=== PATIENT | female | born 1990 | race Caucasian/White ===

== ENCOUNTER 2016-12-09 02:15 | Emergency (ER) | payer MEDICAID, OTHER ==
[2016-12-09] MEDS ORDERED: KETOROLAC 30 MG/ML VIAL (J1885) As Ordered ONE (03:25)
[2016-12-09] MEDS ORDERED: CLINDAMYCIN INJ 900MG/6ML VIAL As Ordered ONE (03:25)
[2016-12-09] MEDS ORDERED: methylPREDNISolone INJ 125 MG/2 ML VIAL (J2930) As Ordered ONE (03:25)
[2016-12-09] MEDS ORDERED: ONDANSETRON 4MG/2ML VIAL (J2405) As Ordered ONE (03:44)
[2016-12-09] MEDS ORDERED: MORPHINE 4 MG/ML 1ML SYRINGE As Ordered ONE ×3 (03:44→06:43)
[2016-12-09 04:11] LABS: BASO % 0.3 % (0.0-1.0); EOS # 0.1 K/mm3 (0.0-0.50); LARGE UNSTAINED CELL # 0.2 K/mm3 (0.0-0.4); LARGE UNSTAINED CELL % 1.7 % (0.0-4.0); LYMPH # 2.5 K/mm3 (1.5-6.5); MEAN CORPUSCULAR HEMOGLOBIN 30.3 pg (27.0-33.0); MEAN CORPUSCULAR HGB CONC 34.3 g/dl (32.0-36.5); MEAN CORPUSCULAR VOLUME 88.3 fl (80.0-96.0); MONO # 0.6 K/mm3 (0.0-0.8); MONO % 5.1 % (0.0-5.0); NEUTROPHILS # 8.8 K/mm3 (1.8-7.7); NEUTROPHILS % 71.9 % (36.0-66.0); PLATELET COUNT, AUTOMATED 168 k/mm3 (150-450); RED CELL DISTRIBUTION WIDTH 12.3 % (11.5-14.5); WHITE BLOOD COUNT 12.3 K/mm3 (4.0-10.0)
[2016-12-09 04:25] LABS: CONTROL LINE HCG INT CTR LINE PRESENT
[2016-12-09 04:27] LABS: ERYTHROCYTE SEDIMENTATION RATE 10 mm/hr (0-20)
[2016-12-09 04:33] LABS: ALBUMIN 4.3 GM/DL (3.2-5.2); ALBUMIN/GLOBULIN RATIO 1.39 (1.00-1.93); ALKALINE PHOSPHATASE 79 U/L (45-117); ALT/SGPT 13 U/L (12-78); ANION GAP 9 MEQ/L (8-16); AST/SGOT 8 U/L (15-37); BILIRUBIN,TOTAL 0.6 MG/DL (0.2-1.0); BLOOD UREA NITROGEN 14 MG/DL (7-18); CALCIUM LEVEL 8.6 MG/DL (8.5-10.1); CARBON DIOXIDE LEVEL 25 MEQ/L (21-32); CHLORIDE LEVEL 108 MEQ/L (98-107); CREATININE FOR GFR 0.98 MG/DL (0.55-1.02); GLOMERULAR FILTRATION RATE > 60.0 (>60); GLUCOSE, FASTING 87 MG/DL (70-105); POTASSIUM SERUM 3.8 MEQ/L (3.5-5.1); SODIUM LEVEL 142 MEQ/L (136-145); TOTAL PROTEIN 7.4 GM/DL (6.4-8.2)
[2016-12-09] MEDS ORDERED: ISOVUE-370 76% 100ML VIAL (Q9967) As Ordered ONE (05:32)
--- NOTE | 2016-12-09 06:00 | REPUSA ---
HISTORY: Soft tissue infection. COMPARISON: TECHNIQUE: Multiple thin section helically-acquired axially-displayed and helically acquired coronall y displayed computed tomographic images of the face are obtained from the mandible through the fronta l sinuses, with images obtained at soft tissue and bone window. 2D reformatted images were performed. FINDINGS: Edema and swelling of the lower lip suggestive of cellulitis. Associated 1 cm abscess formation. IMPRESSION: Edema and swelling of the lower lip suggestive of cellulitis. Associated 1 cm abscess formation. Thank you for your kind referral of this patient
--- NOTE | 2016-12-09 07:08 | EDDOCDS ---
Physician Documentation [facility] Name: Sintia Hirsch Age: 26 yrs Sex: Female : 1990 Arrival Date: 12/09/2016 Time: 02:15 Bed 9 Private MD: Disposition: 12/09/16 06:40 Discharged to Home/Self Care. Impression: Cutaneous abscess of face - lower lip. - Condition is Stable. - Discharge Instructions: Abscess. - Medication Reconciliation, Local Pharmacy Hours form. - Follow up: David Trotter; When: Upon discharge from the Emergency Department; Reason: Continuance of care. - Problem is an acute exacerbation. - Symptoms have improved. - Notes: DR TROTTER WANTS YOU TO PRESENT TO HIS OFFICE THIS MORNING AT 0800 FOR EVALUATION FOR DRAINAGE. Historical: - Allergies: No known drug Allergies; - Home Meds: 1. naproxen 500 mg Oral tab 1 tab 2 times per day recently prescribed by [facility] 2. sulfamethoxazole-trimethoprim 800-160 mg Oral tab 1 tab every 12 hours (Last dose: 12/08/2016 20:00) - PMHx: scleroderma; - PSHx: retina reaatachment surgery - right eye; - Social history: Smoking status: Patient states was never smoker of tobacco. No barriers to communication noted, The patient speaks fluent Amharic, Speaks appropriately for age. - Family history: Not pertinent. - : The pt / caregiver states he / she is not on anticoagulants. Home medication list is obtained from the patient. - Exposure Risk Screening:: None identified. 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 5 in. (165.10 cm); Pain 9/10; 06:23 BP 126 / 71; Pulse 98; Resp 16; Temp 98.5; Pulse Ox 99% on R/A; Pain 5/10; cf2 02:24 Body Mass Index 21.47 (58.51 kg, 165.10 cm) nn1 MDM: 02:42 IV Saline Lock ordered. ef1 02:42 Solu-MEDROL 125 mg IVP once ordered. ef1 02:42 Clindamycin 900 mg IVPB once over 30 mins; dilute in 50mL of NS or D5W ordered. ef1 02:42 ketorolac 30 mg IVP once ordered. ef1 02:44 CBC with Diff Ordered. EDMS 02:44 Complete Comphrensive Metabolic Ordered. EDMS 02:50 ERYTHROCYTE SEDIMENTATION RATE Ordered. EDMS 02:51 C REACTIVE PROTEIN QUANTITATIV Ordered. EDMS 03:08 HCG,Serum Qualitative Ordered. EDMS 03:42 morphine 4 mg IVP every 30 minutes; Document pain score/vitals after each dose (Hold if mm11 SBP < 90mmHg) x2 ordered. 03:42 Ondansetron 4 mg IVP once ordered. mm11 03:51 Financial registration complete. [facility] 03:58 [facility] Payment Agreement was scanned into [employer] and attached to record. slh 04:29 CBC with Diff Reviewed. mm11 04:29 HCG,Serum Qualitative Reviewed. mm11 04:48 CBC with Diff Reviewed. mm11 04:48 Complete Comphrensive Metabolic Reviewed. mm11 04:48 C REACTIVE PROTEIN QUANTITATIV Reviewed. mm11 04:48 ERYTHROCYTE SEDIMENTATION RATE Reviewed. mm11 04:57 CT Maxillofacial with contrast Ordered. EDMS 06:37 CT Maxillofacial with contrast Reviewed. mm11 06:39 morphine 4 mg IVP once ordered. mm11 Administered Medications: 03:00 Drug: Solu-MEDROL 125 mg [Solu-Medrol 500 mg intravenous solution (125 mg)] Route: IVP; cf2 Site: left antecubital; 07:05 Follow up: Response: No significant change. cf2 03:00 Drug: Clindamycin 900 mg [clindamycin 300 mg/50 mL in 5 % dextrose intravenous cf2 piggyback] Route: IVPB; Infused Over: 30 mins; Site: left antecubital; 03:00 Drug: ketorolac 30 mg [ketorolac 30 mg/mL (1 mL) injection solution (1 mL)] Route: IVP; cf2 Site: left antecubital; 07:05 Follow up: Response: No significant change. cf2 03:45 Drug: morphine 4 mg [morphine 4 mg/mL intravenous cartridge (1 mL)] Route: IVP; Site: cf2 left antecubital; 03:45 Drug: Ondansetron 4 mg [ondansetron HCl 2 mg/mL intravenous solution (2 mL)] Route: cf2 IVP; Site: left antecubital; 07:04 Follow up: Response: No significant change. cf2 04:15 Drug: morphine 4 mg [morphine 4 mg/mL intravenous cartridge (1 mL)] Route: IVP; Site: cf2 left antecubital; 07:04 Follow up: Response: No significant change. cf2 06:45 Drug: morphine 4 mg [morphine 4 mg/mL intravenous cartridge (1 mL)] Route: IVP; Site: cf2 left antecubital; 07:03 Follow up: Response: No significant change. cf2 Signatures: Dispatcher MedHost EDMS Ryan Herring DO DO mm11 Nicole East PA-C PA-C ef1 Marcela Beyer NikkoleRN RN nn1 Jenifer Matta RN RN cf2 The chart was reviewed and I authenticate all verbal orders and agree with the evaluation and treatment provided.Corrections: (The following items were deleted from the chart) 02:50 02:44 ERYTHROCYTE SEDIMENTATION RATE+LAB ordered. EDMS EDMS 02:50 02:44 C REACTIVE PROTEIN QUANTITATIV+LAB ordered. EDMS EDMS Attachments: 03:58 [facility] Payment Agreement [facility] MTDD
--- NOTE | 2016-12-09 07:08 | EDDOCDS ---
Nurse's Notes [facility] Name: Sintia Hirsch Age: 26 yrs Sex: Female : 1990 Arrival Date: 12/09/2016 Time: 02:15 Bed 9 Private MD: Diagnosis: Cutaneous abscess of face-lower lip Presentation: 12/09 02:19 Presenting complaint: Patient states: infection of her lower lip. Lip is swollen and nn1 painful. Patient has history of autoimmume disease. Patient reports having pimple on lower lip 2 days ago, reports swelling and pain began yesterday, worsened overnight. Suicide/Homicide risk assessment- the patient denies having any suicidal and/or homicidal ideations and does not present with any other emotional, behavioral or mental health complaints. 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 Transition of care: patient was not received from another setting of care. 02:19 Method Of Arrival: Walkin/Carried/Asstd nn1 02:19 Acuity: FREDIS Level 4 nn1 02:19 Adult Sepsis Screening: The patient does not have new or worsening altered mentation. nn1 Patient's respiratory rate is less than 22. Systolic blood pressure is greater than 100. Patient has a qSOFA score of 0- Negative Sepsis Screen. Triage Assessment: 02:26 General: Appears uncomfortable. Pain: Location: lower lip Pain currently is 9 out of 10 nn1 on a pain scale. Pt Declines HIV testing. The patient is triaged at the bedside. See Assessment in Nurses Notes section of ED record. Neurological: No deficits noted. Respiratory: Airway is patent Respiratory effort is even, unlabored, Respiratory pattern is regular, symmetrical. Derm: Skin is pink, warm & dry. Swelling and discoloration noted to lower lip. Swollen area noted on lower lip. CRUISE GUIDE: 02:24 LMP 11/16/2016 nn1 Historical: - Allergies: No known drug Allergies; - Home Meds: 1. naproxen 500 mg Oral tab 1 tab 2 times per day recently prescribed by [facility] 2. sulfamethoxazole-trimethoprim 800-160 mg Oral tab 1 tab every 12 hours (Last dose: 12/08/2016 20:00) - PMHx: scleroderma; - PSHx: retina reaatachment surgery - right eye; - Social history: Smoking status: Patient states was never smoker of tobacco. No barriers to communication noted, The patient speaks fluent Portuguese, Speaks appropriately for age. - Family history: Not pertinent. - : The pt / caregiver states he / she is not on anticoagulants. Home medication list is obtained from the patient. - Exposure Risk Screening:: None identified. Screenin:06 Screening information is obtained from the patient. Fall risk: No risks identified. cf2 Assistance ADL's: requires no assistance with activities of daily living. Abuse/DV Screen: The patient / caregiver reports he/she is: not in a situation that causes fear, pain or injury. Nutritional screening: No deficits noted. Advance Directives: Further advance directive information is declined. home support is adequate. Assessment: 05:06 General: Appears distressed, Behavior is appropriate for age, cooperative. Pain: cf2 Location: mouth. Neurological: No deficits noted. EENT: No deficits noted. Cardiovascular: No deficits noted. Respiratory: No deficits noted. GI: No deficits noted. : No deficits noted. Derm: No deficits noted. Musculoskeletal: No deficits noted. 06:23 Reassessment: Patient states symptoms have improved. Adult Sepsis Screening: The cf2 patient does not have new or worsening altered mentation. Patient's respiratory rate is less than 22. Systolic blood pressure is greater than 100. Patient has a qSOFA score of 0- Negative Sepsis Screen. Vital Signs: 02:24 BP 140 / 60; Pulse 101; Resp 18; Temp 98.4(T); Pulse Ox 99% on R/A; Weight 58.51 kg; nn1 Height 5 ft. 5 in. (165.10 cm); Pain 9/10; 06:23 BP 126 / 71; Pulse 98; Resp 16; Temp 98.5; Pulse Ox 99% on R/A; Pain 5/10; cf2 02:24 Body Mass Index 21.47 (58.51 kg, 165.10 cm) nn1 Vitals: 02:24 Log In Time: December 09, 2016 at 02:17. nn1 ED Course: 02:16 Patient visited by Emy Vargas Reg. hs2 02:16 Patient moved to Waiting hs2 02:20 Triage Initiated nn1 02:28 Patient moved to 9 nn1 02:39 Nicole East PA-C is PHCP. ef1 02:40 Ryan Herring DO is Attending Physician. ef1 02:41 Patient visited by Nicole East PA-C. ef1 02:55 Jenifer Matta RN is Primary Nurse. cf2 02:55 Patient visited by Jenifer Matta RN. cf2 03:24 Patient visited by Jenifer Matta RN. cf2 03:53 Patient visited by Jenifer Matta RN. cf2 03:55 Patient visited by Jenifer Matta RN. cf2 03:55 Complete Comphrensive Metabolic Sent. cf2 03:55 CBC with Diff Sent. cf2 03:55 ERYTHROCYTE SEDIMENTATION RATE Sent. cf2 03:55 C REACTIVE PROTEIN QUANTITATIV Sent. cf2 03:55 HCG,Serum Qualitative Sent. cf2 03:58 [facility] Payment Agreement was scanned into [email or web address] and attached to record. [facility] 04:07 Patient name changed from Sintia\S\J\S\Hirsch\S\ to Sintia\S\Collin\S\Hirsch. EDMS 04:26 Patient visited by Jenifer Matta RN. cf2 04:56 Patient visited by Jenifer Matta RN. cf2 05:06 Patient visited by Jenifer Matta RN. cf2 05:06 The patient / caregiver is instructed regarding the plan of care and ED course. Patient soraya2 has correct armband on for positive identification. Placed in gown. Bed in low position. Call light in reach. Side rails up X 1. Side rails up X2. Property :Personal belongings accompany Pt. Door closed. Noise minimized. Visitors limited. Lights dimmed. Moved to private room. Verbal reassurance given. Warm blanket given. Pillow given. Head of bed elevated. 05:06 Inserted saline lock: 20 gauge in right antecubital area and blood collected. The cf2 patient tolerated the procedure well. No procedures done that require assistance. 05:46 Patient visited by Jenifer Matta RN. cf2 06:07 CT Maxillofacial with contrast Returned. EDMS 06:18 Patient visited by Ryan Herring DO. mm11 06:23 Patient visited by Jenifer Matta RN. cf2 06:39 David Trotter is Referral Physician. mm11 07:03 Patient visited by Jenifer Matta RN. cf2 07:03 Patient visited by Jenifer Matta,MITUL. cf2 07:05 Patient visited by Jenifer Matta,MITUL. cf2 Administered Medications: 03:00 Drug: Solu-MEDROL 125 mg [Solu-Medrol 500 mg intravenous solution (125 mg)] Route: IVP; cf2 Site: left antecubital; 07:05 Follow up: Response: No significant change. cf2 03:00 Drug: Clindamycin 900 mg [clindamycin 300 mg/50 mL in 5 % dextrose intravenous cf2 piggyback] Route: IVPB; Infused Over: 30 mins; Site: left antecubital; 03:00 Drug: ketorolac 30 mg [ketorolac 30 mg/mL (1 mL) injection solution (1 mL)] Route: IVP; cf2 Site: left antecubital; 07:05 Follow up: Response: No significant change. cf2 03:45 Drug: morphine 4 mg [morphine 4 mg/mL intravenous cartridge (1 mL)] Route: IVP; Site: cf2 left antecubital; 03:45 Drug: Ondansetron 4 mg [ondansetron HCl 2 mg/mL intravenous solution (2 mL)] Route: cf2 IVP; Site: left antecubital; 07:04 Follow up: Response: No significant change. cf2 04:15 Drug: morphine 4 mg [morphine 4 mg/mL intravenous cartridge (1 mL)] Route: IVP; Site: cf2 left antecubital; 07:04 Follow up: Response: No significant change. cf2 06:45 Drug: morphine 4 mg [morphine 4 mg/mL intravenous cartridge (1 mL)] Route: IVP; Site: cf2 left antecubital; 07:03 Follow up: Response: No significant change. cf2 Order Results: Lab Order: CBC with Diff; SPEC'M 12/09/16 03:40 Test: WHITE BLOOD COUNT; Value: 12.3; Range: 4.0-10.0; Abnormal: Above high normal; Units: K/mm3; Status: F Test: RED BLOOD COUNT; Value: 4.54; Range: 4.00-5.40; Units: M/mm3; Status: F Test: HEMOGLOBIN; Value: 13.8; Range: 12.0-16.0; Units: g/dl; Status: F Test: HEMATOCRIT; Value: 40.1; Range: 36.0-47.0; Units: %; Status: F Test: MEAN CORPUSCULAR VOLUME; Value: 88.3; Range: 80.0-96.0; Units: fl; Status: F Test: MEAN CORPUSCULAR HEMOGLOBIN; Value: 30.3; Range: 27.0-33.0; Units: pg; Status: F Test: MEAN CORPUSCULAR HGB CONC; Value: 34.3; Range: 32.0-36.5; Units: g/dl; Status: F Test: RED CELL DISTRIBUTION WIDTH; Value: 12.3; Range: 11.5-14.5; Units: %; Status: F Test: PLATELET COUNT, AUTOMATED; Value: 168; Range: 150-450; Units: k/mm3; Status: F Test: NEUTROPHILS %; Value: 71.9; Range: 36.0-66.0; Abnormal: Above high normal; Units: %; Status: F Test: LYMPH %; Value: 20.0; Range: 24.0-44.0; Abnormal: Below low normal; Units: %; Status: F Test: MONO %; Value: 5.1; Range: 0.0-5.0; Abnormal: Above high normal; Units: %; Status: F Test: EOS %; Value: 1.0; Range: 0.0-3.0; Units: %; Status: F Test: BASO %; Value: 0.3; Range: 0.0-1.0; Units: %; Status: F Test: LARGE UNSTAINED CELL %; Value: 1.7; Range: 0.0-4.0; Units: %; Status: F Test: NEUTROPHILS #; Value: 8.8; Range: 1.8-7.7; Abnormal: Above high normal; Units: K/mm3; Status: F Test: LYMPH #; Value: 2.5; Range: 1.5-6.5; Units: K/mm3; Status: F Test: MONO #; Value: 0.6; Range: 0.0-0.8; Units: K/mm3; Status: F Test: EOS #; Value: 0.1; Range: 0.0-0.50; Units: K/mm3; Status: F Test: BASO #; Value: 0.0; Range: 0.0-0.2; Units: K/mm3; Status: F Test: LARGE UNSTAINED CELL #; Value: 0.2; Range: 0.0-0.4; Units: K/mm3; Status: F Lab Order: Complete Comphrensive Metabolic; SPEC'M 12/09/16 03:40 Test: GLUCOSE, FASTING; Value: 87; Range: 70-105; Units: MG/DL; Status: F Test: BLOOD UREA NITROGEN; Value: 14; Range: 7-18; Units: MG/DL; Status: F Test: CREATININE FOR GFR; Value: 0.98; Range: 0.55-1.02; Units: MG/DL; Status: F Test: GLOMERULAR FILTRATION RATE; Value: > 60.0; Range: >60; Status: F Test: SODIUM LEVEL; Value: 142; Range: 136-145; Units: MEQ/L; Status: F Test: POTASSIUM SERUM; Value: 3.8; Range: 3.5-5.1; Units: MEQ/L; Status: F Test: CHLORIDE LEVEL; Value: 108; Range: 98-107; Abnormal: Above high normal; Units: MEQ/L; Status: F Test: CARBON DIOXIDE LEVEL; Value: 25; Range: 21-32; Units: MEQ/L; Status: F Test: ANION GAP; Value: 9; Range: 8-16; Units: MEQ/L; Status: F Test: CALCIUM LEVEL; Value: 8.6; Range: 8.5-10.1; Units: MG/DL; Status: F Test: AST/SGOT; Value: 8; Range: 15-37; Abnormal: Below low normal; Units: U/L; Status: F Test: ALT/SGPT; Value: 13; Range: 12-78; Units: U/L; Status: F Test: ALKALINE PHOSPHATASE; Value: 79; Range: 45-117; Units: U/L; Status: F Test: BILIRUBIN,TOTAL; Value: 0.6; Range: 0.2-1.0; Units: MG/DL; Status: F Test: TOTAL PROTEIN; Value: 7.4; Range: 6.4-8.2; Units: GM/DL; Status: F Test: ALBUMIN; Value: 4.3; Range: 3.2-5.2; Units: GM/DL; Status: F Test: ALBUMIN/GLOBULIN RATIO; Value: 1.39; Range: 1.00-1.93; Status: F Test Note: ; Units are mL/min/1.73 m2 Chronic Kidney Disease Staging per NKF: Stage I & II GFR >=60 Normal to Mildly Decreased Stage III GFR 30-59 Moderately Decreased Stage IV GFR 15-29 Severely Decreased Stage V GFR <15 Very Little GFR Left ESRD GFR <15 on 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 Lab Order: ERYTHROCYTE SEDIMENTATION RATE; SPEC'M 12/09/16 03:40 Test: ERYTHROCYTE SEDIMENTATION RATE; Value: 10; Range: 0-20; Units: mm/hr; Status: F Lab Order: C REACTIVE PROTEIN QUANTITATIV; SPEC'M 12/09/16 03:40 Test: C REACTIVE PROTEIN QUANTITATIV; Value: 2.66; Range: 0.00-0.30; Abnormal: Above high normal; Units: MG/DL; Status: F Lab Order: HCG,Serum Qualitative; SPEC'M 12/09/16 03:40 Test: HCG, SERUM QUALITATIVE; Value: NEGATIVE; Range: NEGATIVE; Status: F Radiology Order: CT Maxillofacial with contrast Test: CT Maxillofacial with contrast REASON FOR EXAMINATION: lip swelling; ; HISTORY: Soft tissue infection.; COMPARISON:; TECHNIQUE: Multiple thin section helically-acquired axially-displayed and helically acquired coronall; y displayed computed tomographic images of the face are obtained from the mandible through the fronta; l sinuses, with images obtained at soft tissue and bone window. 2D reformatted images were performed.; ; FINDINGS:; Edema and swelling of the lower lip suggestive of cellulitis.; Associated 1 cm abscess formation.; IMPRESSION:; Edema and swelling of the lower lip suggestive of cellulitis.; Associated 1 cm abscess formation.; Thank you for your kind referral of this patient; ; Outcome: 06:40 Discharge ordered by Provider. mm11 07:05 Discharge Assessment: Patient awake, alert and oriented x 3. No cognitive and/or cf2 functional deficits noted. Patient verbalized understanding of disposition instructions. Patient awake and alert. Oriented to person, place and time. patient administered narcotics - yes. Patient was admitted to the hospital or transferred to another facility. The following High Risk Discharge criteria are identified: None. Condition: good Condition: stable Condition: improved. Discharge instructions given to patient, Instructed on discharge instructions, medication usage, Demonstrated understanding of instructions, medications. CT Study completed. 07:06 Patient left the ED. cf2 Signatures: Dispatcher MedHost EDMS Ryan Herring DO DO mm11 Nicole East, PA-C PA-C ef1 Marcela Beyer NikkoleRN RN nn1 Emy Vargas, Reg Reg hs2 Jenifer Matta,RN RN cf2 Corrections: (The following items were deleted from the chart) 02:33 02:19 Acuity: FREDIS Level 3 nn1 nn1 MTDD
--- NOTE | 2016-12-11 08:08 | EDDOCDS ---
[facility] Name: Sintia Hirsch Age: 26 yrs Sex: Female : 1990 Arrival Date: 12/09/2016 Time: 02:15 Bed 9 Private MD: Diagnosis: Cutaneous abscess of face-lower lip Presentation: 12/09 02:19 Presenting complaint: Patient states: infection of her lower lip. Lip is swollen and nn1 painful. Patient has history of autoimmume disease. Patient reports having pimple on lower lip 2 days ago, reports swelling and pain began yesterday, worsened overnight. Suicide/Homicide risk assessment- the patient denies having any suicidal and/or homicidal ideations and does not present with any other emotional, behavioral or mental health complaints. Status: Patient is not a patient services assistant or dependent. Transition of care: patient was not received from another setting of care. 02:19 Method Of Arrival: Walkin/Carried/Asstd nn1 02:19 Acuity: FREDIS Level 4 nn1 02:19 Adult Sepsis Screening: The patient does not have new or worsening altered mentation. nn1 Patient's respiratory rate is less than 22. Systolic blood pressure is greater than 100. Patient has a qSOFA score of 0- Negative Sepsis Screen. Triage Assessment: 02:26 General: Appears uncomfortable. Pain: Location: lower lip Pain currently is 9 out of 10 nn1 on a pain scale. Pt Declines HIV testing. The patient is triaged at the bedside. See Assessment in Nurses Notes section of ED record. Neurological: No deficits noted. Respiratory: Airway is patent Respiratory effort is even, unlabored, Respiratory pattern is regular, symmetrical. Derm: Skin is pink, warm & dry. Swelling and discoloration noted to lower lip. Swollen area noted on lower lip. 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 naproxen 500 mg Oral tab 1 tab 2 times per day recently prescribed by [facility] 2. sulfamethoxazole-trimethoprim 800-160 mg Oral tab 1 tab every 12 hours (Last dose: 12/08/2016 20:00) - PMHx: scleroderma; - PSHx: retina reaatachment surgery - right eye; - Social history: Smoking status: Patient states was never smoker of tobacco. No barriers to communication noted, The patient speaks fluent Gabonese, Speaks appropriately for age. - Family history: Not pertinent. - : The pt / caregiver states he / she is not on anticoagulants. Home medication list is obtained from the patient. - Exposure Risk Screening:: None identified. Screenin:06 Screening information is obtained from the patient. Fall risk: No risks identified. cf2 Assistance ADL's: requires no assistance with activities of daily living. Abuse/DV Screen: The patient / caregiver reports he/she is: not in a situation that causes fear, pain or injury. Nutritional screening: No deficits noted. Advance Directives: Further advance directive information is declined. home support is adequate. Assessment: 05:06 General: Appears distressed, Behavior is appropriate for age, cooperative. Pain: cf2 Location: mouth. Neurological: No deficits noted. EENT: No deficits noted. Cardiovascular: No deficits noted. Respiratory: No deficits noted. GI: No deficits noted. : No deficits noted. Derm: No deficits noted. Musculoskeletal: No deficits noted. 06:23 Reassessment: Patient states symptoms have improved. Adult Sepsis Screening: The cf2 patient does not have new or worsening altered mentation. Patient's respiratory rate is less than 22. Systolic blood pressure is greater than 100. Patient has a qSOFA score of 0- Negative Sepsis Screen. Vital Signs: 02:24 BP 140 / 60; Pulse 101; Resp 18; Temp 98.4(T); Pulse Ox 99% on R/A; Weight 58.51 kg; nn1 Height 5 ft. 5 in. (165.10 cm); Pain 9/10; 06:23 BP 126 / 71; Pulse 98; Resp 16; Temp 98.5; Pulse Ox 99% on R/A; Pain 5/10; cf2 02:24 Body Mass Index 21.47 (58.51 kg, 165.10 cm) nn1 Vitals: 02:24 Log In Time: December 09, 2016 at 02:17. nn1 ED Course: 02:16 Patient visited by Emy Vargas Reg. hs2 02:16 Patient moved to Waiting hs2 02:20 Triage Initiated nn1 02:28 Patient moved to 9 nn1 02:39 Nicole East PA-C is PHCP. ef1 02:40 Ryan Herring DO is Attending Physician. ef1 02:41 Patient visited by Nicole East PA-C. ef1 02:55 Jenifer Matta RN is Primary Nurse. cf2 02:55 Patient visited by Jenifer Matta RN. cf2 03:24 Patient visited by Jenifer Matta RN. cf2 03:53 Patient visited by Jenifer Matta RN. cf2 03:55 Patient visited by Jenifer Matta RN. cf2 03:55 Complete Comphrensive Metabolic Sent. cf2 03:55 CBC with Diff Sent. cf2 03:55 ERYTHROCYTE SEDIMENTATION RATE Sent. cf2 03:55 C REACTIVE PROTEIN QUANTITATIV Sent. cf2 03:55 HCG,Serum Qualitative Sent. cf2 03:58 [facility] Payment Agreement was scanned into [employer] and attached to record. [facility] 04:07 Patient name changed from Sintia\S\J\S\Hirsch\S\ to Sintia\S\Collin\S\Hirsch. EDMS 04:26 Patient visited by Jenifer Matta RN. cf2 04:56 Patient visited by Jenifer Matta RN. cf2 05:06 Patient visited by Jenifer Matta RN. cf2 05:06 The patient / caregiver is instructed regarding the plan of care and ED course. Patient soraya2 has correct armband on for positive identification. Placed in gown. Bed in low position. Call light in reach. Side rails up X 1. Side rails up X2. Property :Personal belongings accompany Pt. Door closed. Noise minimized. Visitors limited. Lights dimmed. Moved to private room. Verbal reassurance given. Warm blanket given. Pillow given. Head of bed elevated. 05:06 Inserted saline lock: 20 gauge in right antecubital area and blood collected. The cf2 patient tolerated the procedure well. No procedures done that require assistance. 05:46 Patient visited by Jenifer Matta RN. cf2 06:07 CT Maxillofacial with contrast Returned. EDMS 06:18 Patient visited by Ryan Herring DO. mm11 06:23 Patient visited by Jenifer Matta RN. cf2 06:39 David Trotter is Referral Physician. mm11 07:03 Patient visited by Jenifer Matta,MITUL. cf2 07:03 Patient visited by Jenifer Matta,MITUL. cf2 07:05 Patient visited by Jenifer Matta,MITUL. cf2 14:20 T-Sheet-- Draft Copy was scanned into Native[employer] and attached to record. gb 14:20 Radiology Report was scanned into NativeX and attached to record. gb Administered Medications: 03:00 Drug: Solu-MEDROL 125 mg [Solu-Medrol 500 mg intravenous solution (125 mg)] Route: IVP; cf2 Site: left antecubital; 07:05 Follow up: Response: No significant change. cf2 03:00 Drug: Clindamycin 900 mg [clindamycin 300 mg/50 mL in 5 % dextrose intravenous cf2 piggyback] Route: IVPB; Infused Over: 30 mins; Site: left antecubital; 03:00 Drug: ketorolac 30 mg [ketorolac 30 mg/mL (1 mL) injection solution (1 mL)] Route: IVP; cf2 Site: left antecubital; 07:05 Follow up: Response: No significant change. cf2 03:45 Drug: morphine 4 mg [morphine 4 mg/mL intravenous cartridge (1 mL)] Route: IVP; Site: cf2 left antecubital; 03:45 Drug: Ondansetron 4 mg [ondansetron HCl 2 mg/mL intravenous solution (2 mL)] Route: cf2 IVP; Site: left antecubital; 07:04 Follow up: Response: No significant change. cf2 04:15 Drug: morphine 4 mg [morphine 4 mg/mL intravenous cartridge (1 mL)] Route: IVP; Site: cf2 left antecubital; 07:04 Follow up: Response: No significant change. cf2 06:45 Drug: morphine 4 mg [morphine 4 mg/mL intravenous cartridge (1 mL)] Route: IVP; Site: cf2 left antecubital; 07:03 Follow up: Response: No significant change. cf2 Order Results: Lab Order: CBC with Diff; SPEC'M 12/09/16 03:40 Test: WHITE BLOOD COUNT; Value: 12.3; Range: 4.0-10.0; Abnormal: Above high normal; Units: K/mm3; Status: F Test: RED BLOOD COUNT; Value: 4.54; Range: 4.00-5.40; Units: M/mm3; Status: F Test: HEMOGLOBIN; Value: 13.8; Range: 12.0-16.0; Units: g/dl; Status: F Test: HEMATOCRIT; Value: 40.1; Range: 36.0-47.0; Units: %; Status: F Test: MEAN CORPUSCULAR VOLUME; Value: 88.3; Range: 80.0-96.0; Units: fl; Status: F Test: MEAN CORPUSCULAR HEMOGLOBIN; Value: 30.3; Range: 27.0-33.0; Units: pg; Status: F Test: MEAN CORPUSCULAR HGB CONC; Value: 34.3; Range: 32.0-36.5; Units: g/dl; Status: F Test: RED CELL DISTRIBUTION WIDTH; Value: 12.3; Range: 11.5-14.5; Units: %; Status: F Test: PLATELET COUNT, AUTOMATED; Value: 168; Range: 150-450; Units: k/mm3; Status: F Test: NEUTROPHILS %; Value: 71.9; Range: 36.0-66.0; Abnormal: Above high normal; Units: %; Status: F Test: LYMPH %; Value: 20.0; Range: 24.0-44.0; Abnormal: Below low normal; Units: %; Status: F Test: MONO %; Value: 5.1; Range: 0.0-5.0; Abnormal: Above high normal; Units: %; Status: F Test: EOS %; Value: 1.0; Range: 0.0-3.0; Units: %; Status: F Test: BASO %; Value: 0.3; Range: 0.0-1.0; Units: %; Status: F Test: LARGE UNSTAINED CELL %; Value: 1.7; Range: 0.0-4.0; Units: %; Status: F Test: NEUTROPHILS #; Value: 8.8; Range: 1.8-7.7; Abnormal: Above high normal; Units: K/mm3; Status: F Test: LYMPH #; Value: 2.5; Range: 1.5-6.5; Units: K/mm3; Status: F Test: MONO #; Value: 0.6; Range: 0.0-0.8; Units: K/mm3; Status: F Test: EOS #; Value: 0.1; Range: 0.0-0.50; Units: K/mm3; Status: F Test: BASO #; Value: 0.0; Range: 0.0-0.2; Units: K/mm3; Status: F Test: LARGE UNSTAINED CELL #; Value: 0.2; Range: 0.0-0.4; Units: K/mm3; Status: F Lab Order: Complete Comphrensive Metabolic; SPEC'M 12/09/16 03:40 Test: GLUCOSE, FASTING; Value: 87; Range: 70-105; Units: MG/DL; Status: F Test: BLOOD UREA NITROGEN; Value: 14; Range: 7-18; Units: MG/DL; Status: F Test: CREATININE FOR GFR; Value: 0.98; Range: 0.55-1.02; Units: MG/DL; Status: F Test: GLOMERULAR FILTRATION RATE; Value: > 60.0; Range: >60; Status: F Test: SODIUM LEVEL; Value: 142; Range: 136-145; Units: MEQ/L; Status: F Test: POTASSIUM SERUM; Value: 3.8; Range: 3.5-5.1; Units: MEQ/L; Status: F Test: CHLORIDE LEVEL; Value: 108; Range: 98-107; Abnormal: Above high normal; Units: MEQ/L; Status: F Test: CARBON DIOXIDE LEVEL; Value: 25; Range: 21-32; Units: MEQ/L; Status: F Test: ANION GAP; Value: 9; Range: 8-16; Units: MEQ/L; Status: F Test: CALCIUM LEVEL; Value: 8.6; Range: 8.5-10.1; Units: MG/DL; Status: F Test: AST/SGOT; Value: 8; Range: 15-37; Abnormal: Below low normal; Units: U/L; Status: F Test: ALT/SGPT; Value: 13; Range: 12-78; Units: U/L; Status: F Test: ALKALINE PHOSPHATASE; Value: 79; Range: 45-117; Units: U/L; Status: F Test: BILIRUBIN,TOTAL; Value: 0.6; Range: 0.2-1.0; Units: MG/DL; Status: F Test: TOTAL PROTEIN; Value: 7.4; Range: 6.4-8.2; Units: GM/DL; Status: F Test: ALBUMIN; Value: 4.3; Range: 3.2-5.2; Units: GM/DL; Status: F Test: ALBUMIN/GLOBULIN RATIO; Value: 1.39; Range: 1.00-1.93; Status: F Test Note: ; Units are mL/min/1.73 m2 Chronic Kidney Disease Staging per NKF: Stage I & II GFR >=60 Normal to Mildly Decreased Stage III GFR 30-59 Moderately Decreased Stage IV GFR 15-29 Severely Decreased Stage V GFR <15 Very Little GFR Left ESRD GFR <15 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 Lab Order: ERYTHROCYTE SEDIMENTATION RATE; SPEC'M 12/09/16 03:40 Test: ERYTHROCYTE SEDIMENTATION RATE; Value: 10; Range: 0-20; Units: mm/hr; Status: F Lab Order: C REACTIVE PROTEIN QUANTITATIV; SPEC'M 12/09/16 03:40 Test: C REACTIVE PROTEIN QUANTITATIV; Value: 2.66; Range: 0.00-0.30; Abnormal: Above high normal; Units: MG/DL; Status: F Lab Order: HCG,Serum Qualitative; SPEC'M 12/09/16 03:40 Test: HCG, SERUM QUALITATIVE; Value: NEGATIVE; Range: NEGATIVE; Status: F Radiology Order: CT Maxillofacial with contrast Test: CT Maxillofacial with contrast REASON FOR EXAMINATION: lip swelling; ; HISTORY: Soft tissue infection.; COMPARISON:; TECHNIQUE: Multiple thin section helically-acquired axially-displayed and helically acquired coronall; y displayed computed tomographic images of the face are obtained from the mandible through the fronta; l sinuses, with images obtained at soft tissue and bone window. 2D reformatted images were performed.; ; FINDINGS:; Edema and swelling of the lower lip suggestive of cellulitis.; Associated 1 cm abscess formation.; IMPRESSION:; Edema and swelling of the lower lip suggestive of cellulitis.; Associated 1 cm abscess formation.; Thank you for your kind referral of this patient; ; Outcome: 06:40 Discharge ordered by Provider. mm11 07:05 Discharge Assessment: Patient awake, alert and oriented x 3. No cognitive and/or cf2 functional deficits noted. Patient verbalized understanding of disposition instructions. Patient awake and alert. Oriented to person, place and time. patient administered narcotics - yes. Patient was admitted to the hospital or transferred to another facility. The following High Risk Discharge criteria are identified: None. Condition: good Condition: stable Condition: improved. Discharge instructions given to patient, Instructed on discharge instructions, medication usage, Demonstrated understanding of instructions, medications. CT Study completed. 07:06 Patient left the ED. cf2 Signatures: Dispatcher [employer] EDMS Julissa Lynch, Reg Reg gb Ryan Herring, DO mm11 Nicole East PA-C PAMata ef1 Marcela Beyer Nikkole, RN RN nn1 Emy Vargas, Reg Reg hs2 Jenifer Matta RN RN cf2 Corrections: (The following items were deleted from the chart) 02:33 02:19 Acuity: FREDIS Level 3 nn1 nn1 Chart Complete MTDD
--- NOTE | 2016-12-11 08:08 | EDDOCDS ---
Physician Documentation [facility] Name: Sintia Hirsch Age: 26 yrs Sex: Female : 1990 Arrival Date: 12/09/2016 Time: 02:15 Bed 9 Private MD: Disposition: 12/09/16 06:40 Discharged to Home/Self Care. Impression: Cutaneous abscess of face - lower lip. - Condition is Stable. - Discharge Instructions: Abscess. - Medication Reconciliation, Local Pharmacy Hours form. - Follow up: David Trotter; When: Upon discharge from the Emergency Department; Reason: Continuance of care. - Problem is an acute exacerbation. - Symptoms have improved. - Notes: DR TROTTER WANTS YOU TO PRESENT TO HIS OFFICE THIS MORNING AT 0800 FOR EVALUATION FOR DRAINAGE. Historical: - Allergies: No known drug Allergies; - Home Meds: 1. naproxen 500 mg Oral tab 1 tab 2 times per day recently prescribed by [facility] 2. sulfamethoxazole-trimethoprim 800-160 mg Oral tab 1 tab every 12 hours (Last dose: 12/08/2016 20:00) - PMHx: scleroderma; - PSHx: retina reaatachment surgery - right eye; - Social history: Smoking status: Patient states was never smoker of tobacco. No barriers to communication noted, The patient speaks fluent Azeri, Speaks appropriately for age. - Family history: Not pertinent. - : The pt / caregiver states he / she is not on anticoagulants. Home medication list is obtained from the patient. - Exposure Risk Screening:: None identified. 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 5 in. (165.10 cm); Pain 9/10; 06:23 BP 126 / 71; Pulse 98; Resp 16; Temp 98.5; Pulse Ox 99% on R/A; Pain 5/10; cf2 02:24 Body Mass Index 21.47 (58.51 kg, 165.10 cm) nn1 MDM: 02:42 IV Saline Lock ordered. ef1 02:42 Solu-MEDROL 125 mg IVP once ordered. ef1 02:42 Clindamycin 900 mg IVPB once over 30 mins; dilute in 50mL of NS or D5W ordered. ef1 02:42 ketorolac 30 mg IVP once ordered. ef1 02:44 CBC with Diff Ordered. EDMS 02:44 Complete Comphrensive Metabolic Ordered. EDMS 02:50 ERYTHROCYTE SEDIMENTATION RATE Ordered. EDMS 02:51 C REACTIVE PROTEIN QUANTITATIV Ordered. EDMS 03:08 HCG,Serum Qualitative Ordered. EDMS 03:42 morphine 4 mg IVP every 30 minutes; Document pain score/vitals after each dose (Hold if mm11 SBP < 90mmHg) x2 ordered. 03:42 Ondansetron 4 mg IVP once ordered. mm11 03:51 Financial registration complete. [facility] 03:58 [facility] Payment Agreement was scanned into [employer] and attached to record. slh 04:29 CBC with Diff Reviewed. mm11 04:29 HCG,Serum Qualitative Reviewed. mm11 04:48 CBC with Diff Reviewed. mm11 04:48 Complete Comphrensive Metabolic Reviewed. mm11 04:48 C REACTIVE PROTEIN QUANTITATIV Reviewed. mm11 04:48 ERYTHROCYTE SEDIMENTATION RATE Reviewed. mm11 04:57 CT Maxillofacial with contrast Ordered. EDMS 06:37 CT Maxillofacial with contrast Reviewed. mm11 06:39 morphine 4 mg IVP once ordered. mm11 14:20 T-Sheet-- Draft Copy was scanned into [employer] and attached to record. 14:20 Radiology Report was scanned into [employer] and attached to record. gb Administered Medications: 03:00 Drug: Solu-MEDROL 125 mg [Solu-Medrol 500 mg intravenous solution (125 mg)] Route: IVP; cf2 Site: left antecubital; 07:05 Follow up: Response: No significant change. cf2 03:00 Drug: Clindamycin 900 mg [clindamycin 300 mg/50 mL in 5 % dextrose intravenous cf2 piggyback] Route: IVPB; Infused Over: 30 mins; Site: left antecubital; 03:00 Drug: ketorolac 30 mg [ketorolac 30 mg/mL (1 mL) injection solution (1 mL)] Route: IVP; cf2 Site: left antecubital; 07:05 Follow up: Response: No significant change. cf2 03:45 Drug: morphine 4 mg [morphine 4 mg/mL intravenous cartridge (1 mL)] Route: IVP; Site: cf2 left antecubital; 03:45 Drug: Ondansetron 4 mg [ondansetron HCl 2 mg/mL intravenous solution (2 mL)] Route: cf2 IVP; Site: left antecubital; 07:04 Follow up: Response: No significant change. cf2 04:15 Drug: morphine 4 mg [morphine 4 mg/mL intravenous cartridge (1 mL)] Route: IVP; Site: cf2 left antecubital; 07:04 Follow up: Response: No significant change. cf2 06:45 Drug: morphine 4 mg [morphine 4 mg/mL intravenous cartridge (1 mL)] Route: IVP; Site: cf2 left antecubital; 07:03 Follow up: Response: No significant change. cf2 Signatures: Dispatcher [employer] EDMS Julissa Lynch, Reg Reg gb Ryan Herring DO DO mm11 Nicole East, PAEllenC PA-C ef1 Marcela Beyer Nikkole,RN RN nn1 Jenifer Matta,RN RN cf2 The chart was reviewed and I authenticate all verbal orders and agree with the evaluation and treatment provided.Corrections: (The following items were deleted from the chart) 02:50 02:44 ERYTHROCYTE SEDIMENTATION RATE+LAB ordered. EDMS EDMS 02:50 02:44 C REACTIVE PROTEIN QUANTITATIV+LAB ordered. EDMS EDMS Attachments: 03:58 [facility] [place] Agreement [facility] 14:20 T-Sheet-- Draft Copy Chart Complete [facility]
--- NOTE | 2016-12-11 08:08 | EDDOCDS ---
Physician Documentation [facility] Name: Sintia Hirsch Age: 26 yrs Sex: Female : 1990 Arrival Date: 12/09/2016 Time: 02:15 Bed 9 Private MD: Disposition: 12/09/16 06:40 Discharged to Home/Self Care. Impression: Cutaneous abscess of face - lower lip. - Condition is Stable. - Discharge Instructions: Abscess. - Medication Reconciliation, Local Pharmacy Hours form. - Follow up: David Trotter; When: Upon discharge from the Emergency Department; Reason: Continuance of care. - Problem is an acute exacerbation. - Symptoms have improved. - Notes: DR TROTTER WANTS YOU TO PRESENT TO HIS OFFICE THIS MORNING AT 0800 FOR EVALUATION FOR DRAINAGE. Historical: - Allergies: No known drug Allergies; - Home Meds: 1. naproxen 500 mg Oral tab 1 tab 2 times per day recently prescribed by [facility] 2. sulfamethoxazole-trimethoprim 800-160 mg Oral tab 1 tab every 12 hours (Last dose: 12/08/2016 20:00) - PMHx: scleroderma; - PSHx: retina reaatachment surgery - right eye; - Social history: Smoking status: Patient states was never smoker of tobacco. No barriers to communication noted, The patient speaks fluent Frisian, Speaks appropriately for age. - Family history: Not pertinent. - : The pt / caregiver states he / she is not on anticoagulants. Home medication list is obtained from the patient. - Exposure Risk Screening:: None identified. 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 5 in. (165.10 cm); Pain 9/10; 06:23 BP 126 / 71; Pulse 98; Resp 16; Temp 98.5; Pulse Ox 99% on R/A; Pain 5/10; cf2 02:24 Body Mass Index 21.47 (58.51 kg, 165.10 cm) nn1 MDM: 02:42 IV Saline Lock ordered. ef1 02:42 Solu-MEDROL 125 mg IVP once ordered. ef1 02:42 Clindamycin 900 mg IVPB once over 30 mins; dilute in 50mL of NS or D5W ordered. ef1 02:42 ketorolac 30 mg IVP once ordered. ef1 02:44 CBC with Diff Ordered. EDMS 02:44 Complete Comphrensive Metabolic Ordered. EDMS 02:50 ERYTHROCYTE SEDIMENTATION RATE Ordered. EDMS 02:51 C REACTIVE PROTEIN QUANTITATIV Ordered. EDMS 03:08 HCG,Serum Qualitative Ordered. EDMS 03:42 morphine 4 mg IVP every 30 minutes; Document pain score/vitals after each dose (Hold if mm11 SBP < 90mmHg) x2 ordered. 03:42 Ondansetron 4 mg IVP once ordered. mm11 03:51 Financial registration complete. [facility] 03:58 [facility] Payment Agreement was scanned into [employer] and attached to record. slh 04:29 CBC with Diff Reviewed. mm11 04:29 HCG,Serum Qualitative Reviewed. mm11 04:48 CBC with Diff Reviewed. mm11 04:48 Complete Comphrensive Metabolic Reviewed. mm11 04:48 C REACTIVE PROTEIN QUANTITATIV Reviewed. mm11 04:48 ERYTHROCYTE SEDIMENTATION RATE Reviewed. mm11 04:57 CT Maxillofacial with contrast Ordered. EDMS 06:37 CT Maxillofacial with contrast Reviewed. mm11 06:39 morphine 4 mg IVP once ordered. mm11 14:20 T-Sheet-- Draft Copy was scanned into [employer] and attached to record. 14:20 Radiology Report was scanned into [employer] and attached to record. gb Administered Medications: 03:00 Drug: Solu-MEDROL 125 mg [Solu-Medrol 500 mg intravenous solution (125 mg)] Route: IVP; cf2 Site: left antecubital; 07:05 Follow up: Response: No significant change. cf2 03:00 Drug: Clindamycin 900 mg [clindamycin 300 mg/50 mL in 5 % dextrose intravenous cf2 piggyback] Route: IVPB; Infused Over: 30 mins; Site: left antecubital; 03:00 Drug: ketorolac 30 mg [ketorolac 30 mg/mL (1 mL) injection solution (1 mL)] Route: IVP; cf2 Site: left antecubital; 07:05 Follow up: Response: No significant change. cf2 03:45 Drug: morphine 4 mg [morphine 4 mg/mL intravenous cartridge (1 mL)] Route: IVP; Site: cf2 left antecubital; 03:45 Drug: Ondansetron 4 mg [ondansetron HCl 2 mg/mL intravenous solution (2 mL)] Route: cf2 IVP; Site: left antecubital; 07:04 Follow up: Response: No significant change. cf2 04:15 Drug: morphine 4 mg [morphine 4 mg/mL intravenous cartridge (1 mL)] Route: IVP; Site: cf2 left antecubital; 07:04 Follow up: Response: No significant change. cf2 06:45 Drug: morphine 4 mg [morphine 4 mg/mL intravenous cartridge (1 mL)] Route: IVP; Site: cf2 left antecubital; 07:03 Follow up: Response: No significant change. cf2 Signatures: Dispatcher [employer] EDMS Julissa Lynch, Reg Reg gb Ryan Herring DO DO mm11 Nicole East, PAEllenC PA-C ef1 Marcela Beyer Nikkole,RN RN nn1 Jenifer Matta,RN RN cf2 The chart was reviewed and I authenticate all verbal orders and agree with the evaluation and treatment provided.Corrections: (The following items were deleted from the chart) 02:50 02:44 ERYTHROCYTE SEDIMENTATION RATE+LAB ordered. EDMS EDMS 02:50 02:44 C REACTIVE PROTEIN QUANTITATIV+LAB ordered. EDMS EDMS Attachments: 03:58 [facility] Payment Agreement [facility] 14:20 T-Sheet-- Draft Copy Chart [facility]
== END 2016-12-09 07:06 | disposition home or self-care (01) ==
LOC: M ED 02:15
DX: K13.0 Diseases of lips (principal); M34.9 Systemic sclerosis, unspecified
CPT/HCPCS: 36415; 70487; 80053; 84703; 85025; 85652; 86140; 96374; 96375; 96376; 99284; J1885; J2405; J2930; Q9967

== ENCOUNTER 2016-12-09 09:10 | Emergency (ER) | payer MEDICAID ==
[2016-12-09] MEDS ORDERED: KETOROLAC 30 MG/ML VIAL (J1885) As Ordered ONE (10:09)
[2016-12-09] MEDS ORDERED: VANCOMYCIN 1000 MG/20 ML VIAL (J3370) As Ordered ONE (10:28)
[2016-12-09] MEDS ORDERED: VANCOMYCIN HCL 500 MG/10 ML VIAL (J3370) As Ordered ONE (10:28)
--- NOTE | 2016-12-09 12:08 | EDDOCDS ---
Physician Documentation [facility] Name: Sintia Hirshc Age: 26 yrs Sex: Female : 1990 Arrival Date: 12/09/2016 Time: 09:10 Bed I2 / M2 Private MD: Chai Sanabria R. Disposition: 12/09/16 10:28 Discharged to Home/Self Care. Impression: Cutaneous abscess of face - recheck. - Condition is Stable. - Medication Reconciliation form. - Follow up: Emergency Department; When: in 12 hours for a repeat dose of the antibiotic. . - Problem is an ongoing problem. - Symptoms are unchanged. Historical: - Home Meds: 1. naproxen 500 mg Oral tab 1 tab 2 times per day recently prescribed by [facility] 2. sulfamethoxazole-trimethoprim 800-160 mg Oral tab 1 tab every 12 hours - PMHx: scleroderma; - PSHx: retina reaatachment surgery - right eye; - Social history: Smoking status: Patient states was never smoker of tobacco. No barriers to communication noted, The patient speaks fluent Israeli, Speaks appropriately for age. - Family history: Not pertinent. - : The pt / caregiver states he / she is not on anticoagulants. Home medication list is obtained from the patient. - Exposure Risk Screening:: None identified. 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 5 in. (165.10 cm); Pain 5/10; 10:31 BP 121 / 65; Pulse 72; Resp 18; Temp 98.7(TE); Pulse Ox 97% on R/A; Pain 6/10; dem1 11:54 BP 117 / 65; Pulse 89; Resp 16; Temp 99.4(TE); Pulse Ox 96% on R/A; Pain 0/10; dem1 09:12 Body Mass Index 21.47 (58.51 kg, 165.10 cm) elp MDM: 09:55 IV Saline Lock ordered. cc10 10:06 ketorolac 30 mg IVP once ordered. cc10 10:19 Financial registration complete. lg 10:25 vancomycin (loading dose for pt. wt. 50-59kg) 1250 mg IVPB once ordered. cc10 11:41 [facility] Payment Agreement was scanned into [employer] and attached to record. lg Administered Medications: 10:11 Drug: ketorolac 30 mg [ketorolac 30 mg/mL (1 mL) injection solution (1 mL)] Route: IVP; jmk Site: left forearm; 10:56 Follow up: Response: Pain is decreased [facility] 10:42 Drug: vancomycin (loading dose for pt. wt. 50-59kg) 1250 mg Route: IVPB; Site: left jmk forearm; 11:52 Follow up: IV Status: Completed infusion kr3 12:06 Follow up: IV Status: Completed infusion [facility] Signatures: Dispatcher MedHost EDMS Som Mcdonald RN RN Collin OlivoRN RN tamannak Roddy Flores, Kan Reg lg Oscar, Jayce, PA-C PA-C cc10 Anjali Payton RN kr3 The chart was reviewed and I authenticate all verbal orders and agree with the evaluation and treatment provided.Corrections: (The following items were deleted from the chart) 09:58 09:56 CBC WITH DIFFERENTIAL+LAB ordered. EDMS EDMS 09:58 09:56 BASIC METABOLIC PROFILE+LAB ordered. EDMS EDMS Attachments: 11:41 [facility] Payment Agreement lg MTDD
--- NOTE | 2016-12-09 12:10 | EDDOCDS ---
Nurse's Notes [facility] Name: Sintia Hirsch Age: 26 yrs Sex: Female : 1990 Arrival Date: 12/09/2016 Time: 09:10 Bed I2 / M2 Private MD: Chai Sanabria R. Diagnosis: Cutaneous abscess of face-recheck Presentation: 12/09 09:34 Presenting complaint: Patient states: has infected lower lip - had abcess opened during j night. was seen by ENT (Dr. Trotter) this am - sent back to ED for admission. no more drainage. Adult Sepsis Screening: The patient does not have new or worsening altered mentation. Patient's respiratory rate is less than 22. Systolic blood pressure is greater than 100. Patient has a qSOFA score of 0- Negative Sepsis Screen. Suicide/Homicide risk assessment- the patient denies having any suicidal and/or homicidal ideations and does not present with any other emotional, behavioral or mental health complaints. Status: Patient is not a kosher dietary service supervisor or dependent. Transition of care: patient was not received from another setting of care. 09:34 Acuity: FREDIS Level 3 [facility] 09:34 Method Of Arrival: Walkin/Carried/Asstd [facility] Triage Assessment: 09:38 General: Appears in no apparent distress, comfortable, Behavior is cooperative. Pain: [facility] Location: mouth Pain currently is 5 out of 10 on a pain scale. HIV screening NA for this visit Offered previously. 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 naproxen 500 mg Oral tab 1 tab 2 times per day recently prescribed by [facility] 2. sulfamethoxazole-trimethoprim 800-160 mg Oral tab 1 tab every 12 hours - PMHx: scleroderma; - PSHx: retina reaatachment surgery - right eye; - Social history: Smoking status: Patient states was never smoker of tobacco. No barriers to communication noted, The patient speaks fluent Chadian, Speaks appropriately for age. - Family history: Not pertinent. - : The pt / caregiver states he / she is not on anticoagulants. Home medication list is obtained from the patient. - Exposure Risk Screening:: None identified. Screenin:11 Screening information is obtained from the patient. Fall risk: No risks identified. jmk Assistance ADL's: requires no assistance with activities of daily living. Abuse/DV Screen: The patient / caregiver reports he/she is: not in a situation that causes fear, pain or injury. Nutritional screening: No deficits noted. Advance Directives: Currently, there is no health care proxy. There is no active DNR order. There is no living will. There is no Power of Tube Coremaker. home support is adequate. Assessment: 10:11 General: Appears in no apparent distress, skin warm and dry color satisfactory. Moist jmk pink oral mucosa. lower lip swollen and protruding. denies nausea . reports pian level of 6/10 and medicated for same. 11:11 General: Appears states adequate pain control at 5/10. IV vanco infusing without event..jmk 11:41 General: Appears resting with eyes closed resp easy and regular. vanco nearing jmk completion. 12:06 General: Appears reports less pain. receptive to discharge. saline lock maintained and jmk instructed regarding care of same. secured additionally with pilar wrap.. Vital Signs: 09:12 BP 134 / 68; Pulse 86; Resp 18; Temp 97.9; Pulse Ox 99% ; Weight 58.51 kg; Height 5 ft. elp 5 in. (165.10 cm); Pain 5/10; 10:31 BP 121 / 65; Pulse 72; Resp 18; Temp 98.7(TE); Pulse Ox 97% on R/A; Pain 6/10; dem1 11:54 BP 117 / 65; Pulse 89; Resp 16; Temp 99.4(TE); Pulse Ox 96% on R/A; Pain 0/10; dem1 09:12 Body Mass Index 21.47 (58.51 kg, 165.10 cm) [facility] Vitals: 09:12 Log In Time: December 09, 2016 at 09:00. [facility] ED Course: 09:12 Patient visited by Angie Schwartz PCA. elp 09:12 Chai Sanabria is Private Physician. elp 09:12 Patient moved to Waiting elp 09:13 Patient visited by Angie Schwartz PCA. elp 09:13 Patient moved to Pre RCE elp 09:37 Triage Initiated bc 09:39 Patient visited by Som Mcdonald RN. [facility] 09:45 Patient moved to Triage 2 dwg 09:47 [facility] cc[facility] 09:47 Lencho Arana MD is Attending Physician. cc10 09:51 Patient visited by Jayce Moore PA-C. cc10 09:51 Patient visited by Jayce Moore PA-C. cc10 09:55 Patient moved to I2 / M2 [facility] 10:06 Patient visited by Collin Barrera,MITUL. k 10:11 The patient / caregiver is instructed regarding the plan of care and ED course. jmk 10:11 Inserted saline lock: 20 gauge in left forearm. jmk 10:14 Patient visited by Collin Barrera,MITUL. jmk 10:32 Patient visited by Yvonne Rao. dem1 11:41 [facility] Payment Agreement was scanned into [employer] and attached to record. lg 11:42 Patient visited by Collin Barrera,MITUL. k 11:54 Patient visited by Yvonne Rao. [facility] 12:06 No procedures done that require assistance. [facility] Administered Medications: 10:11 Drug: ketorolac 30 mg [ketorolac 30 mg/mL (1 mL) injection solution (1 mL)] Route: IVP; k Site: left forearm; 10:56 Follow up: Response: Pain is decreased k 10:42 Drug: vancomycin (loading dose for pt. wt. 50-59kg) 1250 mg Route: IVPB; Site: left jmk forearm; 11:52 Follow up: IV Status: Completed infusion [facility] 12:06 Follow up: IV Status: Completed infusion [facility] Order Results: There are currently no results for this order. Outcome: 10:28 Discharge ordered by Provider. cc10 12:06 Discharge Assessment: Patient awake, alert and oriented x 3. No cognitive and/or k functional deficits noted. Patient verbalized understanding of disposition instructions. Patient patient administered narcotics - no. The following High Risk Discharge criteria are identified: None. Condition: good. No special radiology studies were completed. Property :Personal belongings accompany Pt. 12:08 Patient left the ED. [facility] Signatures: Elvin Diaz RN RN dwg Johnson, Bruce, RN RN bcj Knapp, Jean,MITUL BAUMAN Roddy Zurita, Kan Omer Anjali Payton RN RN kr3 Yvonne Rao1 Lana, Angie, MATERIAL CONTROL ANALYST MATERIAL CONTROL ANALYST elp Oscar, Jayce, PA-C PA-C cc10 MTDD
--- NOTE | 2016-12-11 13:09 | EDDOCDS ---
Physician Documentation [facility] Name: Sintia Hirsch Age: 26 yrs Sex: Female : 1990 Arrival Date: 12/09/2016 Time: 09:10 Bed I2 / M2 Private MD: Chai Sanabria R. Disposition: 12/09/16 10:28 Discharged to Home/Self Care. Impression: Cutaneous abscess of face - recheck. - Condition is Stable. - Medication Reconciliation form. - Follow up: Emergency Department; When: in 12 hours for a repeat dose of the antibiotic. . - Problem is an ongoing problem. - Symptoms are unchanged. Historical: - Home Meds: 1. naproxen 500 mg Oral tab 1 tab 2 times per day recently prescribed by [facility] 2. sulfamethoxazole-trimethoprim 800-160 mg Oral tab 1 tab every 12 hours - PMHx: scleroderma; - PSHx: retina reaatachment surgery - right eye; - Social history: Smoking status: Patient states was never smoker of tobacco. No barriers to communication noted, The patient speaks fluent Cambodian, Speaks appropriately for age. - Family history: Not pertinent. - : The pt / caregiver states he / she is not on anticoagulants. Home medication list is obtained from the patient. - Exposure Risk Screening:: None identified. 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 5 in. (165.10 cm); Pain 5/10; 10:31 BP 121 / 65; Pulse 72; Resp 18; Temp 98.7(TE); Pulse Ox 97% on R/A; Pain 6/10; dem1 11:54 BP 117 / 65; Pulse 89; Resp 16; Temp 99.4(TE); Pulse Ox 96% on R/A; Pain 0/10; dem1 09:12 Body Mass Index 21.47 (58.51 kg, 165.10 cm) elp MDM: 09:55 IV Saline Lock ordered. cc10 10:06 ketorolac 30 mg IVP once ordered. cc10 10:19 Financial registration complete. lg 10:25 vancomycin (loading dose for pt. wt. 50-59kg) 1250 mg IVPB once ordered. cc10 11:41 [facility] Payment Agreement was scanned into [employer] and attached to record. lg 14:21 T-Sheet-- Draft Copy was scanned into [employer] and attached to record. gb Administered Medications: 10:11 Drug: ketorolac 30 mg [ketorolac 30 mg/mL (1 mL) injection solution (1 mL)] Route: IVP; [facility] Site: left forearm; 10:56 Follow up: Response: Pain is decreased [facility] 10:42 Drug: vancomycin (loading dose for pt. wt. 50-59kg) 1250 mg Route: IVPB; Site: left jmk forearm; 11:52 Follow up: IV Status: Completed infusion kr3 12:06 Follow up: IV Status: Completed infusion [facility] Signatures: Dispatcher [employer] EDMS Som Mcdonald, RN RN Collin Olivo RN RN Julissa Jones, Reg Reg gb Roddy Flores, Reg Reg lg Jayce Moore, PA-C PA-C cc10 Anjali Payton RN kr3 The chart was reviewed and I authenticate all verbal orders and agree with the evaluation and treatment provided.Corrections: (The following items were deleted from the chart) 09:58 09:56 CBC WITH DIFFERENTIAL+LAB ordered. EDMS EDMS 09:58 09:56 BASIC METABOLIC PROFILE+LAB ordered. EDMS EDMS Attachments: 11:41 [facility] Payment Agreement lg 14:21 T-Sheet-- Draft Copy gb Chart Complete MTDD
--- NOTE | 2016-12-11 13:09 | EDDOCDS ---
Physician Documentation [facility] Name: Sintia Hirsch Age: 26 yrs Sex: Female : 1990 Arrival Date: 12/09/2016 Time: 09:10 Bed I2 / M2 Private MD: Chai Sanabria R. Disposition: 12/09/16 10:28 Discharged to Home/Self Care. Impression: Cutaneous abscess of face - recheck. - Condition is Stable. - Medication Reconciliation form. - Follow up: Emergency Department; When: in 12 hours for a repeat dose of the antibiotic. . - Problem is an ongoing problem. - Symptoms are unchanged. Historical: - Home Meds: 1. naproxen 500 mg Oral tab 1 tab 2 times per day recently prescribed by [facility] 2. sulfamethoxazole-trimethoprim 800-160 mg Oral tab 1 tab every 12 hours - PMHx: scleroderma; - PSHx: retina reaatachment surgery - right eye; - Social history: Smoking status: Patient states was never smoker of tobacco. No barriers to communication noted, The patient speaks fluent [place], Speaks appropriately for age. - Family history: Not pertinent. - : The pt / caregiver states he / she is not on anticoagulants. Home medication list is obtained from the patient. - Exposure Risk Screening:: None identified. 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 5 in. (165.10 cm); Pain 5/10; 10:31 BP 121 / 65; Pulse 72; Resp 18; Temp 98.7(TE); Pulse Ox 97% on R/A; Pain 6/10; dem1 11:54 BP 117 / 65; Pulse 89; Resp 16; Temp 99.4(TE); Pulse Ox 96% on R/A; Pain 0/10; dem1 09:12 Body Mass Index 21.47 (58.51 kg, 165.10 cm) elp MDM: 09:55 IV Saline Lock ordered. cc10 10:06 ketorolac 30 mg IVP once ordered. cc10 10:19 Financial registration complete. lg 10:25 vancomycin (loading dose for pt. wt. 50-59kg) 1250 mg IVPB once ordered. cc10 11:41 [facility] Payment Agreement was scanned into [employer] and attached to record. lg 14:21 T-Sheet-- Draft Copy was scanned into [employer] and attached to record. gb Administered Medications: 10:11 Drug: ketorolac 30 mg [ketorolac 30 mg/mL (1 mL) injection solution (1 mL)] Route: IVP; [facility] Site: left forearm; 10:56 Follow up: Response: Pain is decreased [facility] 10:42 Drug: vancomycin (loading dose for pt. wt. 50-59kg) 1250 mg Route: IVPB; Site: left jmk forearm; 11:52 Follow up: IV Status: Completed infusion kr3 12:06 Follow up: IV Status: Completed infusion [facility] Signatures: Dispatcher [employer] EDMS Som Mcdonald, RN RN Collin Olivo RN RN Julissa Jones, Reg Reg gb Roddy Flores, Reg Reg lg Jayce Moore, PA-C PA-C cc10 Anjali Payton RN kr3 The chart was reviewed and I authenticate all verbal orders and agree with the evaluation and treatment provided.Corrections: (The following items were deleted from the chart) 09:58 09:56 CBC WITH DIFFERENTIAL+LAB ordered. EDMS EDMS 09:58 09:56 BASIC METABOLIC PROFILE+LAB ordered. EDMS EDMS Attachments: 11:41 [facility] Payment Agreement lg 14:21 T-Sheet-- Draft Copy gb Chart Complete MTDD
--- NOTE | 2016-12-11 13:09 | EDDOCDS ---
Nurse's Notes [facility] Name: Sintia Hirsch Age: 26 yrs Sex: Female : 1990 Arrival Date: 12/09/2016 Time: 09:10 Bed I2 / M2 Private MD: Chai Sanabria R. Diagnosis: Cutaneous abscess of face-recheck Presentation: 12/09 09:34 Presenting complaint: Patient states: has infected lower lip - had abcess opened during j night. was seen by ENT (Dr. Trotter) this am - sent back to ED for admission. no more drainage. Adult Sepsis Screening: The patient does not have new or worsening altered mentation. Patient's respiratory rate is less than 22. Systolic blood pressure is greater than 100. Patient has a qSOFA score of 0- Negative Sepsis Screen. Suicide/Homicide risk assessment- the patient denies having any suicidal and/or homicidal ideations and does not present with any other emotional, behavioral or mental health complaints. Status: Patient is not a manager administrative services or dependent. Transition of care: patient was not received from another setting of care. 09:34 Acuity: FREDIS Level 3 [facility] 09:34 Method Of Arrival: Walkin/Carried/Asstd [facility] Triage Assessment: 09:38 General: Appears in no apparent distress, comfortable, Behavior is cooperative. Pain: [facility] Location: mouth Pain currently is 5 out of 10 on a pain scale. HIV screening NA for this visit Offered previously. 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 naproxen 500 mg Oral tab 1 tab 2 times per day recently prescribed by [facility] 2. sulfamethoxazole-trimethoprim 800-160 mg Oral tab 1 tab every 12 hours - PMHx: scleroderma; - PSHx: retina reaatachment surgery - right eye; - Social history: Smoking status: Patient states was never smoker of tobacco. No barriers to communication noted, The patient speaks fluent Bangladeshi, Speaks appropriately for age. - Family history: Not pertinent. - : The pt / caregiver states he / she is not on anticoagulants. Home medication list is obtained from the patient. - Exposure Risk Screening:: None identified. Screenin:11 Screening information is obtained from the patient. Fall risk: No risks identified. jmk Assistance ADL's: requires no assistance with activities of daily living. Abuse/DV Screen: The patient / caregiver reports he/she is: not in a situation that causes fear, pain or injury. Nutritional screening: No deficits noted. Advance Directives: Currently, there is no health care proxy. There is no active DNR order. There is no living will. There is no Power of Rehabilitation Clerk. home support is adequate. Assessment: 10:11 General: Appears in no apparent distress, skin warm and dry color satisfactory. Moist jmk pink oral mucosa. lower lip swollen and protruding. denies nausea . reports pian level of 6/10 and medicated for same. 11:11 General: Appears states adequate pain control at 5/10. IV vanco infusing without event..jmk 11:41 General: Appears resting with eyes closed resp easy and regular. vanco nearing jmk completion. 12:06 General: Appears reports less pain. receptive to discharge. saline lock maintained and jmk instructed regarding care of same. secured additionally with pilar wrap.. Vital Signs: 09:12 BP 134 / 68; Pulse 86; Resp 18; Temp 97.9; Pulse Ox 99% ; Weight 58.51 kg; Height 5 ft. elp 5 in. (165.10 cm); Pain 5/10; 10:31 BP 121 / 65; Pulse 72; Resp 18; Temp 98.7(TE); Pulse Ox 97% on R/A; Pain 6/10; dem1 11:54 BP 117 / 65; Pulse 89; Resp 16; Temp 99.4(TE); Pulse Ox 96% on R/A; Pain 0/10; dem1 09:12 Body Mass Index 21.47 (58.51 kg, 165.10 cm) [facility] Vitals: 09:12 Log In Time: December 09, 2016 at 09:[address]. [facility] ED Course: 09:12 Patient visited by Angie Schwartz PCA. elp 09:12 Chai Sanabria is Private Physician. elp 09:12 Patient moved to Waiting elp 09:13 Patient visited by Angie Schwartz PCA. elp 09:13 Patient moved to Pre RCE elp 09:37 Triage Initiated bc 09:39 Patient visited by oSm Mcdonald RN. [facility] 09:45 Patient moved to Triage 2 dwg 09:47 Jayce Moore [facility]-C [facility] cc10 09:47 Lencho Arana MD is Attending Physician. cc10 09:51 Patient visited by Jayce Moore PA-C. cc10 09:51 Patient visited by Jayce Moore PA-C. cc10 09:55 Patient moved to I2 / M2 [facility] 10:06 Patient visited by Collin Barrera RN. k 10:11 The patient / caregiver is instructed regarding the plan of care and ED course. jmk 10:11 Inserted saline lock: 20 gauge in left forearm. jmk 10:14 Patient visited by Collin Barrera RN. jmk 10:32 Patient visited by Yvonne Rao. dem1 11:41 [facility] Payment Agreement was scanned into [employer] and attached to record. lg 11:42 Patient visited by Collin Barrera RN. jmk 11:54 Patient visited by Yvonne Rao. dem1 12:06 No procedures done that require assistance. jmk 14:21 T-Sheet-- Draft Copy was scanned into [employer] and attached to record. gb Administered Medications: 10:11 Drug: ketorolac 30 mg [ketorolac 30 mg/mL (1 mL) injection solution (1 mL)] Route: IVP; [facility] Site: left forearm; 10:56 Follow up: Response: Pain is decreased k 10:42 Drug: vancomycin (loading dose for pt. wt. 50-59kg) 1250 mg Route: IVPB; Site: left jmk forearm; 11:52 Follow up: IV Status: Completed infusion kr3 12:06 Follow up: IV Status: Completed infusion k Order Results: There are currently no results for this order. Outcome: 10:28 Discharge ordered by Provider. cc10 12:06 Discharge Assessment: Patient awake, alert and oriented x 3. No cognitive and/or k functional deficits noted. Patient verbalized understanding of disposition instructions. Patient patient administered narcotics - no. The following High Risk Discharge criteria are identified: None. Condition: good. No special radiology studies were completed. Property :Personal belongings accompany Pt. 12:08 Patient left the ED. k Signatures: Elvin Diaz RN RN dwg Johnson, Bruce, RN RN bcj Knapp, Jean,RN RN Julissa Jones, Reg Reg gb Roddy Flores, Reg Reg lg Anjali Payton,RN RN chau3 Yvonne Rao Erin, CIRA SUPERVISOR HOME ECONOMICS elp Oscar, Jayce, PA-C PA-C cc10 Chart Complete MTDD
== END 2016-12-09 12:08 | disposition home or self-care (01) ==
LOC: M ED 09:10
DX: K13.0 Diseases of lips (principal); M34.9 Systemic sclerosis, unspecified; Z79.1 Long term (current) use of non-steroidal anti-inflammatories (NSAID); Z79.2 Long term (current) use of antibiotics
CPT/HCPCS: 96374; 96375; 96376; 99283; J1885; J3370

== ENCOUNTER 2016-12-09 22:36 | Emergency (ER) | payer MEDICAID ==
[2016-12-09] MEDS ORDERED: ONDANSETRON 4MG/2ML VIAL (J2405) As Ordered ONE (23:15)
[2016-12-09] MEDS ORDERED: VANCOMYCIN 1000 MG/20 ML VIAL (J3370) As Ordered ONE (23:15)
[2016-12-09] MEDS ORDERED: MORPHINE 4 MG/ML 1ML SYRINGE As Ordered ONE (23:15)
[2016-12-10] MEDS ORDERED: MORPHINE 4 MG/ML 1ML SYRINGE As Ordered ONE (00:39)
--- NOTE | 2016-12-10 01:04 | EDDOCDS ---
Physician Documentation [facility] Name: Sintia Hirsch Age: 26 yrs Sex: Female : 1990 Arrival Date: 12/09/2016 Time: 22:36 Bed I4 / M4 Private MD: Chai Sanabria R. Disposition: 12/10/16 00:47 Discharged to Home/Self Care. Impression: Cutaneous abscess of head [any part, except face] - right lower lip. - Condition is Stable. - Discharge Instructions: Abscess, Incision and Drainage. - Prescriptions for [place] 5- 325 mg Oral Tablet - take 1 tablet by ORAL route every 6 hours As needed MDD: 4 tabs; 10 tablet. - Medication Reconciliation, Local Pharmacy Hours form. - Follow up: Chai Sanabria; When: Call to arrange an appointment; Reason: Recheck today's complaints, Continuance of care. Follow up: David Trotter; When: Call to arrange an appointment; Reason: Recheck today's complaints, Continuance of care. - Problem is new. - Symptoms are unchanged. - Notes: return tomorrow for re evaluation, contact dr trotter ENT for further instructions Historical: - Allergies: no known allergies; - Home Meds: 1. naproxen 500 mg Oral tab 1 tab 2 times per day recently prescribed by [facility] - PMHx: scleroderma; - PSHx: retina reaatachment surgery - right eye; - Social history: Smoking status: Patient states was never smoker of tobacco. No barriers to communication noted, Speaks appropriately for age. - Family history: Not pertinent. - : The pt / caregiver states he / she is not on anticoagulants. Home medication list is obtained from the patient. - Exposure Risk Screening:: None identified. 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 5 in. (165.10 cm) (R); 12/10 00:59 BP 130 / 70; Pulse 98; Resp 18; Temp 97.8(O); Pulse Ox 98% on R/A; Pain 0/10; jmb 12/09 22:37 Body Mass Index 21.63 (58.97 kg, 165.10 cm) dd6 MDM: 12/09 23:13 vancomycin 1 grams IVPB once over 60 mins; dilute in 250mL of NS or D5W ordered. mo1 23:13 Ondansetron 4 mg IVP once ordered. mo1 23:13 morphine 4 mg IVP once ordered. mo1 23:16 Wound Culture & GS - All Other Sources Ordered. EDIA 12/10 00:01 Financial registration complete. [facility] 00:20 morphine 4 mg IVP once ordered. mo1 00:41 [facility] [place] Agreement was scanned into [employer] and attached to record. [facility] Administered Medications: 12/09 23:23 Drug: vancomycin 1 grams [vancomycin 1,000 mg intravenous injection] Route: IVPB; b Infused Over: 60 mins; Site: left forearm; 23:23 Drug: Ondansetron 4 mg [ondansetron HCl 2 mg/mL intravenous solution (2 mL)] Route: jmb IVP; Site: left forearm; 23:23 Drug: morphine 4 mg [morphine 4 mg/mL intravenous cartridge (1 mL)] Route: IVP; Site: b left forearm; 12/10 00:42 Drug: morphine 4 mg [morphine 4 mg/mL intravenous cartridge (1 mL)] Route: IVP; Site: [facility] left forearm; Signatures: Dis[facility] Netta Padron RN RN rs3 Joe Merrill PA PA mo1 Marcos Cortez RN RN jmb Hook, Sandra [facility] The chart was reviewed and I authenticate all verbal orders and agree with the evaluation and treatment provided.Attachments: 00:41 [facility] [place] Agreement [facility] MTDD
--- NOTE | 2016-12-10 01:04 | EDDOCDS ---
Nurse's Notes [facility] Name: Sintia Hirsch Age: 26 yrs Sex: Female : 1990 Arrival Date: 12/09/2016 Time: 22:36 Bed I4 / M4 Private MD: Chai Sanabria R. Diagnosis: Cutaneous abscess of head [any part, except face]-right lower lip Presentation: 12/09 22:41 Presenting complaint: Patient states: here for IV antibiotic vancomycin. Adult Sepsis rs3 Screening: The patient does not have new or worsening altered mentation. Patient's respiratory rate is less than 22. Systolic blood pressure is greater than 100. Patient has a qSOFA score of 0- Negative Sepsis Screen. Suicide/Homicide risk assessment- the patient denies having any suicidal and/or homicidal ideations and does not present with any other emotional, behavioral or mental health complaints. Status: Patient is not a veterans service representative or dependent. Transition of care: patient was not received from another setting of care. 22:41 Acuity: FREDIS Level 4 rs3 22:41 Method Of Arrival: Walkin/Carried/Asstd rs3 Triage Assessment: 22:42 General: Appears in no apparent distress. Pain: Location: mouth. HIV screening NA for rs3 this visit Offered previously. 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 naproxen 500 mg Oral tab 1 tab 2 times per day recently prescribed by [facility] - PMHx: scleroderma; - PSHx: retina reaatachment surgery - right eye; - Social history: Smoking status: Patient states was never smoker of tobacco. No barriers to communication noted, Speaks appropriately for age. - Family history: Not pertinent. - : The pt / caregiver states he / she is not on anticoagulants. Home medication list is obtained from the patient. - Exposure Risk Screening:: None identified. Screenin:23 Screening information is obtained from the patient. Fall risk: No risks identified. jmb Assistance ADL's: requires no assistance with activities of daily living. Abuse/DV Screen: The patient / caregiver reports he/she is: not in a situation that causes fear, pain or injury. Nutritional screening: No deficits noted. home support is adequate. 12/10 00:59 Advance Directives: Currently, there is no health care proxy. There is no active DNR b order. There is no living will. There is no Power of Android Platform Developer. Assessment: 12/09 23:23 General: Appears in no apparent distress, comfortable, Behavior is appropriate for age, jmb cooperative. Pain: Location: mouth. Neurological: Level of Consciousness is awake, alert, obeys commands, Oriented to person, place, time, Analysis Director are equal bilaterally Speech is normal, Facial symmetry appears normal, Facial symmetry: tongue is midline. Cardiovascular: Capillary refill < 3 seconds Heart tones present Pulses are all present. Rhythm is regular. Respiratory: Airway is patent Respiratory effort is even, unlabored, Respiratory pattern is regular, symmetrical, Breath sounds are clear bilaterally. GI: Abdomen is non- distended Bowel sounds present X 4 quads. Abd is soft and non tender X 4 quads. Derm: Skin is pink, warm & dry. Musculoskeletal: Range of motion intact in all extremities. 12/10 00:04 General: Appears in no apparent distress, comfortable, Behavior is appropriate for age, jmb cooperative, Patient laying on stretcher texting on cell phone. No voiced complaints at this time. . Neurological: Level of Consciousness is awake, alert, obeys commands, Oriented to person, place, time. Respiratory: Airway is patent Respiratory effort is even, unlabored, Respiratory pattern is regular, symmetrical. 00:42 General: In to administer pain medication, patient laughing, giggling, and talking with b friends in room. During administration patient stated "I think I am gonna have that shady just cut my lip open again because when they numbed it that's all that helped with the pain". Patient continued to giggle at that time. . 00:59 General: Patient instructed on discharge instructions. Patient asked if there were any [facility] questions regarding discharge, patient stated no. IV discontinued per hospital policy. Patient signed discharge instructions. Patient discharged in stable condition. . Vital Signs: 12/09 22:37 BP 143 / 74; Pulse 107; Resp 18 S; Temp 98.0(T); Pulse Ox 100% on R/A; Weight 58.97 kg dd6 (R); Height 5 ft. 5 in. (165.10 cm) (R); 12/10 00:59 BP 130 / 70; Pulse 98; Resp 18; Temp 97.8(O); Pulse Ox 98% on R/A; Pain 0/10; jmb 12/09 22:37 Body Mass Index 21.63 (58.97 kg, 165.10 cm) dd6 Vitals: 12/09 22:37 Log In Time: December 09, 2016 at 22:35. dd6 ED Course: 22:37 Patient visited by Ramiro York PCA. dd6 22:37 Chai Sanabria is Private Physician. dd6 22:37 Patient moved to Waiting dd6 22:38 Patient moved to Pre RCE dd6 22:42 Triage Initiated rs3 22:44 Patient moved to I4 / M4 kmg1 22:55 Joe Merrill PA is PHCP. mo1 22:55 Sonu Hyde DO is Attending Physician. mo1 23:04 Patient visited by Joe Merrill PA. mo1 23:23 The patient / caregiver is instructed regarding the plan of care and ED course. jmb 23:23 Maintain field IV. Dressing intact. Good blood return noted. Site clean & dry. Gauge & jmb site: 20 gauge left forearm. 23:25 Patient visited by Marcos Cortez RN. jmb 23:25 Wound Culture & GS - All Other Sources Sent. cp1 23:40 Patient visited by Matilde Linton LPN. cp1 12/10 00:05 Patient visited by Marcos Cortez RN. jmb 00:34 Patient visited by Matilde Linton LPN. cp1 00:41 [facility] Payment Agreement was scanned into [employer] and attached to record. [facility] 00:43 Patient visited by Marcos Cortez RN. jmb 00:47 Chai Sanabria is Referral Physician. mo1 00:48 David Trotter is Referral Physician. mo1 00:59 Discontinued lock intact, bleeding controlled, pressure dressing applied, No jmb redness/swelling at site. No procedures done that require assistance. Administered Medications: 12/09 23:23 Drug: vancomycin 1 grams [vancomycin 1,000 mg intravenous injection] Route: IVPB; jmb Infused Over: 60 mins; Site: left forearm; 23:23 Drug: Ondansetron 4 mg [ondansetron HCl 2 mg/mL intravenous solution (2 mL)] Route: porsha IVP; Site: left forearm; 23:23 Drug: morphine 4 mg [morphine 4 mg/mL intravenous cartridge (1 mL)] Route: IVP; Site: [facility] left forearm; 12/10 00:42 Drug: morphine 4 mg [morphine 4 mg/mL intravenous cartridge (1 mL)] Route: IVP; Site: [facility] left forearm; Order Results: There are currently no results for this order. Outcome: 00:47 Discharge ordered by Provider. mo1 00:59 Discharge Assessment: Patient awake, alert and oriented x 3. No cognitive and/or jmb functional deficits noted. Patient verbalized understanding of disposition instructions. Patient awake and alert. obeys commands, Oriented to person, place and time. Patient verbalized understanding of disposition instructions. Patient has no functional deficits. patient administered narcotics - yes. Pt provided with safe discharge. The following High Risk Discharge criteria are identified: None. Discharged to home ambulatory. Condition: stable Condition: improved. Discharge instructions given to patient, Instructed on discharge instructions, follow up and referral plans. medication usage, Demonstrated understanding of Prescriptions given X 1. No special radiology studies were completed. Property sent home with patient. 01:03 Patient left the ED. [facility] Signatures: Ngozi Wells RN RN kmg1 Ramiro York, TETRYL NITRATOR OPERATOR TETRYL NITRATOR OPERATOR dd6 Netta Padron RN RN rs3 Matilde Linton,MACHINE MILKER MACHINE MILKER cp1 Joe Merrill PA PA mo1 Marcos Cortez RN RN jmb Hook, Sandra [facility] MTDD
--- NOTE | 2016-12-12 02:05 | EDDOCDS ---
Nurse's Notes [facility] Name: Sintia Hirsch Age: 26 yrs Sex: Female : 1990 Arrival Date: 12/09/2016 Time: 22:36 Bed I4 / M4 Private MD: Chai Sanarbia R. Diagnosis: Cutaneous abscess of head [any part, except face]-right lower lip Presentation: 12/09 22:41 Presenting complaint: Patient states: here for IV antibiotic vancomycin. Adult Sepsis rs3 Screening: The patient does not have new or worsening altered mentation. Patient's respiratory rate is less than 22. Systolic blood pressure is greater than 100. Patient has a qSOFA score of 0- Negative Sepsis Screen. Suicide/Homicide risk assessment- the patient denies having any suicidal and/or homicidal ideations and does not present with any other emotional, behavioral or mental health complaints. Status: Patient is not a clinical services manager or dependent. Transition of care: patient was not received from another setting of care. 22:41 Acuity: FREDIS Level 4 rs3 22:41 Method Of Arrival: Walkin/Carried/Asstd rs3 Triage Assessment: 22:42 General: Appears in no apparent distress. Pain: Location: mouth. HIV screening NA for rs3 this visit Offered previously. 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 naproxen 500 mg Oral tab 1 tab 2 times per day recently prescribed by [facility] - PMHx: scleroderma; - PSHx: retina reaatachment surgery - right eye; - Social history: Smoking status: Patient states was never smoker of tobacco. No barriers to communication noted, Speaks appropriately for age. - Family history: Not pertinent. - : The pt / caregiver states he / she is not on anticoagulants. Home medication list is obtained from the patient. - Exposure Risk Screening:: None identified. Screenin:23 Screening information is obtained from the patient. Fall risk: No risks identified. jmb Assistance ADL's: requires no assistance with activities of daily living. Abuse/DV Screen: The patient / caregiver reports he/she is: not in a situation that causes fear, pain or injury. Nutritional screening: No deficits noted. home support is adequate. 12/10 00:59 Advance Directives: Currently, there is no health care proxy. There is no active DNR b order. There is no living will. There is no Power of [employer]. Assessment: 12/09 23:23 General: Appears in no apparent distress, comfortable, Behavior is appropriate for age, jmb cooperative. Pain: Location: mouth. Neurological: Level of Consciousness is awake, alert, obeys commands, Oriented to person, place, time, Technology Consultant are equal bilaterally Speech is normal, Facial symmetry appears normal, Facial symmetry: tongue is midline. Cardiovascular: Capillary refill < 3 seconds Heart tones present Pulses are all present. Rhythm is regular. Respiratory: Airway is patent Respiratory effort is even, unlabored, Respiratory pattern is regular, symmetrical, Breath sounds are clear bilaterally. GI: Abdomen is non- distended Bowel sounds present X 4 quads. Abd is soft and non tender X 4 quads. Derm: Skin is pink, warm & dry. Musculoskeletal: Range of motion intact in all extremities. 12/10 00:04 General: Appears in no apparent distress, comfortable, Behavior is appropriate for age, jmb cooperative, Patient laying on stretcher texting on cell phone. No voiced complaints at this time. . Neurological: Level of Consciousness is awake, alert, obeys commands, Oriented to person, place, time. Respiratory: Airway is patent Respiratory effort is even, unlabored, Respiratory pattern is regular, symmetrical. 00:42 General: In to administer pain medication, patient laughing, giggling, and talking with b friends in room. During administration patient stated "I think I am gonna have that shady just cut my lip open again because when they numbed it that's all that helped with the pain". Patient continued to giggle at that time. . 00:59 General: Patient instructed on discharge instructions. Patient asked if there were any [facility] questions regarding discharge, patient stated no. IV discontinued per hospital policy. Patient signed discharge instructions. Patient discharged in stable condition. . Vital Signs: 12/09 22:37 BP 143 / 74; Pulse 107; Resp 18 S; Temp 98.0(T); Pulse Ox 100% on R/A; Weight 58.97 kg dd6 (R); Height 5 ft. 5 in. (165.10 cm) (R); 12/10 00:59 BP 130 / 70; Pulse 98; Resp 18; Temp 97.8(O); Pulse Ox 98% on R/A; Pain 0/10; jmb 12/09 22:37 Body Mass Index 21.63 (58.97 kg, 165.10 cm) dd6 Vitals: 12/09 22:37 Log In Time: December 09, 2016 at 22:35. dd6 ED Course: 22:37 Patient visited by Ramrio York PCA. dd6 22:37 Chai Sanabria is Private Physician. dd6 22:37 Patient moved to Waiting dd6 22:38 Patient moved to Pre RCE dd6 22:42 Triage Initiated rs3 22:44 Patient moved to I4 / M4 kmg1 22:55 Joe Merrill PA is PHCP. mo1 22:55 Sonu Hyde DO is Attending Physician. mo1 23:04 Patient visited by Joe Merrill PA. mo1 23:23 The patient / caregiver is instructed regarding the plan of care and ED course. jmb 23:23 Maintain field IV. Dressing intact. Good blood return noted. Site clean & dry. Gauge & jmb site: 20 gauge left forearm. 23:25 Patient visited by Marcos Cortez RN. jmb 23:25 Wound Culture & GS - All Other Sources Sent. cp1 23:40 Patient visited by Matilde Linton LPN. cp1 12/10 00:05 Patient visited by Marcos Cortez RN. jmb 00:34 Patient visited by Matilde Linton LPN. cp1 00:41 [facility] Payment Agreement was scanned into [employer] and attached to record. slh 00:43 Patient visited by Marcos Cortez RN. jmb 00:47 hCai Sanabria is Referral Physician. mo1 00:48 David Trotter is Referral Physician. mo1 00:59 Discontinued lock intact, bleeding controlled, pressure dressing applied, No jmb redness/swelling at site. No procedures done that require assistance. 10:47 T-Sheet-- Draft Copy was scanned into [employer] and attached to record. gb Administered Medications: 12/09 23:23 Drug: vancomycin 1 grams [vancomycin 1,000 mg intravenous injection] Route: IVPB; jmb Infused Over: 60 mins; Site: left forearm; 23:23 Drug: Ondansetron 4 mg [ondansetron HCl 2 mg/mL intravenous solution (2 mL)] Route: jmb IVP; Site: left forearm; 23:23 Drug: morphine 4 mg [morphine 4 mg/mL intravenous cartridge (1 mL)] Route: IVP; Site: b left forearm; 12/10 00:42 Drug: morphine 4 mg [morphine 4 mg/mL intravenous cartridge (1 mL)] Route: IVP; Site: b left forearm; Order Results: Lab Order: Wound Culture & GS - All Other Sources; SPEC'M 12/09/16 23:23 Test: GRAM STAIN; Value: GRAM STAIN RESULT; Status: F Test: GRAM STAIN; Value: FEW WBCS; Status: F Test: GRAM STAIN; Value: FEW GRAM POSITIVE COCCI IN CLUSTERS; Status: F Outcome: 00:47 Discharge ordered by Provider. mo1 00:59 Discharge Assessment: Patient awake, alert and oriented x 3. No cognitive and/or jmb functional deficits noted. Patient verbalized understanding of disposition instructions. Patient awake and alert. obeys commands, Oriented to person, place and time. Patient verbalized understanding of disposition instructions. Patient has no functional deficits. patient administered narcotics - yes. Pt provided with safe discharge. The following High Risk Discharge criteria are identified: None. Discharged to home ambulatory. Condition: stable Condition: improved. Discharge instructions given to patient, Instructed on discharge instructions, follow up and referral plans. medication usage, Demonstrated understanding of Prescriptions given X 1. No special radiology studies were completed. Property sent home with patient. 01:03 Patient left the ED. porsha Signatures: Ngozi Wells, RN RN kmg1 Julissa Lynch, Reg Reg gb Ramiro York, SOUND PRINTER SOUND PRINTER dd6 Netta Padron RN RN rs3 Matilde Linton,INSTRUCTOR PRIVATE INSTRUCTOR PRIVATE cp1 Joe Merrill PA PA mo1 Marcos Cortez RN RN jmb Hook, Sandra sl Chart Complete MTDD
--- NOTE | 2016-12-12 02:05 | EDDOCDS ---
Physician Documentation [facility] Name: Sintia Hirsch Age: 26 yrs Sex: Female : 1990 Arrival Date: 12/09/2016 Time: 22:36 Bed I4 / M4 Private MD: Chai Sanabria R. Disposition: 12/10/16 00:47 Discharged to Home/Self Care. Impression: Cutaneous abscess of head [any part, except face] - right lower lip. - Condition is Stable. - Discharge Instructions: Abscess, Incision and Drainage. - Prescriptions for [place] 5- 325 mg Oral Tablet - take 1 tablet by ORAL route every 6 hours As needed MDD: 4 tabs; 10 tablet. - Medication Reconciliation, Local Pharmacy Hours form. - Follow up: Chai Sanabria; When: Call to arrange an appointment; Reason: Recheck today's complaints, Continuance of care. Follow up: David Trotter; When: Call to arrange an appointment; Reason: Recheck today's complaints, Continuance of care. - Problem is new. - Symptoms are unchanged. - Notes: return tomorrow for re evaluation, contact dr trotter ENT for further instructions Historical: - Allergies: no known allergies; - Home Meds: 1. naproxen 500 mg Oral tab 1 tab 2 times per day recently prescribed by [facility] - PMHx: scleroderma; - PSHx: retina reaatachment surgery - right eye; - Social history: Smoking status: Patient states was never smoker of tobacco. No barriers to communication noted, Speaks appropriately for age. - Family history: Not pertinent. - : The pt / caregiver states he / she is not on anticoagulants. Home medication list is obtained from the patient. - Exposure Risk Screening:: None identified. 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 5 in. (165.10 cm) (R); 12/10 00:59 BP 130 / 70; Pulse 98; Resp 18; Temp 97.8(O); Pulse Ox 98% on R/A; Pain 0/10; jmb 12/09 22:37 Body Mass Index 21.63 (58.97 kg, 165.10 cm) dd6 MDM: 12/09 23:13 vancomycin 1 grams IVPB once over 60 mins; dilute in 250mL of NS or D5W ordered. mo1 23:13 Ondansetron 4 mg IVP once ordered. mo1 23:13 morphine 4 mg IVP once ordered. mo1 23:16 Wound Culture & GS - All Other Sources Ordered. EDLA 12/10 00:01 Financial registration complete. [facility] 00:20 morphine 4 mg IVP once ordered. mo1 00:41 [facility] Payment Agreement was scanned into [employer] and attached to record. [facility] :47 T-Sheet-- Draft Copy was scanned into [employer] and attached to record. gb Administered Medications: 12/09 23:23 Drug: vancomycin 1 grams [vancomycin 1,000 mg intravenous injection] Route: IVPB; jmb Infused Over: 60 mins; Site: left forearm; 23:23 Drug: Ondansetron 4 mg [ondansetron HCl 2 mg/mL intravenous solution (2 mL)] Route: jmb IVP; Site: left forearm; 23:23 Drug: morphine 4 mg [morphine 4 mg/mL intravenous cartridge (1 mL)] Route: IVP; Site: jmb left forearm; 12/10 00:42 Drug: morphine 4 mg [morphine 4 mg/mL intravenous cartridge (1 mL)] Route: IVP; Site: jmb left forearm; Signatures: Dispatcher [facility] ED[facility] Julissa Lynch, Reg Reg gb Netta Padron RN RN rs3 Joe Merrill PA PA mo1 Marcos Cortez RN RN jmb Hook, Sandra [facility] The chart was reviewed and I authenticate all verbal orders and agree with the evaluation and treatment provided.Attachments: 00:41 [facility] Payment Agreement [facility] 10:47 T-Sheet-- Draft Copy gb Chart Complete MTDD
--- NOTE | 2016-12-12 02:05 | EDDOCDS ---
Physician Documentation [facility] Name: Sintia Hirsch Age: 26 yrs Sex: Female : 1990 Arrival Date: 12/09/2016 Time: 22:36 Bed I4 / M4 Private MD: Chai Sanabria R. Disposition: 12/10/16 00:47 Discharged to Home/Self Care. Impression: Cutaneous abscess of head [any part, except face] - right lower lip. - Condition is Stable. - Discharge Instructions: Abscess, Incision and Drainage. - Prescriptions for [place] 5- 325 mg Oral Tablet - take 1 tablet by ORAL route every 6 hours As needed MDD: 4 tabs; 10 tablet. - Medication Reconciliation, Local Pharmacy Hours form. - Follow up: Chai Sanabria; When: Call to arrange an appointment; Reason: Recheck today's complaints, Continuance of care. Follow up: David Trotter; When: Call to arrange an appointment; Reason: Recheck today's complaints, Continuance of care. - Problem is new. - Symptoms are unchanged. - Notes: return tomorrow for re evaluation, contact dr trotter ENT for further instructions Historical: - Allergies: no known allergies; - Home Meds: 1. naproxen 500 mg Oral tab 1 tab 2 times per day recently prescribed by [facility] - PMHx: scleroderma; - PSHx: retina reaatachment surgery - right eye; - Social history: Smoking status: Patient states was never smoker of tobacco. No barriers to communication noted, Speaks appropriately for age. - Family history: Not pertinent. - : The pt / caregiver states he / she is not on anticoagulants. Home medication list is obtained from the patient. - Exposure Risk Screening:: None identified. 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 5 in. (165.10 cm) (R); 12/10 00:59 BP 130 / 70; Pulse 98; Resp 18; Temp 97.8(O); Pulse Ox 98% on R/A; Pain 0/10; jmb 12/09 22:37 Body Mass Index 21.63 (58.97 kg, 165.10 cm) dd6 MDM: 12/09 23:13 vancomycin 1 grams IVPB once over 60 mins; dilute in 250mL of NS or D5W ordered. mo1 23:13 Ondansetron 4 mg IVP once ordered. mo1 23:13 morphine 4 mg IVP once ordered. mo1 23:16 Wound Culture & GS - All Other Sources Ordered. EDMD 12/10 00:01 Financial registration complete. [facility] 00:20 morphine 4 mg IVP once ordered. mo1 00:41 [facility] Payment Agreement was scanned into [employer] [facility] [employer] and attached to record. [facility] :47 T-Sheet-- Draft Copy was scanned into [facility] and attached to record. gb Administered Medications: 12/09 23:23 Drug: vancomycin 1 grams [vancomycin 1,000 mg intravenous injection] Route: IVPB; jmb Infused Over: 60 mins; Site: left forearm; 23:23 Drug: Ondansetron 4 mg [ondansetron HCl 2 mg/mL intravenous solution (2 mL)] Route: jmb IVP; Site: left forearm; 23:23 Drug: morphine 4 mg [morphine 4 mg/mL intravenous cartridge (1 mL)] Route: IVP; Site: jmb left forearm; 12/10 00:42 Drug: morphine 4 mg [morphine 4 mg/mL intravenous cartridge (1 mL)] Route: IVP; Site: jmb left forearm; Signatures: [facility] Julissa Lynch, Reg Reg gb Netta Padron RN RN rs3 Joe Merrill PA PA mo1 Marcos Cortez RN RN jmb Hook, Sandra [facility] The chart was reviewed and I authenticate all verbal orders and agree with the evaluation and treatment provided.Attachments: 00:41 [facility] Payment Agreement [facility] 10:47 T-Sheet-- Draft Copy gb Chart Complete MTDD
== END 2016-12-10 01:03 | disposition home or self-care (01) ==
LOC: M ED 22:36
DX: K13.0 Diseases of lips (principal); M34.9 Systemic sclerosis, unspecified; Z79.1 Long term (current) use of non-steroidal anti-inflammatories (NSAID)
CPT/HCPCS: 87070; 87077; 87186; 87205; 96374; 96375; 96376; 99283; J1885; J2405; J3370

== ENCOUNTER → 2016-12-09 | Outpatient (REF) | payer MEDICAID | LOC: M LAB REF 13:08 | PROVIDERS: ATTEND Otolaryngology | DX: D48.5 Neoplasm of uncertain behavior of skin (principal) ==

== ENCOUNTER 2016-12-10 12:08 | Emergency (ER) | payer MEDICAID ==
[2016-12-10] MEDS ORDERED: VANCOMYCIN 1000 MG/20 ML VIAL (J3370) As Ordered ONE (12:34)
[2016-12-10] MEDS ORDERED: MORPHINE 4 MG/ML 1ML SYRINGE As Ordered ONE (12:36)
[2016-12-10] MEDS ORDERED: ONDANSETRON 4MG/2ML VIAL (J2405) As Ordered ONE (12:36)
--- NOTE | 2016-12-10 13:58 | EDDOCDS ---
Physician Documentation [facility] Name: Sintia Hirsch Age: 26 yrs Sex: Female : 1990 Arrival Date: 12/10/2016 Time: 12:08 Bed I5 / M5 Private MD: Chai Sanabria R. Disposition: 12/10/16 13:48 Discharged to Home/Self Care. Impression: Cutaneous abscess of face - Lower Lip, Recheck. - Condition is Stable. - Discharge Instructions: Abscess, Quaf-nl-Deir. - Medication Reconciliation, Local Pharmacy Hours form. - Follow up: Emergency Department; When: Today; Reason: Recheck today's complaints, Continuance of care. - Problem is new. - Symptoms have improved. Historical: - Allergies: no known allergies; - Home Meds: 1. [place] 5-325 mg Oral tab 1 tab every 4 hours (Last dose: 12/10/2016 09:00) - PMHx: scleroderma; - PSHx: retina reaatachment surgery - right eye; - Social history: Smoking status: Patient states was never smoker of tobacco. Patient uses marijuana, No barriers to communication noted. - Family history: Not pertinent. - : The pt / caregiver states he / she is not on anticoagulants. Home medication list is obtained from the patient. - Exposure Risk Screening:: None identified. 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 5 in. (165.10 cm) (R); Pain 5/10; 13:22 BP 108 / 61; Pulse 74; Resp 18; Temp 97.9; Pulse Ox 99% ; Pain 3/10; jam1 12:10 Body Mass Index 21.47 (58.51 kg, 165.10 cm) mt4 MDM: 12:29 IV Saline Lock ordered. ef1 12:29 vancomycin 1 grams IVPB once over 60 mins; dilute in 250mL of NS or D5W ordered. ef1 12:34 morphine 4 mg IVP once ordered. ef1 12:34 Ondansetron 4 mg IVP once ordered. ef1 12:52 Financial registration complete. lg Administered Medications: 12:47 Drug: vancomycin 1 grams [vancomycin 1,000 mg intravenous injection] Route: IVPB; dsf Infused Over: 60 mins; Site: left hand; 13:49 Follow up: IV Status: Completed infusion srm 12:47 Drug: morphine 4 mg [morphine 4 mg/mL intravenous cartridge (1 mL)] Route: IVP; Site: dsf left hand; 12:47 Drug: Ondansetron 4 mg [ondansetron HCl 2 mg/mL intravenous solution (2 mL)] Route: dsf IVP; Site: left hand; Signatures: Deb Camarillo, MITUL RN [facility] Roddy Flores, Kan [facility] Nicole East PA-C PA-C ef1 Estephanie Stone RN RN [facility] Kyara Ochoa RN dsf MTDD
--- NOTE | 2016-12-10 13:58 | EDDOCDS ---
Nurse's Notes [facility] Name: Sintia Hirsch Age: 26 yrs Sex: Female : 1990 Arrival Date: 12/10/2016 Time: 12:08 Bed I5 / M5 Private MD: Chai Sanabria R. Diagnosis: Cutaneous abscess of face-Lower Lip, Recheck Presentation: 12/10 12:20 Presenting complaint: Patient states: need to have recheck of abcess on lower lip, [facility] getting IV antibiotics here. Adult Sepsis Screening: The patient does not have new or worsening altered mentation. Patient's respiratory rate is less than 22. Systolic blood pressure is greater than 100. Patient has a qSOFA score of 0- Negative Sepsis Screen. Suicide/Homicide risk assessment- The patient reports that he/she has a prior history of suicide attempt and/or organized plan. 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 Transition of care: patient was not received from another setting of care. 12:20 Acuity: FREDIS Level 3 [facility] 12:20 Method Of Arrival: Walkin/Carried/Asstd [facility] Triage Assessment: 12:22 General: Appears in no apparent distress, comfortable, Behavior is appropriate for age, [facility] cooperative. Pain: Denies pain. HIV screening NA for this visit Offered previously. Derm: Swollen area noted on mouth. 12:22 Respiratory: No deficits noted. Airway is patent Respiratory effort is even, unlabored, [facility] Respiratory pattern is regular, symmetrical. 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 [place] 5-325 mg Oral tab 1 tab every 4 hours (Last dose: 12/10/2016 09:00) - PMHx: scleroderma; - PSHx: retina reaatachment surgery - right eye; - Social history: Smoking status: Patient states was never smoker of tobacco. Patient uses marijuana, No barriers to communication noted. - Family history: Not pertinent. - : The pt / caregiver states he / she is not on anticoagulants. Home medication list is obtained from the patient. - Exposure Risk Screening:: None identified. Screenin:24 Screening information is obtained from the patient. Fall risk: No risks identified. [facility] Assistance ADL's: requires no assistance with activities of daily living. Abuse/DV Screen: The patient / caregiver reports he/she is: not in a situation that causes fear, pain or injury. Nutritional screening: No deficits noted. Advance Directives: There is no active DNR order. home support is adequate. Assessment: 12:47 Adult Sepsis Screening: The patient does not have new or worsening altered mentation. dsf Patient's respiratory rate is less than 22. Systolic blood pressure is greater than 100. Patient has a qSOFA score of 0- Negative Sepsis Screen. General: Appears in no apparent distress, Behavior is appropriate for age, cooperative. Pain: Location: lower lip Pain currently is 5 out of 10 on a pain scale. Quality of pain is described as throbbing. Neurological: Level of Consciousness is awake, alert, Oriented to person, place, time. EENT: right side of lower lip swollen with a scabbed area . Cardiovascular: No deficits noted. Respiratory: No deficits noted. Derm: Skin is pink, warm & dry. 13:56 Reassessment: Patient appears in no apparent distress at this time. Patient states srm feeling better. General: Appears in no apparent distress, Behavior is appropriate for age, cooperative. EENT: swelling right lower lip. Respiratory: No deficits noted. GI: No deficits noted. Vital Signs: 12:10 BP 105 / 57 RA Sitting (auto/reg); Pulse 72 RA; Resp 18 S; Temp 97.2(T); Pulse Ox 100% mt4 on R/A; Weight 58.51 kg (R); Height 5 ft. 5 in. (165.10 cm) (R); Pain 5/10; 13:22 BP 108 / 61; Pulse 74; Resp 18; Temp 97.9; Pulse Ox 99% ; Pain 3/10; jam1 12:10 Body Mass Index 21.47 (58.51 kg, 165.10 cm) ia4 Vitals: 12:10 Log In Time: December 10, 2016 at 12:08. ia4 ED Course: 12:09 Patient visited by Izzy Randhawa. mt4 12:09 Patient moved to Waiting mt4 12:10 Chai Sanabria is Private Physician. mt4 12:12 Patient moved to Pre RCE mt4 12:21 Triage Initiated [facility] 12:26 Patient moved to / [facility] 12:27 [facility] ef1 12:27 Lencho Arana MD is Attending Physician. ef1 12:27 Patient visited by Nicole East PA-C. ef1 12:31 Pt greeted and oriented to ED. Patient advised of names of staff involved in care, jam1 location of call rico, wait times and NPO status. Patient has correct armband on for positive identification. Bed in low position. Call light in reach. Side rails up X 1. Door closed. 12:33 Inserted saline lock: 20 gauge in left hand The patient tolerated the procedure well. dsf 12:48 Patient visited by Kyara Ochoa RN. dsf 13:18 Patient visited by Nicole East PA-C. ef1 13:48 Patient visited by iNcole East PA-C. ef1 13:56 The patient / caregiver is instructed regarding the plan of care and ED course. srm 13:56 No procedures done that require assistance. srm Administered Medications: 12:47 Drug: vancomycin 1 grams [vancomycin 1,000 mg intravenous injection] Route: IVPB; dsf Infused Over: 60 mins; Site: left hand; 13:49 Follow up: IV Status: Completed infusion srm 12:47 Drug: morphine 4 mg [morphine 4 mg/mL intravenous cartridge (1 mL)] Route: IVP; Site: dsf left hand; 12:47 Drug: Ondansetron 4 mg [ondansetron HCl 2 mg/mL intravenous solution (2 mL)] Route: dsf IVP; Site: left hand; Order Results: There are currently no results for this order. Outcome: 13:48 Discharge ordered by Provider. ef1 13:56 Discharge Assessment: Patient awake, alert and oriented x 3. No cognitive and/or srm functional deficits noted. Patient verbalized understanding of disposition instructions. patient administered narcotics - yes. Pt provided with safe discharge. The following High Risk Discharge criteria are identified: None. Discharged to home ambulatory. Condition: good Condition: stable. Discharge instructions given to patient, Instructed on discharge instructions, follow up and referral plans. IV wrapped with pilar for infusion in 12 hours. No special radiology studies were completed. Property sent home with patient. 13:58 Patient left the ED. srm Signatures: Deb Camarillo RN RN Estephanie Reich, CIRA TRAWL NET MAKER jam1 Anjali Payton RN RN cahu3 Izzy Randhawa mt4 Nicole East, PAEllenC PAEllenC teresa1 Kyara Ochoa,RN RN yef Estephanie Stone,RN RN cjh YULIETD
--- NOTE | 2016-12-12 14:59 | EDDOCDS ---
Nurse's Notes [facility] Name: Sintia Hirsch Age: 26 yrs Sex: Female : 1990 Arrival Date: 12/10/2016 Time: 12:08 Bed I5 / M5 Private MD: Chai Sanabria R. Diagnosis: Cutaneous abscess of face-Lower Lip, Recheck Presentation: 12/10 12:20 Presenting complaint: Patient states: need to have recheck of abcess on lower lip, [facility] getting IV antibiotics here. Adult Sepsis Screening: The patient does not have new or worsening altered mentation. Patient's respiratory rate is less than 22. Systolic blood pressure is greater than 100. Patient has a qSOFA score of 0- Negative Sepsis Screen. Suicide/Homicide risk assessment- The patient reports that he/she has a prior history of suicide attempt and/or organized plan. 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 Transition of care: patient was not received from another setting of care. 12:20 Acuity: FREDIS Level 3 [facility] 12:20 Method Of Arrival: Walkin/Carried/Asstd [facility] Triage Assessment: 12:22 General: Appears in no apparent distress, comfortable, Behavior is appropriate for age, [facility] cooperative. Pain: Denies pain. HIV screening NA for this visit Offered previously. Derm: Swollen area noted on mouth. 12:22 Respiratory: No deficits noted. Airway is patent Respiratory effort is even, unlabored, [facility] Respiratory pattern is regular, symmetrical. 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 [place] 5-325 mg Oral tab 1 tab every 4 hours (Last dose: 12/10/2016 09:00) - PMHx: scleroderma; - PSHx: retina reaatachment surgery - right eye; - Social history: Smoking status: Patient states was never smoker of tobacco. Patient uses marijuana, No barriers to communication noted. - Family history: Not pertinent. - : The pt / caregiver states he / she is not on anticoagulants. Home medication list is obtained from the patient. - Exposure Risk Screening:: None identified. Screenin:24 Screening information is obtained from the patient. Fall risk: No risks identified. [facility] Assistance ADL's: requires no assistance with activities of daily living. Abuse/DV Screen: The patient / caregiver reports he/she is: not in a situation that causes fear, pain or injury. Nutritional screening: No deficits noted. Advance Directives: There is no active DNR order. home support is adequate. Assessment: 12:47 Adult Sepsis Screening: The patient does not have new or worsening altered mentation. dsf Patient's respiratory rate is less than 22. Systolic blood pressure is greater than 100. Patient has a qSOFA score of 0- Negative Sepsis Screen. General: Appears in no apparent distress, Behavior is appropriate for age, cooperative. Pain: Location: lower lip Pain currently is 5 out of 10 on a pain scale. Quality of pain is described as throbbing. Neurological: Level of Consciousness is awake, alert, Oriented to person, place, time. EENT: right side of lower lip swollen with a scabbed area . Cardiovascular: No deficits noted. Respiratory: No deficits noted. Derm: Skin is pink, warm & dry. 13:56 Reassessment: Patient appears in no apparent distress at this time. Patient states srm feeling better. General: Appears in no apparent distress, Behavior is appropriate for age, cooperative. EENT: swelling right lower lip. Respiratory: No deficits noted. GI: No deficits noted. Vital Signs: 12:10 BP 105 / 57 RA Sitting (auto/reg); Pulse 72 RA; Resp 18 S; Temp 97.2(T); Pulse Ox 100% mt4 on R/A; Weight 58.51 kg (R); Height 5 ft. 5 in. (165.10 cm) (R); Pain 5/10; 13:22 BP 108 / 61; Pulse 74; Resp 18; Temp 97.9; Pulse Ox 99% ; Pain 3/10; jam1 12:10 Body Mass Index 21.47 (58.51 kg, 165.10 cm) mn4 Vitals: 12:10 Log In Time: December 10, 2016 at 12:08. mn4 ED Course: 12:09 Patient visited by Izzy Randhawa. mt4 12:09 Patient moved to Waiting mt4 12:10 Chai Sanabria is Private Physician. mt4 12:12 Patient moved to Pre RCE mt4 12:21 Triage Initiated [facility] 12:26 Patient moved to / [facility] 12:27 [facility] ef1 12:27 Lencho Arana MD is Attending Physician. ef1 12:27 Patient visited by Nicole East PA-C. ef1 12:31 Pt greeted and oriented to ED. Patient advised of names of staff involved in care, jam1 location of call rico, wait times and NPO status. Patient has correct armband on for positive identification. Bed in low position. Call light in reach. Side rails up X 1. Door closed. 12:33 Inserted saline lock: 20 gauge in left hand The patient tolerated the procedure well. dsf 12:48 Patient visited by Kyara Ochoa RN. dsf 13:18 Patient visited by Nicole East PA-C. ef1 13:48 Patient visited by Nicole East PA-C. ef1 13:56 The patient / caregiver is instructed regarding the plan of care and ED course. srm 13:56 No procedures done that require assistance. srm 14:58 [facility] Payment Agreement was scanned into [employer] and attached to record. lg 15:52 T-Sheet-- Draft Copy was scanned into [employer] and attached to record. klr Administered Medications: 12:47 Drug: vancomycin 1 grams [vancomycin 1,000 mg intravenous injection] Route: IVPB; dsf Infused Over: 60 mins; Site: left hand; 13:49 Follow up: IV Status: Completed infusion srm 12:47 Drug: morphine 4 mg [morphine 4 mg/mL intravenous cartridge (1 mL)] Route: IVP; Site: dsf left hand; 12:47 Drug: Ondansetron 4 mg [ondansetron HCl 2 mg/mL intravenous solution (2 mL)] Route: dsf IVP; Site: left hand; Order Results: There are currently no results for this order. Outcome: 13:48 Discharge ordered by Provider. ef1 13:56 Discharge Assessment: Patient awake, alert and oriented x 3. No cognitive and/or srm functional deficits noted. Patient verbalized understanding of disposition instructions. patient administered narcotics - yes. Pt provided with safe discharge. The following High Risk Discharge criteria are identified: None. Discharged to home ambulatory. Condition: good Condition: stable. Discharge instructions given to patient, Instructed on discharge instructions, follow up and referral plans. IV wrapped with pilar for infusion in 12 hours. No special radiology studies were completed. Property sent home with patient. 13:58 Patient left the ED. srm Signatures: Deb Camarillo, RN RN srm Estephanie Boss, NURSING ASSISTANTS TEACHER NURSING ASSISTANTS TEACHER jam1 Roddy Flores Reg Reg lg Robie, Kathleen,MITUL RN kr3 Izzy Randhawa mn4 Nicole East, PA-C PA-C ef1 Kyara Ochoa RN RN dsf Hafner, Jane,Susan Palma RN Chart Complete MTDD
--- NOTE | 2016-12-12 14:59 | EDDOCDS ---
Physician Documentation [facility] Name: Sintia Hirsch Age: 26 yrs Sex: Female : 1990 Arrival Date: 12/10/2016 Time: 12:08 Bed I5 / M5 Private MD: Chai Sanabria R. Disposition: 12/10/16 13:48 Discharged to Home/Self Care. Impression: Cutaneous abscess of face - Lower Lip, Recheck. - Condition is Stable. - Discharge Instructions: Abscess, [id number]. - Medication Reconciliation, Local Pharmacy Hours form. - Follow up: Emergency Department; When: Today; Reason: Recheck today's complaints, Continuance of care. - Problem is new. - Symptoms have improved. Historical: - Allergies: no known allergies; - Home Meds: 1. [place] 5-325 mg Oral tab 1 tab every 4 hours (Last dose: 12/10/2016 09:00) - PMHx: scleroderma; - PSHx: retina reaatachment surgery - right eye; - Social history: Smoking status: Patient states was never smoker of tobacco. Patient uses marijuana, No barriers to communication noted. - Family history: Not pertinent. - : The pt / caregiver states he / she is not on anticoagulants. Home medication list is obtained from the patient. - Exposure Risk Screening:: None identified. 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 5 in. (165.10 cm) (R); Pain 5/10; 13:22 BP 108 / 61; Pulse 74; Resp 18; Temp 97.9; Pulse Ox 99% ; Pain 3/10; jam1 12:10 Body Mass Index 21.47 (58.51 kg, 165.10 cm) mt4 MDM: 12:29 IV Saline Lock ordered. ef1 12:29 vancomycin 1 grams IVPB once over 60 mins; dilute in 250mL of NS or D5W ordered. ef1 12:34 morphine 4 mg IVP once ordered. ef1 12:34 Ondansetron 4 mg IVP once ordered. ef1 12:52 Financial registration complete. lg 14:58 [facility] Payment Agreement was scanned into [employer] and attached to record. lg 15:52 T-Sheet-- Draft Copy was scanned into [employer] and attached to record. klr Administered Medications: 12:47 Drug: vancomycin 1 grams [vancomycin 1,000 mg intravenous injection] Route: IVPB; dsf Infused Over: 60 mins; Site: left hand; 13:49 Follow up: IV Status: Completed infusion srm 12:47 Drug: morphine 4 mg [morphine 4 mg/mL intravenous cartridge (1 mL)] Route: IVP; Site: dsf left hand; 12:47 Drug: Ondansetron 4 mg [ondansetron HCl 2 mg/mL intravenous solution (2 mL)] Route: dsf IVP; Site: left hand; Signatures: Deb Camarlilo RN RN srm Mark, Roddy, Reg Reg lg Nicole East, PA-C PA-C ef1 Estephanie Stone RN RN cjh Redder, Kathie klr Fuller, Desiree RN dsf The chart was reviewed and I authenticate all verbal orders and agree with the evaluation and treatment provided.Attachments: 14:58 [facility] Payment Agreement lg 15:52 T-Sheet-- Draft Copy klr Chart Complete MTDD
--- NOTE | 2016-12-12 14:59 | EDDOCDS ---
Physician Documentation [facility] Name: Sintia Hirsch Age: 26 yrs Sex: Female : 1990 Arrival Date: 12/10/2016 Time: 12:08 Bed I5 / M5 Private MD: Chai Sanabria R. Disposition: 12/10/16 13:48 Discharged to Home/Self Care. Impression: Cutaneous abscess of face - Lower Lip, Recheck. - Condition is Stable. - Discharge Instructions: Abscess, [id number]. - Medication Reconciliation, Local Pharmacy Hours form. - Follow up: Emergency Department; When: Today; Reason: Recheck today's complaints, Continuance of care. - Problem is new. - Symptoms have improved. Historical: - Allergies: no known allergies; - Home Meds: 1. [place] 5-325 mg Oral tab 1 tab every 4 hours (Last dose: 12/10/2016 09:00) - PMHx: scleroderma; - PSHx: retina reaatachment surgery - right eye; - Social history: Smoking status: Patient states was never smoker of tobacco. Patient uses marijuana, No barriers to communication noted. - Family history: Not pertinent. - : The pt / caregiver states he / she is not on anticoagulants. Home medication list is obtained from the patient. - Exposure Risk Screening:: None identified. 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 5 in. (165.10 cm) (R); Pain 5/10; 13:22 BP 108 / 61; Pulse 74; Resp 18; Temp 97.9; Pulse Ox 99% ; Pain 3/10; jam1 12:10 Body Mass Index 21.47 (58.51 kg, 165.10 cm) mt4 MDM: 12:29 IV Saline Lock ordered. ef1 12:29 vancomycin 1 grams IVPB once over 60 mins; dilute in 250mL of NS or D5W ordered. ef1 12:34 morphine 4 mg IVP once ordered. ef1 12:34 Ondansetron 4 mg IVP once ordered. ef1 12:52 Financial registration complete. lg 14:58 [facility] Payment Agreement was scanned into [employer] and attached to record. lg 15:52 T-Sheet-- Draft Copy was scanned into [employer] and attached to record. klr Administered Medications: 12:47 Drug: vancomycin 1 grams [vancomycin 1,000 mg intravenous injection] Route: IVPB; dsf Infused Over: 60 mins; Site: left hand; 13:49 Follow up: IV Status: Completed infusion srm 12:47 Drug: morphine 4 mg [morphine 4 mg/mL intravenous cartridge (1 mL)] Route: IVP; Site: dsf left hand; 12:47 Drug: Ondansetron 4 mg [ondansetron HCl 2 mg/mL intravenous solution (2 mL)] Route: dsf IVP; Site: left hand; Signatures: Deb Camarillo RN RN srm Mark, Roddy, Reg Reg lg Nicole East, PA-C PA-C ef1 Estephanie Stone RN RN cjh Redder, Kathie klr Fuller, Desiree RN dsf The chart was reviewed and I authenticate all verbal orders and agree with the evaluation and treatment provided.Attachments: 14:58 [facility] Payment Agreement lg 15:52 T-Sheet-- Draft Copy klr Chart Complete MTDD
== END 2016-12-10 13:58 | disposition home or self-care (01) ==
LOC: M ED 12:08
DX: K13.0 Diseases of lips (principal); M34.9 Systemic sclerosis, unspecified
CPT/HCPCS: 96365; 96375; 99283; J2405; J3370

== ENCOUNTER 2016-12-11 00:04 | Emergency (ER) | payer MEDICAID ==
[2016-12-11] MEDS ORDERED: CEFTAROLINE FOSAMIL 600 MG VIAL (TEFLARO) As Ordered ONE (00:36)
[2016-12-11 01:02] LABS: BASO % 0.5 % (0.0-1.0); EOS # 0.1 K/mm3 (0.0-0.50); LARGE UNSTAINED CELL # 0.1 K/mm3 (0.0-0.4); LARGE UNSTAINED CELL % 1.7 % (0.0-4.0); LYMPH # 2.3 K/mm3 (1.5-6.5); LYMPH % 33.9 % (24.0-44.0); MEAN CORPUSCULAR HEMOGLOBIN 31.1 pg (27.0-33.0); MEAN CORPUSCULAR HGB CONC 34.2 g/dl (32.0-36.5); MEAN CORPUSCULAR VOLUME 90.9 fl (80.0-96.0); MONO # 0.4 K/mm3 (0.0-0.8); MONO % 5.2 % (0.0-5.0); NEUTROPHILS # 3.9 K/mm3 (1.8-7.7); NEUTROPHILS % 56.7 % (36.0-66.0); PLATELET COUNT, AUTOMATED 159 k/mm3 (150-450); RED CELL DISTRIBUTION WIDTH 12.5 % (11.5-14.5); WHITE BLOOD COUNT 6.9 K/mm3 (4.0-10.0)
[2016-12-11 01:24] LABS: ANION GAP 5 MEQ/L (8-16); BLOOD UREA NITROGEN 15 MG/DL (7-18); CALCIUM LEVEL 8.2 MG/DL (8.5-10.1); CARBON DIOXIDE LEVEL 29 MEQ/L (21-32); CHLORIDE LEVEL 109 MEQ/L (98-107); CREATININE FOR GFR 0.92 MG/DL (0.55-1.02); GLOMERULAR FILTRATION RATE > 60.0 (>60); GLUCOSE, FASTING 84 MG/DL (70-105); POTASSIUM SERUM 4.6 MEQ/L (3.5-5.1); SODIUM LEVEL 143 MEQ/L (136-145)
--- NOTE | 2016-12-11 01:43 | EDDOCDS ---
Nurse's Notes [facility] Name: Sintia Hirsch Age: 26 yrs Sex: Female : 1990 Arrival Date: 12/11/2016 Time: 00:04 Bed I7 / 29 Private MD: Diagnosis: Cellulitis and abscess of mouth-right lower lip Presentation: 12/11 00:16 Presenting complaint: Patient states: Here for repeat dose of vancomycin. [place] [facility]:. Suicide/Homicide risk assessment- the patient denies having any suicidal and/or homicidal ideations and does not present with any other emotional, behavioral or mental health complaints. Status: Patient is not a student services counselor or dependent. Transition of care: patient was not received from another setting of care. 00:16 Acuity: [place]EDIS Level 4 [facility] [place]:16 Method Of Arrival: Walkin/Carried[place]std [facility] 01:41 Adult Sepsis Screening: The patient does not have new or worsening altered mentation. ld5 Patient's respiratory rate is less than 22. Systolic blood pressure is greater than 100. Patient has a qSOFA score of 0- Negative Sepsis Screen. Triage Assessment: 00:17 General: Appears in no apparent distress, comfortable, Behavior is appropriate for age, kmg1 cooperative, pleasant. Pain: Location: right corner of mouth Pain currently is 6 out of 10 on a pain scale. Quality of pain is described as throbbing. HIV screening NA for this visit Offered previously. EENT: Lip swollen. 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 naproxen 500 mg Oral tab 1 tab 2 times per day recently prescribed by [facility] 2. [place] 5-325 mg Oral tab 1 tab every 4 hours (Last dose: 12/10/2016 20:00) - PMHx: scleroderma; - PSHx: retina reaatachment surgery - right eye; - Social history: Smoking status: Patient states was never smoker of tobacco. No barriers to communication noted, The patient speaks fluent German, Speaks appropriately for age. - Family history: Not pertinent. - : The pt / caregiver states he / she is not on anticoagulants. Home medication list is obtained from the patient, [employer] import data. - Exposure Risk Screening:: None identified. Screenin:40 Screening information is obtained from the patient. Fall risk: No risks identified. ld5 Assistance ADL's: requires no assistance with activities of daily living. Abuse/DV Screen: The patient / caregiver reports he/she is: not in a situation that causes fear, pain or injury. Nutritional screening: No deficits noted. Advance Directives: There is no active DNR order. home support is adequate. Assessment: 00:50 General: Appears in no apparent distress, Behavior is appropriate for age, cooperative. ld5 Pain: Location: right corner of mouth. Neurological: Level of Consciousness is awake, alert. Respiratory: Airway is patent Respiratory effort is even, unlabored. Derm: Abscess located on right corner of mouth. 01:21 General: Pt resting comfortably in bed. No apparent distress. Will continue to monitor. ld5 01:40 General: Appears in no apparent distress, Behavior is cooperative. Pain: Location: ld5 right corner of mouth. Neurological: Level of Consciousness is awake, alert. Respiratory: Airway is patent Respiratory effort is even, unlabored. Vital Signs: 00:21 BP 119 / 66; Pulse 79; Resp 16; Temp 97.7(TE); Pulse Ox 97% on R/A; Pain 6/10; rw1 01:37 BP 117 / 59; Pulse 70; Resp 18; Temp 98.2(TE); Pulse Ox 97% on R/A; Pain 0/10; kb5 00:21 c/o pain in lip rw1 Vitals: 00:17 Log In Time: December 10, 2016 at 23:50. [facility] Course: 00:05 Patient visited by Brenda Ch. gjb 00:05 Patient moved to Waiting gjb 00:17 Triage Initiated kmg1 00:20 Patient moved to I / km 00:21 Joe Merrill PA is PHCP. mo1 00:21 Sonu Hyde DO is Attending Physician. mo1 00:[address] from earlier visit, 20 gauge in Left hand no redness noted. rw1 00:32 Patient visited by Joe Merrill PA. mo1 00:46 BMP Sent. rw1 00:46 CBC with Diff Sent. rw1 00:48 Patient visited by Lizz Olivares,MITUL. ld5 01:20 Patient visited by Lizz Olivares RN. ld5 01:22 Patient visited by Lizz Olivares RN. ld5 01:32 David Trotter is Referral Physician. mo1 01:37 Patient visited by Tip Schreiber PCA. kb5 01:40 The patient / caregiver is instructed regarding the plan of care and ED course. Patient ld5 has correct armband on for positive identification. 01:40 Discontinued lock intact, bleeding controlled, pressure dressing applied, No ld5 redness/swelling at site. No procedures done that require assistance. 01:42 Patient visited by Lizz Olivares RN. ld5 Administered Medications: 00:47 Drug: Ceftaroline Fosamil 600 mg [ceftaroline fosamil 600 mg intravenous solution] ld5 Route: IV; Rate: 1 calculated rate; Infused Over: 30 mins; Site: left hand; 01:40 Follow up: IV Status: Completed infusion; IV Intake: 50ml ld5 Intake: 01:40 IV: 50.00ml; Total: 50.00ml. ld5 Order Results: Lab Order: CBC with Diff; SPEC'M 12/11/16 00:45 Test: WHITE BLOOD COUNT; Value: 6.9; Range: 4.0-10.0; Units: K/mm3; Status: F Test: RED BLOOD COUNT; Value: 4.03; Range: 4.00-5.40; Units: M/mm3; Status: F Test: HEMOGLOBIN; Value: 12.5; Range: 12.0-16.0; Units: g/dl; Status: F Test: HEMATOCRIT; Value: 36.6; Range: 36.0-47.0; Units: %; Status: F Test: MEAN CORPUSCULAR VOLUME; Value: 90.9; Range: 80.0-96.0; Units: fl; Status: F Test: MEAN CORPUSCULAR HEMOGLOBIN; Value: 31.1; Range: 27.0-33.0; Units: pg; Status: F Test: MEAN CORPUSCULAR HGB CONC; Value: 34.2; Range: 32.0-36.5; Units: g/dl; Status: F Test: RED CELL DISTRIBUTION WIDTH; Value: 12.5; Range: 11.5-14.5; Units: %; Status: F Test: PLATELET COUNT, AUTOMATED; Value: 159; Range: 150-450; Units: k/mm3; Status: F Test: NEUTROPHILS %; Value: 56.7; Range: 36.0-66.0; Units: %; Status: F Test: LYMPH %; Value: 33.9; Range: 24.0-44.0; Units: %; Status: F Test: MONO %; Value: 5.2; Range: 0.0-5.0; Abnormal: Above high normal; Units: %; Status: F Test: EOS %; Value: 2.0; Range: 0.0-3.0; Units: %; Status: F Test: BASO %; Value: 0.5; Range: 0.0-1.0; Units: %; Status: F Test: LARGE UNSTAINED CELL %; Value: 1.7; Range: 0.0-4.0; Units: %; Status: F Test: NEUTROPHILS #; Value: 3.9; Range: 1.8-7.7; Units: K/mm3; Status: F Test: LYMPH #; Value: 2.3; Range: 1.5-6.5; Units: K/mm3; Status: F Test: MONO #; Value: 0.4; Range: 0.0-0.8; Units: K/mm3; Status: F Test: EOS #; Value: 0.1; Range: 0.0-0.50; Units: K/mm3; Status: F Test: BASO #; Value: 0.0; Range: 0.0-0.2; Units: K/mm3; Status: F Test: LARGE UNSTAINED CELL #; Value: 0.1; Range: 0.0-0.4; Units: K/mm3; Status: F Lab Order: [facility]; SPEC'M 12/11/16 00:45 Test: GLUCOSE, FASTING; Value: 84; Range: 70-105; Units: MG/DL; Status: F Test: BLOOD UREA NITROGEN; Value: 15; Range: 7-18; Units: MG/DL; Status: F Test: CREATININE FOR GFR; Value: 0.92; Range: 0.55-1.02; Units: MG/DL; Status: F Test: GLOMERULAR FILTRATION RATE; Value: > 60.0; Range: >60; Status: F Test: SODIUM LEVEL; Value: 143; Range: 136-145; Units: MEQ/L; Status: F Test: POTASSIUM SERUM; Value: 4.6; Range: 3.5-5.1; Abnormal: Delta; Units: MEQ/L; Status: F Test: CHLORIDE LEVEL; Value: 109; Range: 98-107; Abnormal: Above high normal; Units: MEQ/L; Status: F Test: CARBON DIOXIDE LEVEL; Value: 29; Range: 21-32; Units: MEQ/L; Status: F Test: ANION GAP; Value: 5; Range: 8-16; Abnormal: Below low normal; Units: MEQ/L; Status: F Test: CALCIUM LEVEL; Value: 8.2; Range: 8.5-10.1; Abnormal: Below low normal; Units: MG/DL; Status: F Test Note: ; Units are mL/min/1.73 m2 Chronic Kidney Disease Staging per NKF: Stage I & II GFR >=60 Normal to Mildly Decreased Stage III GFR 30-59 Moderately Decreased Stage IV GFR 15-29 Severely Decreased Stage V GFR <15 Very Little GFR Left ESRD GFR <15 on DRUG SAFETY ASSOCIATE Outcome: 01:32 Discharge ordered by Provider. mo1 01:40 Discharge Assessment: Patient awake, alert and oriented x 3. No cognitive and/or ld5 functional deficits noted. Patient verbalized understanding of disposition instructions. patient administered narcotics - no. The following High Risk Discharge criteria are identified: None. Discharged to home ambulatory. Condition: stable. Discharge instructions given to patient, Instructed on discharge instructions, follow up and referral plans. medication usage, Demonstrated understanding of instructions, medications, Pt was receptive of discharge instructions/ teaching. Prescriptions given X 1, Work note provided to patient. No special radiology studies were completed. Property :Personal belongings accompany Pt. 01:42 Patient left the ED. ld5 Signatures: Ngozi Wells RN RN kmg1 Albino Lloyd LPN LPN rw1 Tpi Schreiber, CIRA BIODIESEL DIVISION MANAGER kb5 Lizz Olivares RN RN ld5 Joe Merrill PA PA mo1 Brenda Ch MTDD
--- NOTE | 2016-12-11 01:43 | EDDOCDS ---
Physician Documentation [facility] Name: Sintia Hirsch Age: 26 yrs Sex: Female : 1990 Arrival Date: 12/11/2016 Time: 00:04 Bed I7 / 29 Private MD: Disposition: 12/11/16 01:32 Discharged to Home/Self Care. Impression: Cellulitis and abscess of mouth - right lower lip. - Condition is Stable. - Discharge Instructions: Abscess, Cellulitis. - Prescriptions for Clindamycin HCl 300 mg Oral Capsule - take 1 capsule by ORAL route every 6 hours; 40 capsule. - Medication Reconciliation, Work Release Form - 2 day, Local Pharmacy Hours form. - Follow up: David Trotter; When: Call to arrange an appointment; Reason: Recheck today's complaints, Continuance of care. - Problem is new. - Symptoms have improved. Historical: - Allergies: No known drug Allergies; - Home Meds: 1. naproxen 500 mg Oral tab 1 tab 2 times per day recently prescribed by [facility] 2. [place] 5-325 mg Oral tab 1 tab every 4 hours (Last dose: 12/10/2016 20:00) - PMHx: scleroderma; - PSHx: retina reaatachment surgery - right eye; - Social history: Smoking status: Patient states was never smoker of tobacco. No barriers to communication noted, The patient speaks fluent Swazi, Speaks appropriately for age. - Family history: Not pertinent. - : The pt / caregiver states he / she is not on anticoagulants. Home medication list is obtained from the patient, [employer] import data. - Exposure Risk Screening:: None identified. 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 00:35 CBC with Diff Ordered. EDMS 00:35 BMP Ordered. EDMS 00:59 [facility] 01:20 CBC with Diff Reviewed. mo1 01:27 BMP Reviewed. mo1 Administered Medications: 00:47 Drug: Ceftaroline Fosamil 600 mg [ceftaroline fosamil 600 mg intravenous solution] ld5 Route: IV; Rate: 1 calculated rate; Infused Over: 30 mins; Site: left hand; 01:40 Follow up: IV Status: Completed infusion; IV Intake: 50ml ld5 Signatures: Dispatcher [employer] EDMS Ngozi Wells RN RN kmg1 Albino Lloyd LPN LAWN MOWER OPERATOR rw1 Lizz Olivares RN RN ld5 Joe Merrill PA PA mo1 Marcela Beyer [facility] MTDD
--- NOTE | 2016-12-13 02:42 | EDDOCDS ---
Physician Documentation [facility] Name: Sintia Hirsch Age: 26 yrs Sex: Female : 1990 Arrival Date: 12/11/2016 Time: 00:04 Bed I7 / 29 Private MD: Disposition: 12/11/16 01:32 Discharged to Home/Self Care. Impression: Cellulitis and abscess of mouth - right lower lip. - Condition is Stable. - Discharge Instructions: Abscess, Cellulitis. - Prescriptions for Clindamycin HCl 300 mg Oral Capsule - take 1 capsule by ORAL route every 6 hours; 40 capsule. - Medication Reconciliation, Work Release Form - 2 day, Local Pharmacy Hours form. - Follow up: David Trotter; When: Call to arrange an appointment; Reason: Recheck today's complaints, Continuance of care. - Problem is new. - Symptoms have improved. Historical: - Allergies: No known drug Allergies; - Home Meds: 1. naproxen 500 mg Oral tab 1 tab 2 times per day recently prescribed by [facility] 2. [place] 5-325 mg Oral tab 1 tab every 4 hours (Last dose: 12/10/2016 20:00) - PMHx: scleroderma; - PSHx: retina reaatachment surgery - right eye; - Social history: Smoking status: Patient states was never smoker of tobacco. No barriers to communication noted, The patient speaks fluent Thai, Speaks appropriately for age. - Family history: Not pertinent. - : The pt / caregiver states he / she is not on anticoagulants. Home medication list is obtained from the patient, [employer] import data. - Exposure Risk Screening:: None identified. 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 00:35 CBC with Diff Ordered. EDMS 00:35 BMP Ordered. EDMS 00:59 Financial registration complete. h 01:20 CBC with Diff Reviewed. mo1 01:27 BMP Reviewed. mo1 01:44 [facility] Payment Agreement was scanned into [employer] and attached to record. [facility] 13:52 T-Sheet-- Draft Copy was scanned into [employer] and attached to record. kf3 Administered Medications: 00:47 Drug: Ceftaroline Fosamil 600 mg [ceftaroline fosamil 600 mg intravenous solution] ld5 Route: IV; Rate: 1 calculated rate; Infused Over: 30 mins; Site: left hand; 01:40 Follow up: IV Status: Completed infusion; IV Intake: 50ml ld5 Signatures: Dispatcher [employer] EDMS Ngozi Wells, RN RN kmg1 Albino Lloyd,DINKEY MECHANIC DINKEY MECHANIC rw1 Judah Frost, Reg Reg kf3 Lizz Olivares RN RN ld5 Joe Merrill PA PA mo1 Marcela Beyer [facility] The chart was reviewed and I authenticate all verbal orders and agree with the evaluation and treatment provided.Attachments: 01:44 [facility] Payment Agreement [facility] 13:52 T-Sheet-- Draft Copy kf3 Chart Complete MTDD
--- NOTE | 2016-12-13 02:42 | EDDOCDS ---
Physician Documentation [facility] Name: Sintia Hirsch Age: 26 yrs Sex: Female : 1990 Arrival Date: 12/11/2016 Time: 00:04 Bed I7 / 29 Private MD: Disposition: 12/11/16 01:32 Discharged to Home/Self Care. Impression: Cellulitis and abscess of mouth - right lower lip. - Condition is Stable. - Discharge Instructions: Abscess, Cellulitis. - Prescriptions for Clindamycin HCl 300 mg Oral Capsule - take 1 capsule by ORAL route every 6 hours; 40 capsule. - Medication Reconciliation, Work Release Form - 2 day, Local Pharmacy Hours form. - Follow up: David Trotter; When: Call to arrange an appointment; Reason: Recheck today's complaints, Continuance of care. - Problem is new. - Symptoms have improved. Historical: - Allergies: No known drug Allergies; - Home Meds: 1. naproxen 500 mg Oral tab 1 tab 2 times per day recently prescribed by [facility] 2. [place] 5-325 mg Oral tab 1 tab every 4 hours (Last dose: 12/10/2016 20:00) - PMHx: scleroderma; - PSHx: retina reaatachment surgery - right eye; - Social history: Smoking status: Patient states was never smoker of tobacco. No barriers to communication noted, The patient speaks fluent Luxembourger, Speaks appropriately for age. - Family history: Not pertinent. - : The pt / caregiver states he / she is not on anticoagulants. Home medication list is obtained from the patient, [employer] import data. - Exposure Risk Screening:: None identified. 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 00:35 CBC with Diff Ordered. EDMS 00:35 BMP Ordered. EDMS 00:59 Financial registration complete. h 01:20 CBC with Diff Reviewed. mo1 01:27 BMP Reviewed. mo1 01:44 [facility] Payment Agreement was scanned into [employer] and attached to record. [facility] 13:52 T-Sheet-- Draft Copy was scanned into [employer] and attached to record. kf3 Administered Medications: 00:47 Drug: Ceftaroline Fosamil 600 mg [ceftaroline fosamil 600 mg intravenous solution] ld5 Route: IV; Rate: 1 calculated rate; Infused Over: 30 mins; Site: left hand; 01:40 Follow up: IV Status: Completed infusion; IV Intake: 50ml ld5 Signatures: Dispatcher [employer] EDMS Ngozi Wells, RN RN kmg1 Albino Lloyd,NURSING CLERK NURSING CLERK rw1 Judah Frost, Reg Reg kf3 Lizz Olivares RN RN ld5 Joe Merrill PA PA mo1 Marcela Beyer [facility] The chart was reviewed and I authenticate all verbal orders and agree with the evaluation and treatment provided.Attachments: 01:44 [facility] Payment Agreement [facility] 13:52 T-Sheet-- Draft Copy kf3 Chart Complete MTDD
--- NOTE | 2016-12-13 02:42 | EDDOCDS ---
Nurse's Notes [facility] Name: Sintia Hirsch Age: 26 yrs Sex: Female : 1990 Arrival Date: 12/11/2016 Time: 00:04 Bed I7 / 29 Private MD: Diagnosis: Cellulitis and abscess of mouth-right lower lip Presentation: 12/11 00:16 Presenting complaint: Patient states: Here for repeat dose of vancomycin. Adult Sepsis [facility] Screening:. Suicide/Homicide risk assessment- the patient denies having any suicidal and/or homicidal ideations and does not present with any other emotional, behavioral or mental health complaints. 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 Transition of care: patient was not received from another setting of care. 00:16 Acuity: FREDIS Level 4 [facility] 00:16 Method Of Arrival: Walkin/Carried/Asstd [facility] 01:41 Adult Sepsis Screening: The patient does not have new or worsening altered mentation. ld5 Patient's respiratory rate is less than 22. Systolic blood pressure is greater than 100. Patient has a qSOFA score of 0- Negative Sepsis Screen. Triage Assessment: 00:17 General: Appears in no apparent distress, comfortable, Behavior is appropriate for age, kmg1 cooperative, pleasant. Pain: Location: right corner of mouth Pain currently is 6 out of 10 on a pain scale. Quality of pain is described as throbbing. HIV screening NA for this visit Offered previously. EENT: Lip swollen. 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 naproxen 500 mg Oral tab 1 tab 2 times per day recently prescribed by [facility] 2. [place] 5-325 mg Oral tab 1 tab every 4 hours (Last dose: 12/10/2016 20:00) - PMHx: scleroderma; - PSHx: retina reaatachment surgery - right eye; - Social history: Smoking status: Patient states was never smoker of tobacco. No barriers to communication noted, The patient speaks fluent Albanian, Speaks appropriately for age. - Family history: Not pertinent. - : The pt / caregiver states he / she is not on anticoagulants. Home medication list is obtained from the patient, [employer] import data. - Exposure Risk Screening:: None identified. Screenin:40 Screening information is obtained from the patient. Fall risk: No risks identified. ld5 Assistance ADL's: requires no assistance with activities of daily living. Abuse/DV Screen: The patient / caregiver reports he/she is: not in a situation that causes fear, pain or injury. Nutritional screening: No deficits noted. Advance Directives: There is no active DNR order. home support is adequate. Assessment: 00:50 General: Appears in no apparent distress, Behavior is appropriate for age, cooperative. ld5 Pain: Location: right corner of mouth. Neurological: Level of Consciousness is awake, alert. Respiratory: Airway is patent Respiratory effort is even, unlabored. Derm: Abscess located on right corner of mouth. 01:21 General: Pt resting comfortably in bed. No apparent distress. Will continue to monitor. ld5 01:40 General: Appears in no apparent distress, Behavior is cooperative. Pain: Location: ld5 right corner of mouth. Neurological: Level of Consciousness is awake, alert. Respiratory: Airway is patent Respiratory effort is even, unlabored. Vital Signs: 00:21 BP 119 / 66; Pulse 79; Resp 16; Temp 97.7(TE); Pulse Ox 97% on R/A; Pain 6/10; rw1 01:37 BP 117 / 59; Pulse 70; Resp 18; Temp 98.2(TE); Pulse Ox 97% on R/A; Pain 0/10; kb5 00:21 c/o pain in lip rw1 Vitals: 00:17 Log In Time: December 10, 2016 at 23:50. [facility] ED Course: 00:05 Patient visited by Brenda Ch. gjb 00:05 Patient moved to Waiting gjb 00:17 Triage Initiated kmg1 00:20 Patient moved to I / km 00:21 Joe Merrill PA is PHCP. mo1 00:21 Sonu Hyde DO is Attending Physician. mo1 00:[address] from earlier visit, 20 gauge in Left hand no redness noted. rw1 00:32 Patient visited by Joe Merrill PA. mo1 00:46 BMP Sent. rw1 00:46 CBC with Diff Sent. rw1 00:48 Patient visited by Lizz Olivares,MITUL. ld5 01:20 Patient visited by Lizz Olivares RN. ld5 01:22 Patient visited by Lizz Olivares RN. ld5 01:32 David Trotter is Referral Physician. mo1 01:37 Patient visited by Tip Schreiber PCA. kb5 01:40 The patient / caregiver is instructed regarding the plan of care and ED course. Patient ld5 has correct armband on for positive identification. 01:40 Discontinued lock intact, bleeding controlled, pressure dressing applied, No ld5 redness/swelling at site. No procedures done that require assistance. 01:42 Patient visited by Lizz Olivares RN. ld5 01:44 [facility] Payment Agreement was scanned into [employer] and attached to record. [facility] 13:52 T-Sheet-- Draft Copy was scanned into [employer] and attached to record. kf3 Administered Medications: 00:47 Drug: Ceftaroline Fosamil 600 mg [ceftaroline fosamil 600 mg intravenous solution] ld5 Route: IV; Rate: 1 calculated rate; Infused Over: 30 mins; Site: left hand; 01:40 Follow up: IV Status: Completed infusion; IV Intake: 50ml ld5 Intake: 01:40 IV: 50.00ml; Total: 50.00ml. ld5 Order Results: Lab Order: CBC with Diff; SPEC'M 12/11/16 00:45 Test: WHITE BLOOD COUNT; Value: 6.9; Range: 4.0-10.0; Units: K/mm3; Status: F Test: RED BLOOD COUNT; Value: 4.03; Range: 4.00-5.40; Units: M/mm3; Status: F Test: HEMOGLOBIN; Value: 12.5; Range: 12.0-16.0; Units: g/dl; Status: F Test: HEMATOCRIT; Value: 36.6; Range: 36.0-47.0; Units: %; Status: F Test: MEAN CORPUSCULAR VOLUME; Value: 90.9; Range: 80.0-96.0; Units: fl; Status: F Test: MEAN CORPUSCULAR HEMOGLOBIN; Value: 31.1; Range: 27.0-33.0; Units: pg; Status: F Test: MEAN CORPUSCULAR HGB CONC; Value: 34.2; Range: 32.0-36.5; Units: g/dl; Status: F Test: RED CELL DISTRIBUTION WIDTH; Value: 12.5; Range: 11.5-14.5; Units: %; Status: F Test: PLATELET COUNT, AUTOMATED; Value: 159; Range: 150-450; Units: k/mm3; Status: F Test: NEUTROPHILS %; Value: 56.7; Range: 36.0-66.0; Units: %; Status: F Test: LYMPH %; Value: 33.9; Range: 24.0-44.0; Units: %; Status: F Test: MONO %; Value: 5.2; Range: 0.0-5.0; Abnormal: Above high normal; Units: %; Status: F Test: EOS %; Value: 2.0; Range: 0.0-3.0; Units: %; Status: F Test: BASO %; Value: 0.5; Range: 0.0-1.0; Units: %; Status: F Test: LARGE UNSTAINED CELL %; Value: 1.7; Range: 0.0-4.0; Units: %; Status: F Test: NEUTROPHILS #; Value: 3.9; Range: 1.8-7.7; Units: K/mm3; Status: F Test: LYMPH #; Value: 2.3; Range: 1.5-6.5; Units: K/mm3; Status: F Test: MONO #; Value: 0.4; Range: 0.0-0.8; Units: K/mm3; Status: F Test: EOS #; Value: 0.1; Range: 0.0-0.50; Units: K/mm3; Status: F Test: BASO #; Value: 0.0; Range: 0.0-0.2; Units: K/mm3; Status: F Test: LARGE UNSTAINED CELL #; Value: 0.1; Range: 0.0-0.4; Units: K/mm3; Status: F Lab Order: [facility]; SPEC'M 12/11/16 00:45 Test: GLUCOSE, FASTING; Value: 84; Range: 70-105; Units: MG/DL; Status: F Test: BLOOD UREA NITROGEN; Value: 15; Range: 7-18; Units: MG/DL; Status: F Test: CREATININE FOR GFR; Value: 0.92; Range: 0.55-1.02; Units: MG/DL; Status: F Test: GLOMERULAR FILTRATION RATE; Value: > 60.0; Range: >60; Status: F Test: SODIUM LEVEL; Value: 143; Range: 136-145; Units: MEQ/L; Status: F Test: POTASSIUM SERUM; Value: 4.6; Range: 3.5-5.1; Abnormal: Delta; Units: MEQ/L; Status: F Test: CHLORIDE LEVEL; Value: 109; Range: 98-107; Abnormal: Above high normal; Units: MEQ/L; Status: F Test: CARBON DIOXIDE LEVEL; Value: 29; Range: 21-32; Units: MEQ/L; Status: F Test: ANION GAP; Value: 5; Range: 8-16; Abnormal: Below low normal; Units: MEQ/L; Status: F Test: CALCIUM LEVEL; Value: 8.2; Range: 8.5-10.1; Abnormal: Below low normal; Units: MG/DL; Status: F Test Note: ; Units are mL/min/1.73 m2 Chronic Kidney Disease Staging per NKF: Stage I & II GFR >=60 Normal to Mildly Decreased Stage III GFR 30-59 Moderately Decreased Stage IV GFR 15-29 Severely Decreased Stage V GFR <15 Very Little GFR Left ESRD GFR <15 on MANAGER POWER Outcome: 01:32 Discharge ordered by Provider. mo1 01:40 Discharge Assessment: Patient awake, alert and oriented x 3. No cognitive and/or ld5 functional deficits noted. Patient verbalized understanding of disposition instructions. patient administered narcotics - no. The following High Risk Discharge criteria are identified: None. Discharged to home ambulatory. Condition: stable. Discharge instructions given to patient, Instructed on discharge instructions, follow up and referral plans. medication usage, Demonstrated understanding of instructions, medications, Pt was receptive of discharge instructions/ teaching. Prescriptions given X 1, Work note provided to patient. No special radiology studies were completed. Property :Personal belongings accompany Pt. 01:42 Patient left the ED. ld5 Signatures: Ngozi Wells, RN RN kmg1 Albino Lloyd LPN LPN rw1 Tip Schreiber, VETERINARY MILK SPECIALIST VETERINARY MILK SPECIALIST kb5 Judah Frost, Reg Reg kf3 Lizz Olivares RN RN ld5 Joe Merrill PA PA mo1 Marcela Beyer Gabriela gjb Chart Complete MTDD
--- NOTE | 2016-12-13 17:42 | EDDOCDS ---
Physician Documentation [facility] Name: Sintia Hirsch Age: 26 yrs Sex: Female : 1990 Arrival Date: 12/11/2016 Time: 00:04 Bed I7 / 29 Private MD: Disposition: 12/11/16 01:32 Discharged to Home/Self Care. Impression: Cellulitis and abscess of mouth - right lower lip. - Condition is Stable. - Discharge Instructions: Abscess, Cellulitis. - Prescriptions for Clindamycin HCl 300 mg Oral Capsule - take 1 capsule by ORAL route every 6 hours; 40 capsule. - Medication Reconciliation, Work Release Form - 2 day, Local Pharmacy Hours form. - Follow up: David Trotter; When: Call to arrange an appointment; Reason: Recheck today's complaints, Continuance of care. - Problem is new. - Symptoms have improved. Historical: - Allergies: No known drug Allergies; - Home Meds: 1. naproxen 500 mg Oral tab 1 tab 2 times per day recently prescribed by [facility] 2. [place] 5-325 mg Oral tab 1 tab every 4 hours (Last dose: 12/10/2016 20:00) - PMHx: scleroderma; - PSHx: retina reaatachment surgery - right eye; - Social history: Smoking status: Patient states was never smoker of tobacco. No barriers to communication noted, The patient speaks fluent Vietnamese, Speaks appropriately for age. - Family history: Not pertinent. - : The pt / caregiver states he / she is not on anticoagulants. Home medication list is obtained from the patient, [employer] import data. - Exposure Risk Screening:: None identified. 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 00:35 CBC with Diff Ordered. EDMS 00:35 BMP Ordered. EDMS 00:59 Financial registration complete. h 01:20 CBC with Diff Reviewed. mo1 01:27 BMP Reviewed. mo1 01:44 [facility] Payment Agreement was scanned into [employer] and attached to record. [facility] 13:52 T-Sheet-- Draft Copy was scanned into [employer] and attached to record. kf3 Administered Medications: 00:47 Drug: Ceftaroline Fosamil 600 mg [ceftaroline fosamil 600 mg intravenous solution] ld5 Route: IV; Rate: 1 calculated rate; Infused Over: 30 mins; Site: left hand; 01:40 Follow up: IV Status: Completed infusion; IV Intake: 50ml ld5 Signatures: Dispatcher [employer] EDMS Ngozi Wells, RN RN kmg1 Albino Lloyd,MOLECULAR MODELER MOLECULAR MODELER rw1 Judah Frost, Reg Reg kf3 Lizz Olivares RN RN ld5 Joe Merrill PA PA mo1 Marcela Beyer [facility] The chart was reviewed and I authenticate all verbal orders and agree with the evaluation and treatment provided.Attachments: 01:44 [facility] Payment Agreement [facility] 13:52 T-Sheet-- Draft Copy kf3 Chart Complete MTDD
--- NOTE | 2016-12-13 17:42 | EDDOCDS ---
Nurse's Notes [facility] Name: Sintia Hirsch Age: 26 yrs Sex: Female : 1990 Arrival Date: 12/11/2016 Time: 00:04 Bed I7 / 29 Private MD: Diagnosis: Cellulitis and abscess of mouth-right lower lip Presentation: 12/11 00:16 Presenting complaint: Patient states: Here for repeat dose of vancomycin. Adult Sepsis [facility] Screening:. Suicide/Homicide risk assessment- the patient denies having any suicidal and/or homicidal ideations and does not present with any other emotional, behavioral or mental health complaints. 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 Transition of care: patient was not received from another setting of care. 00:16 Acuity: FREDSI Level 4 [facility] 00:16 Method Of Arrival: Walkin/Carried/Asstd [facility] 01:41 Adult Sepsis Screening: The patient does not have new or worsening altered mentation. ld5 Patient's respiratory rate is less than 22. Systolic blood pressure is greater than 100. Patient has a qSOFA score of 0- Negative Sepsis Screen. Triage Assessment: 00:17 General: Appears in no apparent distress, comfortable, Behavior is appropriate for age, kmg1 cooperative, pleasant. Pain: Location: right corner of mouth Pain currently is 6 out of 10 on a pain scale. Quality of pain is described as throbbing. HIV screening NA for this visit Offered previously. EENT: Lip swollen. 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 naproxen 500 mg Oral tab 1 tab 2 times per day recently prescribed by [facility] 2. [place] 5-325 mg Oral tab 1 tab every 4 hours (Last dose: 12/10/2016 20:00) - PMHx: scleroderma; - PSHx: retina reaatachment surgery - right eye; - Social history: Smoking status: Patient states was never smoker of tobacco. No barriers to communication noted, The patient speaks fluent Turkish, Speaks appropriately for age. - Family history: Not pertinent. - : The pt / caregiver states he / she is not on anticoagulants. Home medication list is obtained from the patient, [employer] import data. - Exposure Risk Screening:: None identified. Screenin:40 Screening information is obtained from the patient. Fall risk: No risks identified. ld5 Assistance ADL's: requires no assistance with activities of daily living. Abuse/DV Screen: The patient / caregiver reports he/she is: not in a situation that causes fear, pain or injury. Nutritional screening: No deficits noted. Advance Directives: There is no active DNR order. home support is adequate. Assessment: 00:50 General: Appears in no apparent distress, Behavior is appropriate for age, cooperative. ld5 Pain: Location: right corner of mouth. Neurological: Level of Consciousness is awake, alert. Respiratory: Airway is patent Respiratory effort is even, unlabored. Derm: Abscess located on right corner of mouth. 01:21 General: Pt resting comfortably in bed. No apparent distress. Will continue to monitor. ld5 01:40 General: Appears in no apparent distress, Behavior is cooperative. Pain: Location: ld5 right corner of mouth. Neurological: Level of Consciousness is awake, alert. Respiratory: Airway is patent Respiratory effort is even, unlabored. Vital Signs: 00:21 BP 119 / 66; Pulse 79; Resp 16; Temp 97.7(TE); Pulse Ox 97% on R/A; Pain 6/10; rw1 01:37 BP 117 / 59; Pulse 70; Resp 18; Temp 98.2(TE); Pulse Ox 97% on R/A; Pain 0/10; kb5 00:21 c/o pain in lip rw1 Vitals: 00:17 Log In Time: December 10, 2016 at 23:50. [facility] ED Course: 00:05 Patient visited by Brenda Ch. gjb 00:05 Patient moved to Waiting gjb 00:17 Triage Initiated kmg1 00:20 Patient moved to I / km 00:21 Joe Merrill PA is PHCP. mo1 00:21 Sonu Hyde DO is Attending Physician. mo1 00:[address] from earlier visit, 20 gauge in Left hand no redness noted. rw1 00:32 Patient visited by Joe Merrill PA. mo1 00:46 BMP Sent. rw1 00:46 CBC with Diff Sent. rw1 00:48 Patient visited by Lizz Olivares,MITUL. ld5 01:20 Patient visited by Lizz Olivares RN. ld5 01:22 Patient visited by Lizz Olivares RN. ld5 01:32 David Trotter is Referral Physician. mo1 01:37 Patient visited by Tip Schreiber PCA. kb5 01:40 The patient / caregiver is instructed regarding the plan of care and ED course. Patient ld5 has correct armband on for positive identification. 01:40 Discontinued lock intact, bleeding controlled, pressure dressing applied, No ld5 redness/swelling at site. No procedures done that require assistance. 01:42 Patient visited by Lizz Olivares RN. ld5 01:44 [facility] Payment Agreement was scanned into [employer] and attached to record. [facility] 13:52 T-Sheet-- Draft Copy was scanned into [employer] and attached to record. kf3 Administered Medications: 00:47 Drug: Ceftaroline Fosamil 600 mg [ceftaroline fosamil 600 mg intravenous solution] ld5 Route: IV; Rate: 1 calculated rate; Infused Over: 30 mins; Site: left hand; 01:40 Follow up: IV Status: Completed infusion; IV Intake: 50ml ld5 Intake: 01:40 IV: 50.00ml; Total: 50.00ml. ld5 Order Results: Lab Order: CBC with Diff; SPEC'M 12/11/16 00:45 Test: WHITE BLOOD COUNT; Value: 6.9; Range: 4.0-10.0; Units: K/mm3; Status: F Test: RED BLOOD COUNT; Value: 4.03; Range: 4.00-5.40; Units: M/mm3; Status: F Test: HEMOGLOBIN; Value: 12.5; Range: 12.0-16.0; Units: g/dl; Status: F Test: HEMATOCRIT; Value: 36.6; Range: 36.0-47.0; Units: %; Status: F Test: MEAN CORPUSCULAR VOLUME; Value: 90.9; Range: 80.0-96.0; Units: fl; Status: F Test: MEAN CORPUSCULAR HEMOGLOBIN; Value: 31.1; Range: 27.0-33.0; Units: pg; Status: F Test: MEAN CORPUSCULAR HGB CONC; Value: 34.2; Range: 32.0-36.5; Units: g/dl; Status: F Test: RED CELL DISTRIBUTION WIDTH; Value: 12.5; Range: 11.5-14.5; Units: %; Status: F Test: PLATELET COUNT, AUTOMATED; Value: 159; Range: 150-450; Units: k/mm3; Status: F Test: NEUTROPHILS %; Value: 56.7; Range: 36.0-66.0; Units: %; Status: F Test: LYMPH %; Value: 33.9; Range: 24.0-44.0; Units: %; Status: F Test: MONO %; Value: 5.2; Range: 0.0-5.0; Abnormal: Above high normal; Units: %; Status: F Test: EOS %; Value: 2.0; Range: 0.0-3.0; Units: %; Status: F Test: BASO %; Value: 0.5; Range: 0.0-1.0; Units: %; Status: F Test: LARGE UNSTAINED CELL %; Value: 1.7; Range: 0.0-4.0; Units: %; Status: F Test: NEUTROPHILS #; Value: 3.9; Range: 1.8-7.7; Units: K/mm3; Status: F Test: LYMPH #; Value: 2.3; Range: 1.5-6.5; Units: K/mm3; Status: F Test: MONO #; Value: 0.4; Range: 0.0-0.8; Units: K/mm3; Status: F Test: EOS #; Value: 0.1; Range: 0.0-0.50; Units: K/mm3; Status: F Test: BASO #; Value: 0.0; Range: 0.0-0.2; Units: K/mm3; Status: F Test: LARGE UNSTAINED CELL #; Value: 0.1; Range: 0.0-0.4; Units: K/mm3; Status: F Lab Order: [facility]; SPEC'M 12/11/16 00:45 Test: GLUCOSE, FASTING; Value: 84; Range: 70-105; Units: MG/DL; Status: F Test: BLOOD UREA NITROGEN; Value: 15; Range: 7-18; Units: MG/DL; Status: F Test: CREATININE FOR GFR; Value: 0.92; Range: 0.55-1.02; Units: MG/DL; Status: F Test: GLOMERULAR FILTRATION RATE; Value: > 60.0; Range: >60; Status: F Test: SODIUM LEVEL; Value: 143; Range: 136-145; Units: MEQ/L; Status: F Test: POTASSIUM SERUM; Value: 4.6; Range: 3.5-5.1; Abnormal: Delta; Units: MEQ/L; Status: F Test: CHLORIDE LEVEL; Value: 109; Range: 98-107; Abnormal: Above high normal; Units: MEQ/L; Status: F Test: CARBON DIOXIDE LEVEL; Value: 29; Range: 21-32; Units: MEQ/L; Status: F Test: ANION GAP; Value: 5; Range: 8-16; Abnormal: Below low normal; Units: MEQ/L; Status: F Test: CALCIUM LEVEL; Value: 8.2; Range: 8.5-10.1; Abnormal: Below low normal; Units: MG/DL; Status: F Test Note: ; Units are mL/min/1.73 m2 Chronic Kidney Disease Staging per NKF: Stage I & II GFR >=60 Normal to Mildly Decreased Stage III GFR 30-59 Moderately Decreased Stage IV GFR 15-29 Severely Decreased Stage V GFR <15 Very Little GFR Left ESRD GFR <15 on CROP 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 mo1 01:40 Discharge Assessment: Patient awake, alert and oriented x 3. No cognitive and/or ld5 functional deficits noted. Patient verbalized understanding of disposition instructions. patient administered narcotics - no. The following High Risk Discharge criteria are identified: None. Discharged to home ambulatory. Condition: stable. Discharge instructions given to patient, Instructed on discharge instructions, follow up and referral plans. medication usage, Demonstrated understanding of instructions, medications, Pt was receptive of discharge instructions/ teaching. Prescriptions given X 1, Work note provided to patient. No special radiology studies were completed. Property :Personal belongings accompany Pt. 01:42 Patient left the ED. ld5 Addendum: 12/13/2016 17:34 Narrative: Called and spoke to Sintia today. Discussed positive MRSA wound culture with mem her and that she was covered for MRSA with the IV Vancomycin and ceftaroline IV. Patient had also been given clindamycin PO prescription. Advised to continue until speaking with PCP. Patient will follow up with ADY Dodson and KENYA Pete. Copy o culture faxed to both Providers. Pita Clayton RN. Signatures: Ngozi Wells, RN RN kmg1 Albino Lloyd,GUARDIAN AD LITEM GUARDIAN AD LITEM rw1 Tip Schreiber, SYSTEMS ADMINISTRATOR SYSTEMS ADMINISTRATOR kb5 Judah Frost, Reg Reg kf3 Lizz Olivares RN RN ld5 Joe Merrill PA PA mo1 Marcela Beyer Mary, RN RN mem Beck, Gabriela gjb MTDD
--- NOTE | 2016-12-13 17:42 | EDDOCDS ---
Physician Documentation [facility] Name: Sintia Hirsch Age: 26 yrs Sex: Female : 1990 Arrival Date: 12/11/2016 Time: 00:04 Bed I7 / 29 Private MD: Disposition: 12/11/16 01:32 Discharged to Home/Self Care. Impression: Cellulitis and abscess of mouth - right lower lip. - Condition is Stable. - Discharge Instructions: Abscess, Cellulitis. - Prescriptions for Clindamycin HCl 300 mg Oral Capsule - take 1 capsule by ORAL route every 6 hours; 40 capsule. - Medication Reconciliation, Work Release Form - 2 day, Local Pharmacy Hours form. - Follow up: David Trotter; When: Call to arrange an appointment; Reason: Recheck today's complaints, Continuance of care. - Problem is new. - Symptoms have improved. Historical: - Allergies: No known drug Allergies; - Home Meds: 1. naproxen 500 mg Oral tab 1 tab 2 times per day recently prescribed by [facility] 2. [place] 5-325 mg Oral tab 1 tab every 4 hours (Last dose: 12/10/2016 20:00) - PMHx: scleroderma; - PSHx: retina reaatachment surgery - right eye; - Social history: Smoking status: Patient states was never smoker of tobacco. No barriers to communication noted, The patient speaks fluent Lithuanian, Speaks appropriately for age. - Family history: Not pertinent. - : The pt / caregiver states he / she is not on anticoagulants. Home medication list is obtained from the patient, [employer] import data. - Exposure Risk Screening:: None identified. 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 00:35 CBC with Diff Ordered. EDMS 00:35 BMP Ordered. EDMS 00:59 Financial registration complete. h 01:20 CBC with Diff Reviewed. mo1 01:27 BMP Reviewed. mo1 01:44 [facility] Payment Agreement was scanned into [employer] and attached to record. [facility] 13:52 T-Sheet-- Draft Copy was scanned into [employer] and attached to record. kf3 Administered Medications: 00:47 Drug: Ceftaroline Fosamil 600 mg [ceftaroline fosamil 600 mg intravenous solution] ld5 Route: IV; Rate: 1 calculated rate; Infused Over: 30 mins; Site: left hand; 01:40 Follow up: IV Status: Completed infusion; IV Intake: 50ml ld5 Signatures: Dispatcher [employer] EDMS Ngozi Wells, RN RN kmg1 Albino Lloyd,LAUNDRY ROUTEMAN LAUNDRY ROUTEMAN rw1 Judah Frost, Reg Reg kf3 Lizz Olivares RN RN ld5 Joe Merrill PA PA mo1 Marcela Beyer [facility] The chart was reviewed and I authenticate all verbal orders and agree with the evaluation and treatment provided.Attachments: 01:44 [facility] Payment Agreement [facility] 13:52 T-Sheet-- Draft Copy kf3 Chart Complete MTDD
--- NOTE | 2016-12-13 17:42 | EDDOCDS ---
Physician Documentation [facility] Name: Sintia Hirsch Age: 26 yrs Sex: Female : 1990 Arrival Date: 12/11/2016 Time: 00:04 Bed I7 / 29 Private MD: Disposition: 12/11/16 01:32 Discharged to Home/Self Care. Impression: Cellulitis and abscess of mouth - right lower lip. - Condition is Stable. - Discharge Instructions: Abscess, Cellulitis. - Prescriptions for Clindamycin HCl 300 mg Oral Capsule - take 1 capsule by ORAL route every 6 hours; 40 capsule. - Medication Reconciliation, Work Release Form - 2 day, Local Pharmacy Hours form. - Follow up: David Trotter; When: Call to arrange an appointment; Reason: Recheck today's complaints, Continuance of care. - Problem is new. - Symptoms have improved. Historical: - Allergies: No known drug Allergies; - Home Meds: 1. naproxen 500 mg Oral tab 1 tab 2 times per day recently prescribed by [facility] 2. [place] 5-325 mg Oral tab 1 tab every 4 hours (Last dose: 12/10/2016 20:00) - PMHx: scleroderma; - PSHx: retina reaatachment surgery - right eye; - Social history: Smoking status: Patient states was never smoker of tobacco. No barriers to communication noted, The patient speaks fluent Marshallese, Speaks appropriately for age. - Family history: Not pertinent. - : The pt / caregiver states he / she is not on anticoagulants. Home medication list is obtained from the patient, [employer] import data. - Exposure Risk Screening:: None identified. 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 00:35 CBC with Diff Ordered. EDMS 00:35 BMP Ordered. EDMS 00:59 Financial registration complete. h 01:20 CBC with Diff Reviewed. mo1 01:27 BMP Reviewed. mo1 01:44 [facility] Payment Agreement was scanned into [employer] and attached to record. [facility] 13:52 T-Sheet-- Draft Copy was scanned into [employer] and attached to record. kf3 Administered Medications: 00:47 Drug: Ceftaroline Fosamil 600 mg [ceftaroline fosamil 600 mg intravenous solution] ld5 Route: IV; Rate: 1 calculated rate; Infused Over: 30 mins; Site: left hand; 01:40 Follow up: IV Status: Completed infusion; IV Intake: 50ml ld5 Signatures: Dispatcher [employer] EDMS Ngozi Wells, RN RN kmg1 Albino Lloyd,SECURITY DISPATCHER SECURITY DISPATCHER rw1 Judah Frost, Reg Reg kf3 Lizz Olivares RN RN ld5 Joe Merrill PA PA mo1 Marcela Beyer [facility] The chart was reviewed and I authenticate all verbal orders and agree with the evaluation and treatment provided.Attachments: 01:44 [facility] Payment Agreement [facility] 13:52 T-Sheet-- Draft Copy kf3 MTDD
--- NOTE | 2016-12-13 17:42 | EDDOCDS ---
Physician Documentation [facility] Name: Sintia Hirsch Age: 26 yrs Sex: Female : 1990 Arrival Date: 12/11/2016 Time: 00:04 Bed I7 / 29 Private MD: Disposition: 12/11/16 01:32 Discharged to Home/Self Care. Impression: Cellulitis and abscess of mouth - right lower lip. - Condition is Stable. - Discharge Instructions: Abscess, Cellulitis. - Prescriptions for Clindamycin HCl 300 mg Oral Capsule - take 1 capsule by ORAL route every 6 hours; 40 capsule. - Medication Reconciliation, Work Release Form - 2 day, Local Pharmacy Hours form. - Follow up: David Trotter; When: Call to arrange an appointment; Reason: Recheck today's complaints, Continuance of care. - Problem is new. - Symptoms have improved. Historical: - Allergies: No known drug Allergies; - Home Meds: 1. naproxen 500 mg Oral tab 1 tab 2 times per day recently prescribed by [facility] 2. [place] 5-325 mg Oral tab 1 tab every 4 hours (Last dose: 12/10/2016 20:00) - PMHx: scleroderma; - PSHx: retina reaatachment surgery - right eye; - Social history: Smoking status: Patient states was never smoker of tobacco. No barriers to communication noted, The patient speaks fluent Comoran, Speaks appropriately for age. - Family history: Not pertinent. - : The pt / caregiver states he / she is not on anticoagulants. Home medication list is obtained from the patient, [employer] import data. - Exposure Risk Screening:: None identified. 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 00:35 CBC with Diff Ordered. EDMS 00:35 BMP Ordered. EDMS 00:59 Financial registration complete. h 01:20 CBC with Diff Reviewed. mo1 01:27 BMP Reviewed. mo1 01:44 [facility] Payment Agreement was scanned into [employer] and attached to record. [facility] 13:52 T-Sheet-- Draft Copy was scanned into [employer] and attached to record. kf3 Administered Medications: 00:47 Drug: Ceftaroline Fosamil 600 mg [ceftaroline fosamil 600 mg intravenous solution] ld5 Route: IV; Rate: 1 calculated rate; Infused Over: 30 mins; Site: left hand; 01:40 Follow up: IV Status: Completed infusion; IV Intake: 50ml ld5 Signatures: Dispatcher [employer] EDMS Ngozi Wells, RN RN kmg1 Albino Lloyd,PATTERN CHECKER PATTERN CHECKER rw1 Judah Frost, Reg Reg kf3 Lizz Olivares RN RN ld5 Joe Merrill PA PA mo1 Marcela Beyer [facility] The chart was reviewed and I authenticate all verbal orders and agree with the evaluation and treatment provided.Attachments: 01:44 [facility] Payment Agreement [facility] 13:52 T-Sheet-- Draft Copy kf3 MTDD
--- NOTE | 2016-12-13 17:42 | EDDOCDS ---
Nurse's Notes [facility] Name: Sintia Hirsch Age: 26 yrs Sex: Female : 1990 Arrival Date: 12/11/2016 Time: 00:04 Bed I7 / 29 Private MD: Diagnosis: Cellulitis and abscess of mouth-right lower lip Presentation: 12/11 00:16 Presenting complaint: Patient states: Here for repeat dose of vancomycin. Adult Seps[place] [facility] [place]:. Suicide/Homicide risk assessment- the patient denies having any suicidal and/or homicidal ideations and does not present with any other emotional, behavioral or mental health complaints. Status: Patient is not a rehabilitation services director or dependent. Transition of care: patient was not received from another setting of care. 00:16 Acuity: FREDIS Level 4 [facility] [place]:16 Method Of Arrival: Walkin/Carried/[place]std [facility] 01:41 Adult Sepsis Screening: The patient does not have new or worsening altered mentation. ld5 Patient's respiratory rate is less than 22. Systolic blood pressure is greater than 100. Patient has a qSOFA score of 0- Negative Sepsis Screen. Triage Assessment: 00:17 General: Appears in no apparent distress, comfortable, Behavior is appropriate for age, kmg1 cooperative, pleasant. Pain: Location: right corner of mouth Pain currently is 6 out of 10 on a pain scale. Quality of pain is described as throbbing. HIV screening NA for this visit Offered previously. EENT: Lip swollen. 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 naproxen 500 mg Oral tab 1 tab 2 times per day recently prescribed by [facility] 2. [place] 5-325 mg Oral tab 1 tab every 4 hours (Last dose: 12/10/2016 20:00) - PMHx: scleroderma; - PSHx: retina reaatachment surgery - right eye; - Social history: Smoking status: Patient states was never smoker of tobacco. No barriers to communication noted, The patient speaks fluent Turkish, Speaks appropriately for age. - Family history: Not pertinent. - : The pt / caregiver states he / she is not on anticoagulants. Home medication list is obtained from the patient, [employer] import data. - Exposure Risk Screening:: None identified. Screenin:40 Screening information is obtained from the patient. Fall risk: No risks identified. ld5 Assistance ADL's: requires no assistance with activities of daily living. Abuse/DV Screen: The patient / caregiver reports he/she is: not in a situation that causes fear, pain or injury. Nutritional screening: No deficits noted. Advance Directives: There is no active DNR order. home support is adequate. Assessment: 00:50 General: Appears in no apparent distress, Behavior is appropriate for age, cooperative. ld5 Pain: Location: right corner of mouth. Neurological: Level of Consciousness is awake, alert. Respiratory: Airway is patent Respiratory effort is even, unlabored. Derm: Abscess located on right corner of mouth. 01:21 General: Pt resting comfortably in bed. No apparent distress. Will continue to monitor. ld5 01:40 General: Appears in no apparent distress, Behavior is cooperative. Pain: Location: ld5 right corner of mouth. Neurological: Level of Consciousness is awake, alert. Respiratory: Airway is patent Respiratory effort is even, unlabored. Vital Signs: 00:21 BP 119 / 66; Pulse 79; Resp 16; Temp 97.7(TE); Pulse Ox 97% on R/A; Pain 6/10; rw1 01:37 BP 117 / 59; Pulse 70; Resp 18; Temp 98.2(TE); Pulse Ox 97% on R/A; Pain 0/10; kb5 00:21 c/o pain in lip rw1 Vitals: 00:17 Log In Time: December 10, 2016 at 23:50. [facility] [place] Course: 00:05 Patient visited by Brenda Ch. gjb 00:05 Patient moved to Waiting gjb 00:17 Triage Initiated kmg1 00:20 Patient moved to I / km 00:21 Joe Merrill PA is PHCP. mo1 00:21 Sonu Hyde DO is Attending Physician. mo1 00:[address] from earlier visit, 20 gauge in Left hand no redness noted. rw1 00:32 Patient visited by Joe Merrill PA. mo1 00:46 BMP Sent. rw1 00:46 CBC with Diff Sent. rw1 00:48 Patient visited by Lizz Olivares,MITUL. ld5 01:20 Patient visited by Lizz Olivares RN. ld5 01:22 Patient visited by Lizz Olivares RN. ld5 01:32 David Trotter is Referral Physician. mo1 01:37 Patient visited by Tip Schreiber PCA. kb5 01:40 The patient / caregiver is instructed regarding the plan of care and ED course. Patient ld5 has correct armband on for positive identification. 01:40 Discontinued lock intact, bleeding controlled, pressure dressing applied, No ld5 redness/swelling at site. No procedures done that require assistance. 01:42 Patient visited by Lizz Olivares RN. ld5 01:44 [facility] Payment Agreement was scanned into [employer] and attached to record. [facility] 13:52 T-Sheet-- Draft Copy was scanned into [employer] and attached to record. kf3 Administered Medications: 00:47 Drug: Ceftaroline Fosamil 600 mg [ceftaroline fosamil 600 mg intravenous solution] ld5 Route: IV; Rate: 1 calculated rate; Infused Over: 30 mins; Site: left hand; 01:40 Follow up: IV Status: Completed infusion; IV Intake: 50ml ld5 Intake: 01:40 IV: 50.00ml; Total: 50.00ml. ld5 Order Results: Lab Order: CBC with Diff; SPEC'M 12/11/16 00:45 Test: WHITE BLOOD COUNT; Value: 6.9; Range: 4.0-10.0; Units: K/mm3; Status: F Test: RED BLOOD COUNT; Value: 4.03; Range: 4.00-5.40; Units: M/mm3; Status: F Test: HEMOGLOBIN; Value: 12.5; Range: 12.0-16.0; Units: g/dl; Status: F Test: HEMATOCRIT; Value: 36.6; Range: 36.0-47.0; Units: %; Status: F Test: MEAN CORPUSCULAR VOLUME; Value: 90.9; Range: 80.0-96.0; Units: fl; Status: F Test: MEAN CORPUSCULAR HEMOGLOBIN; Value: 31.1; Range: 27.0-33.0; Units: pg; Status: F Test: MEAN CORPUSCULAR HGB CONC; Value: 34.2; Range: 32.0-36.5; Units: g/dl; Status: F Test: RED CELL DISTRIBUTION WIDTH; Value: 12.5; Range: 11.5-14.5; Units: %; Status: F Test: PLATELET COUNT, AUTOMATED; Value: 159; Range: 150-450; Units: k/mm3; Status: F Test: NEUTROPHILS %; Value: 56.7; Range: 36.0-66.0; Units: %; Status: F Test: LYMPH %; Value: 33.9; Range: 24.0-44.0; Units: %; Status: F Test: MONO %; Value: 5.2; Range: 0.0-5.0; Abnormal: Above high normal; Units: %; Status: F Test: EOS %; Value: 2.0; Range: 0.0-3.0; Units: %; Status: F Test: BASO %; Value: 0.5; Range: 0.0-1.0; Units: %; Status: F Test: LARGE UNSTAINED CELL %; Value: 1.7; Range: 0.0-4.0; Units: %; Status: F Test: NEUTROPHILS #; Value: 3.9; Range: 1.8-7.7; Units: K/mm3; Status: F Test: LYMPH #; Value: 2.3; Range: 1.5-6.5; Units: K/mm3; Status: F Test: MONO #; Value: 0.4; Range: 0.0-0.8; Units: K/mm3; Status: F Test: EOS #; Value: 0.1; Range: 0.0-0.50; Units: K/mm3; Status: F Test: BASO #; Value: 0.0; Range: 0.0-0.2; Units: K/mm3; Status: F Test: LARGE UNSTAINED CELL #; Value: 0.1; Range: 0.0-0.4; Units: K/mm3; Status: F Lab Order: [facility]; SPEC'M 12/11/16 00:45 Test: GLUCOSE, FASTING; Value: 84; Range: 70-105; Units: MG/DL; Status: F Test: BLOOD UREA NITROGEN; Value: 15; Range: 7-18; Units: MG/DL; Status: F Test: CREATININE FOR GFR; Value: 0.92; Range: 0.55-1.02; Units: MG/DL; Status: F Test: GLOMERULAR FILTRATION RATE; Value: > 60.0; Range: >60; Status: F Test: SODIUM LEVEL; Value: 143; Range: 136-145; Units: MEQ/L; Status: F Test: POTASSIUM SERUM; Value: 4.6; Range: 3.5-5.1; Abnormal: Delta; Units: MEQ/L; Status: F Test: CHLORIDE LEVEL; Value: 109; Range: 98-107; Abnormal: Above high normal; Units: MEQ/L; Status: F Test: CARBON DIOXIDE LEVEL; Value: 29; Range: 21-32; Units: MEQ/L; Status: F Test: ANION GAP; Value: 5; Range: 8-16; Abnormal: Below low normal; Units: MEQ/L; Status: F Test: CALCIUM LEVEL; Value: 8.2; Range: 8.5-10.1; Abnormal: Below low normal; Units: MG/DL; Status: F Test Note: ; Units are mL/min/1.73 m2 Chronic Kidney Disease Staging per NKF: Stage I & II GFR >=60 Normal to Mildly Decreased Stage III GFR 30-59 Moderately Decreased Stage IV GFR 15-29 Severely Decreased Stage V GFR <15 Very Little GFR Left ESRD GFR <15 on COMMUNICATION ARTS LECTURER Outcome: 01:32 Discharge ordered by Provider. mo1 01:40 Discharge Assessment: Patient awake, alert and oriented x 3. No cognitive and/or ld5 functional deficits noted. Patient verbalized understanding of disposition instructions. patient administered narcotics - no. The following High Risk Discharge criteria are identified: None. Discharged to home ambulatory. Condition: stable. Discharge instructions given to patient, Instructed on discharge instructions, follow up and referral plans. medication usage, Demonstrated understanding of instructions, medications, Pt was receptive of discharge instructions/ teaching. Prescriptions given X 1, Work note provided to patient. No special radiology studies were completed. Property :Personal belongings accompany Pt. 01:42 Patient left the ED. ld5 Addendum: 12/13/2016 17:34 Narrative: Called and spoke to Sintia today. Discussed positive MRSA wound culture with mem her and that she was covered for MRSA with the IV Vancomycin and ceftaroline IV. Patient had also been given clindamycin PO prescription. Advised to continue until speaking with PCP. Patient will follow up with ADY Dodson and KENYA Pete. Copy o culture faxed to both Providers. Pita Clayton RN. Signatures: Ngozi Wells, RN RN kmg1 Albino Lloyd,NUCLEAR UNIT OPERATOR NUCLEAR UNIT OPERATOR rw1 Tip Schreiber, ROSTER CLERK ROSTER CLERK kb5 Judah Frost, Reg Reg kf3 Lizz Olivares RN RN ld5 Joe Merrill PA PA mo1 Marcela Beyer Mary, RN RN mem Beck, Gabriela gjb Chart Complete MTDD
== END 2016-12-11 01:42 | disposition home or self-care (01) ==
LOC: EEVIPCON 00:04 → M ED 00:04
DX: K13.0 Diseases of lips (principal); A49.02 Methicillin resistant Staphylococcus aureus infection, unspecified site; M34.9 Systemic sclerosis, unspecified; Z79.891 Long term (current) use of opiate analgesic

== ENCOUNTER 2017-03-30 21:17 | Emergency (ER) | payer MEDICAID, OTHER, SELFPAY ==
[~2017-03-30] VITALS: Ht 165.1 cm; Wt 59.0 kg
[2017-03-30] MEDS ORDERED: SULF1TAB72 (21:31)
[2017-03-30] MEDS ORDERED: METOCLOPRAMIDE INJ 10MG/2ML VIAL (J2765) IV ONE (23:30)
[2017-03-30] MEDS ORDERED: NS 1,000 ML IV ONE (23:30)
[2017-03-30 23:57] LABS: BASO % 0.3 % (0.0-1.0); EOS # 0.1 K/mm3 (0.0-0.50); EOS % 1.1 % (0.0-3.0); LARGE UNSTAINED CELL # 0.1 K/mm3 (0.0-0.4); LARGE UNSTAINED CELL % 0.8 % (0.0-4.0); LYMPH # 1.4 K/mm3 (1.5-6.5); LYMPH % 11.6 % (24.0-44.0); MEAN CORPUSCULAR HEMOGLOBIN 29.8 pg (27.0-33.0); MEAN CORPUSCULAR HGB CONC 33.2 g/dl (32.0-36.5); MEAN CORPUSCULAR VOLUME 89.6 fl (80.0-96.0); MONO # 0.4 K/mm3 (0.0-0.8); MONO % 3.4 % (0.0-5.0); NEUTROPHILS # 9.1 K/mm3 (1.8-7.7); NEUTROPHILS % 82.8 % (36.0-66.0); PLATELET COUNT, AUTOMATED 201 k/mm3 (150-450); RED CELL DISTRIBUTION WIDTH 12.3 % (11.5-14.5)
[2017-03-31 00:11] LABS: CONTROL LINE HCG INT CTR LINE PRESENT
[2017-03-31 00:18] LABS: AMYLASE 61 U/L (25-115); ANION GAP 7 MEQ/L (8-16); BLOOD UREA NITROGEN 15 MG/DL (7-18); CARBON DIOXIDE LEVEL 30 MEQ/L (21-32); CHLORIDE LEVEL 102 MEQ/L (98-107); CREATININE FOR GFR 0.95 MG/DL (0.55-1.02); GLOMERULAR FILTRATION RATE > 60.0 (>60); GLUCOSE, FASTING 78 MG/DL (70-105); POTASSIUM SERUM 3.8 MEQ/L (3.5-5.1); SODIUM LEVEL 139 MEQ/L (136-145)
[2017-03-31] MEDS ORDERED: REGL10TA6 PO (01:42)
[2017-03-31 01:47] VITALS: BP 96/56
== END 2017-03-31 02:01 | disposition home or self-care (01) ==
LOC: M ED 22:51
DX: K52.9 Noninfective gastroenteritis and colitis, unspecified (principal)
CPT/HCPCS: 36415; 80048; 81001; 82150; 83690; 84703; 85025; 87086; 96361; 96374; 99283; J2765

== ENCOUNTER 2017-07-02 20:41 | Emergency (ER) | payer OTHER, SELFPAY ==
[~2017-07-02] VITALS: Ht 165.1 cm; Wt 61.7 kg
[~2017-07-02 20:41] MED LIST: REGL10TA6 PO; SULF1TAB72
[2017-07-02] MEDS ORDERED: NS 1,000 ML IV ONE (21:45)
[2017-07-02] MEDS ORDERED: METOCLOPRAMIDE INJ 10MG/2ML VIAL (J2765) IV ONE (21:45)
[2017-07-02] MEDS ORDERED: ACETAMINOPHEN 325 MG TAB PO ONE (21:45)
[2017-07-02] MEDS ORDERED: diphenhydrAMINE INJ 50MG/ML VIAL (J1200) IV ONE (21:45)
[2017-07-02 21:59] LABS: BASO % 0.3 % (0.0-1.0); EOS # 0.2 K/mm3 (0.0-0.50); EOS % 1.6 % (0.0-3.0); LARGE UNSTAINED CELL # 0.1 K/mm3 (0.0-0.4); LARGE UNSTAINED CELL % 0.8 % (0.0-4.0); LYMPH # 1.5 K/mm3 (1.5-6.5); MEAN CORPUSCULAR HEMOGLOBIN 30.9 pg (27.0-33.0); MEAN CORPUSCULAR HGB CONC 34.1 g/dl (32.0-36.5); MEAN CORPUSCULAR VOLUME 90.6 fl (80.0-96.0); MONO # 0.4 K/mm3 (0.0-0.8); MONO % 4.3 % (0.0-5.0); PLATELET COUNT, AUTOMATED 187 k/mm3 (150-450); RED CELL DISTRIBUTION WIDTH 12.9 % (11.5-14.5); WHITE BLOOD COUNT 10.1 K/mm3 (4.0-10.0)
[2017-07-02 22:37] LABS: ALBUMIN 4.3 GM/DL (3.2-5.2); ALBUMIN/GLOBULIN RATIO 1.43 (1.00-1.93); ALKALINE PHOSPHATASE 54 U/L (45-117); ALT/SGPT 16 U/L (12-78); AMYLASE 59 U/L (25-115); ANION GAP 9 MEQ/L (8-16); AST/SGOT 10 U/L (15-37); BILIRUBIN,DIRECT 0.2 MG/DL (0.0-0.2); BILIRUBIN,TOTAL 0.6 MG/DL (0.2-1.0); BLOOD UREA NITROGEN 10 MG/DL (7-18); CALCIUM LEVEL 8.8 MG/DL (8.5-10.1); CARBON DIOXIDE LEVEL 25 MEQ/L (21-32); CHLORIDE LEVEL 109 MEQ/L (98-107); CREATININE FOR GFR 0.72 MG/DL (0.55-1.02); GLOMERULAR FILTRATION RATE > 60.0 (>60); GLUCOSE, FASTING 89 MG/DL (70-105); HCG, SERUM QUANTITATIVE 28067 MIU/ML; POTASSIUM SERUM 3.7 MEQ/L (3.5-5.1); SODIUM LEVEL 143 MEQ/L (136-145); TOTAL PROTEIN 7.3 GM/DL (6.4-8.2)
[2017-07-02] MEDS ORDERED: REGL10TA6 PO (22:41)
[2017-07-02 22:48] VITALS: BP 101/54
== END 2017-07-02 23:17 | disposition home or self-care (01) ==
LOC: M ED 20:41
DX: O26.891 Other specified pregnancy related conditions, first trimester (principal); R10.9 Unspecified abdominal pain; R19.7 Diarrhea, unspecified; O21.9 Vomiting of pregnancy, unspecified; Z3A.01 Less than 8 weeks gestation of pregnancy
CPT/HCPCS: 36415; 80048; 80076; 81001; 81025; 82150; 83690; 84702; 85025; 86901; 87086; 96374; 96375; 99284; J1200; J2765

== ENCOUNTER 2017-07-07 19:05 | Emergency (ER) | payer OTHER ==
[~2017-07-07] VITALS: Ht 165.1 cm; Wt 59.2 kg
[2017-07-07 19:06] VITALS: BP 133/85
== END 2017-07-07 20:41 | disposition left against medical advice (07) ==
LOC: M ED 19:05
DX: O21.9 Vomiting of pregnancy, unspecified (principal); Z53.29 Procedure and treatment not carried out because of patient's decision for other reasons

== ENCOUNTER → 2017-12-18 | Outpatient (CLI) | payer OTHER ==
[2017-12-18 15:39] LABS: BASO # 0.1 10^3/uL (0.0-0.2); BASO % 0.8 % (0.0-1.0); EOS # 0.1 10^3/uL (0.0-0.50); EOS % 1.6 % (0.0-3.0); HEMATOCRIT 41.4 % (36.0-47.0); HEMOGLOBIN 13.7 g/dl (12.0-16.0); IMMATURE GRANULOCYTE % 0.3 % (0-0); LYMPH # 1.8 10^3/uL (1.5-6.5); LYMPH % 28.7 % (24.0-44.0); MEAN CORPUSCULAR HEMOGLOBIN 29.4 pg (27.0-33.0); MEAN CORPUSCULAR HGB CONC 33.1 g/dl (32.0-36.5); MEAN CORPUSCULAR VOLUME 88.8 fl (80.0-96.0); MONO # 0.5 10^3/uL (0.0-0.8); MONO % 7.8 % (0.0-5.0); NEUTROPHILS # 3.7 10^3/uL (1.8-7.7); NEUTROPHILS % 60.8 % (36.0-66.0); PLATELET COUNT, AUTOMATED 161 10^3/uL (150-450); RED BLOOD COUNT 4.66 10^6/uL (4.00-5.40); RED CELL DISTRIBUTION WIDTH 12.5 % (11.5-14.5); WHITE BLOOD COUNT 6.1 10^3/uL (4.0-10.0)
[2017-12-18 16:06] LABS: ALBUMIN 3.7 GM/DL (3.2-5.2); ALBUMIN/GLOBULIN RATIO 1.19 (1.00-1.93); ALKALINE PHOSPHATASE 62 U/L (45-117); ALT/SGPT 13 U/L (12-78); ANION GAP 5 MEQ/L (8-16); AST/SGOT 12 U/L (7-37); BILIRUBIN,TOTAL 0.2 MG/DL (0.2-1.0); BLOOD UREA NITROGEN 13 MG/DL (7-18); CALCIUM LEVEL 8.4 MG/DL (8.5-10.1); CARBON DIOXIDE LEVEL 29 MEQ/L (21-32); CHLORIDE LEVEL 108 MEQ/L (98-107); CHOLESTEROL LEVEL 136 MG/DL (<200); GLOMERULAR FILTRATION RATE > 60.0 (>60); GLUCOSE, FASTING 82 MG/DL (70-100); HDL CHOLESTEROL 44 MG/DL (>40); LDL CHOLESTEROL 75.6 MG/DL (<100); NON-HDL-C 92 MG/DL; POTASSIUM SERUM 4.1 MEQ/L (3.5-5.1); SODIUM LEVEL 142 MEQ/L (136-145); TOTAL PROTEIN 6.8 GM/DL (6.4-8.2); TRIGLYCERIDES LEVEL 82 MG/DL (<150)
[2017-12-18 16:19] LABS: ESTIMATED AVERAGE GLUCOSE 103 MG/DL (60-110); HEMOGLOBIN A1c 5.2 %
[2017-12-18 17:47] LABS: TOTAL 25(OH) VITAMIN D 20.4 NG/ML (30.0-100.0); VITAMIN B12 LEVEL 281 PG/ML (247-911)
== END ==
LOC: M LAB 14:54
DX: F33.1 Major depressive disorder, recurrent, moderate (principal)
CPT/HCPCS: 84443

== ENCOUNTER → 2018-05-31 | Outpatient (CLI) | payer OTHER | LOC: M OUTALCOH 09:12 | DX: Z13.9 Encounter for screening, unspecified (principal); F12.10 Cannabis abuse, uncomplicated ==

== ENCOUNTER 2018-06-11 16:00 | Outpatient (RCR) | payer OTHER, MEDICAID | END 2018-06-19 | LOC: M OUTALCOH 16:00 | DX: F12.10 Cannabis abuse, uncomplicated (principal) ==

== ENCOUNTER 2018-06-12 13:00 | Emergency (ER) | payer OTHER, MEDICAID | END 2018-06-12 16:01 | disposition left against medical advice (07) | LOC: M ED 13:00 | DX: L98.9 Disorder of the skin and subcutaneous tissue, unspecified (principal); Z53.21 Procedure and treatment not carried out due to patient leaving prior to being seen by health care provider ==

== ENCOUNTER 2018-06-13 17:39 | Emergency (ER) | payer MEDICAID, OTHER | END 2018-06-13 18:29 | disposition home or self-care (01) | LOC: M ED 17:39 | DX: N75.1 Abscess of Bartholin's gland (principal); F32.9 Major depressive disorder, single episode, unspecified; F41.9 Anxiety disorder, unspecified | CPT/HCPCS: 87186 ==

== ENCOUNTER 2018-06-22 19:37 | Emergency (ER) | payer MEDICAID ==
[2018-06-22] MEDS: clonazePAM 0.5 MG TAB PO (22:45)
== END 2018-06-22 22:50 | disposition home or self-care (01) ==
LOC: M ED 19:37
DX: F41.9 Anxiety disorder, unspecified (principal)
CPT/HCPCS: 99284

== ENCOUNTER → 2018-07-16 | Outpatient (CLI) | payer MEDICAID ==
[2018-07-16 16:02] LABS: BASO % 0.6 % (0.0-1.0); EOS # 0.1 10^3/uL (0.0-0.50); EOS % 1.9 % (0.0-3.0); HEMOGLOBIN 13.7 g/dl (12.0-15.5); IMMATURE GRANULOCYTE % 0.3 % (0-3.0); LYMPH # 1.8 10^3/uL (1.5-6.5); LYMPH % 28.5 % (24.0-44.0); MEAN CORPUSCULAR HEMOGLOBIN 30.6 pg (27.0-33.0); MEAN CORPUSCULAR HGB CONC 33.4 g/dl (32.0-36.5); MEAN CORPUSCULAR VOLUME 91.5 fl (80.0-96.0); MONO # 0.5 10^3/uL (0.0-0.8); MONO % 7.5 % (0.0-5.0); NEUTROPHILS # 3.8 10^3/uL (1.8-7.7); NEUTROPHILS % 61.2 % (36.0-66.0); PLATELET COUNT, AUTOMATED 163 10^3/uL (150-450); RED BLOOD COUNT 4.48 10^6/uL (4.00-5.40); RED CELL DISTRIBUTION WIDTH 12.2 % (11.5-14.5); WHITE BLOOD COUNT 6.3 10^3/uL (4.0-10.0)
[2018-07-16 16:20] LABS: ESTIMATED AVERAGE GLUCOSE 94 MG/DL (60-110); HEMOGLOBIN A1c 4.9 %
[2018-07-16 16:24] LABS: ALBUMIN 3.6 GM/DL (3.2-5.2); ALBUMIN/GLOBULIN RATIO 1.24 (1.00-1.93); ALKALINE PHOSPHATASE 45 U/L (45-117); ALT/SGPT 16 U/L (12-78); ANION GAP 6 MEQ/L (8-16); AST/SGOT 8 U/L (7-37); BILIRUBIN,TOTAL 0.3 MG/DL (0.2-1.0); BLOOD UREA NITROGEN 12 MG/DL (7-18); CALCIUM LEVEL 8.6 MG/DL (8.5-10.1); CARBON DIOXIDE LEVEL 30 MEQ/L (21-32); CHLORIDE LEVEL 109 MEQ/L (98-107); CREATININE FOR GFR 0.84 MG/DL (0.55-1.30); GLOMERULAR FILTRATION RATE > 60.0 (>60); GLUCOSE, FASTING 67 MG/DL (70-100); SODIUM LEVEL 145 MEQ/L (136-145); TOTAL PROTEIN 6.5 GM/DL (6.4-8.2)
[2018-07-16 16:28] LABS: PTH INTACT 19.6 PG/ML (18.5-88.0); TOTAL 25(OH) VITAMIN D 30.5 NG/ML (30.0-100.0)
== END ==
LOC: M LAB 15:18
DX: F32.9 Major depressive disorder, single episode, unspecified (principal); Z13.228 Encounter for screening for other metabolic disorders; E55.9 Vitamin D deficiency, unspecified
CPT/HCPCS: 84443

== ENCOUNTER → 2018-08-15 | Outpatient (REF) | payer MEDICAID | LOC: M SFHCPLAZ 10:12 | DX: Z12.4 Encounter for screening for malignant neoplasm of cervix (principal) ==

== ENCOUNTER 2019-12-11 22:49 | Emergency (ER) | payer MEDICAID, OTHER ==
[~2019-12-11] VITALS: Ht 165.1 cm; Wt 63.2 kg
[~2019-12-11 22:49] MED LIST changes: +BACT800T5 PO; +KLON0.5T PO; -SULF1TAB72; +SULF400T14
[2019-12-11 22:50] VITALS: BP 134/71
[2019-12-11] MEDS ORDERED: ARIP1TAB2 (22:57)
[2019-12-11] MEDS ORDERED: TRAZ-257 (22:57)
[2019-12-11] MEDS ORDERED: BUSP15TA47 (22:57)
[2019-12-11] MEDS ORDERED: HYDR50TA70 (22:57)
[2019-12-11] MEDS ORDERED: PARO40TA2 (22:57)
== END 2019-12-12 01:55 | disposition left against medical advice (07) ==
LOC: M ED 22:49
DX: Z53.21 Procedure and treatment not carried out due to patient leaving prior to being seen by health care provider (principal)

== ENCOUNTER → 2019-12-12 | Outpatient (REF) | payer OTHER ==
[~2019-12-12] MED LIST changes: +ARIP1TAB2; +BUSP15TA47; +HYDR50TA70; +PARO40TA2; +TRAZ-257
[2019-12-12 12:58] LABS: THYROID STIMULATING HORMONE 0.698 uIU/ML (0.358-3.740)
[2019-12-12 12:59] LABS: TOTAL 25(OH) VITAMIN D 26.6 NG/ML (30.0-100.0)
== END ==
LOC: M SFHCADAM 09:01
PROVIDERS: ATTEND Physician Assistant Medical
DX: E55.9 Vitamin D deficiency, unspecified (principal); F32.2 Major depressive disorder, single episode, severe without psychotic features

== ENCOUNTER → 2022-08-03 | Outpatient (CLI) | payer OTHER ==
[~2022-08-03] MED LIST changes: -ARIP1TAB2; +ARIP1TAB43
== END ==
LOC: M LAB 13:57
PROVIDERS: ATTEND Physician Assistant Medical
DX: Z36.9 Encounter for antenatal screening, unspecified (principal)

== ENCOUNTER → 2022-08-10 | Outpatient (CLI) | payer OTHER | LOC: M LAB 15:47 | PROVIDERS: ATTEND Physician Assistant Medical | DX: Z36.89 Encounter for other specified antenatal screening (principal) ==